=== PATIENT | male | born 1950 | race Caucasian/White ===

== ENCOUNTER 2023-06-17 10:00 | Outpatient (OUT) | payer MEDICARE, SELFPAY ==
[2023-06-17 11:23] LABS: Prostate Specific Antigen Dx 3.79 ng/mL (<=4.00)
== END 2023-06-17 10:01 | disposition home or self-care (01) ==
LOC: LAB 10:03
PROVIDERS: PCP Family Medicine; Visit Provider Urology
DX: R97.20 Elevated prostate specific antigen [PSA] (principal)
CPT/HCPCS: 36415; 84153

== ENCOUNTER 2024-06-26 15:16 | Outpatient (OUT) | payer MEDICARE, SELFPAY ==
[2024-06-26 17:36] LABS: Prostate Specific Antigen Dx 4.32 ng/mL (<=4.00)
== END 2024-06-26 15:17 | disposition home or self-care (01) ==
LOC: LAB 15:16
PROVIDERS: PCP Family Medicine; Visit Provider Urology
DX: R97.20 Elevated prostate specific antigen [PSA] (principal)
CPT/HCPCS: 36415; 84153

== ENCOUNTER 2025-06-27 13:35 | Outpatient (OUT) | payer MEDICARE, SELFPAY ==
--- OUTSIDE RECORDS SUMMARY | 2025-06-27 13:53 | XMS_ITS | CCD ---
Author Organization [facility] Care Team Providers Care Production Tester Name Role Phone SERAFINNILAM CONROY Ashish Primary Care Physician TORY, DR OLIVERA Admitting Unavailable TORY, DR OLIVERA Attending Unavailable SERAFIN, DR DOYLE Primary Care Unavailable TORY, DR OLIVERA Consulting Unavailable EDMUNDO, DR KATIE Palafox Consulting Unavailable MD Serafin [facility] Primary Care Provider MD Pino Rust Attending Provider [phone] Pino Rust Attending Unavailable Pino Rust Ad[facility] Un[facility] Alfa GUAJARDO Attending Unavailable Alfa GUAJARDO Attending Unavailable Serafin MOSHER, Nilam Ashish Unavailable Serafin MOSHER, Nilam Hinojosa Primary Care Provider Serafin MOSHER, Nilam Hinojosa Primary Care Provider [phone] Serafin MOSHER, Nilam Hinojosa Primary Care Provider [phone] Serafin MOSHER Nilam Hinojosa Primary Care Provider [phone] Damian Morrison LPN Unavailable SERAFINNILAM CONROY Primary Care Unavailable ANAYELI CONROY Attending Unavailable SALEEM LOPEZ Attending Unavailable SALEEM LOPEZ Referring Unavailable SERAFIN, NILAM Hinojosa Primary Care Unavailable ALDAIR NICOLE Attending Unavailable SERAFIN, NILAM F Referring Unavailable SERAFIN, NILAM F Primary Care Unavailable SERAFIN, NILAM F Referring Unavailable SERAFIN, NILAM F Primary Care Unavailable SERAFIN, NILAM F Referring Unavailable SERAFIN, NILAM F Primary Care Unavailable EVER WELCH Referring Unavailable SERAFIN, NILAM F Primary Care Unavailable PACO CAPUTO Attending Unavailable PACO CAPUTO Referring Unavailable SERAFIN, NILAM F Primary Care Unavailable EVER WELCH Admitting Unavailable EVER WELCH Attending Unavailable EVER WELCH Referring Unavailable NILAM BETANCOURT Primary Care Unavailable EVER WELCH Admitting Unavailable EVER WELCH Attending Unavailable EVER WELCH Referring Unavailable NILAM BETANCOURT Primary Care Unavailable NILAM BETANCOURT Attending Unavailable NILAM BETANCOURT Attending Unavailable NILAM BETANCOURT Attending Unavailable FABIAN QUINONEZ Attending Unavailable NILAM BETANCOURT Referring Unavailable FABIAN QUINONEZ Referring Unavailable SHANIQUA MARY Attending Unavailable SHANIQUA MARY Referring Unavailable SHANIQUA MARY Referring Unavailable NILAM BETANCOURT Referring Unavailable RAMILA BROWN Attending Unavailable RAMILA BROWN Attending Unavailable RAMILA BROWN Attending Unavailable Allergies Allergy Classification Reported Allergen(s) Allergy Type Date of Onset Reaction(s) Facility (20 sources) Sulfamethoxazole / Trimethoprim; Translations: [SULFAMETHOXAZOLE-TR IMETHOPRIM] Drug Allergy 3 [facility] Work Phone: Medications Current Medications Medication Drug Class(es) Dates Sig (Normalized) Sig (Original) acetaminophen 325 mg oral tablet (20 sources) take 1 tablet by mouth every eight hours as needed acetaminophen (Tylenol) 325 MG tablet Take 325 mg by mouth every 8 (eight) hours if needed. Active acetaminophen 325 mg / HYDROcodone bitartrate 5 mg oral tablet (2 sources) Opioid Agonist Start: 07-27-2024 End: 08-06-2024 take 1 tablet by mouth every six hours for pain HYDROcodone-acetami nophen ([place]) 5-325 MG tablet Indications: Flank pain Take 1 tablet by mouth every 6 (six) hours if needed for severe pain for up to 5 days 20 tablet 07/27/2024 08/06/2024 Active [id number] 200 actuat albuterol 0.09 mg/actuat metered dose inhaler (5 sources) beta2-Adrenergic Agonist Start: 06-12-2024 Albuterol Sulfate Active INHALATION June 12, 2024 12:00am Start: 03-22-2024 End: 03-22-2025 take 2 puff(s) by inhalation every four hours for wheezing albuterol HFA 90 mcg/act inhaler Indications: Wheezing Inhale 2 puffs every 4 (four) hours if needed for wheezing 18 g 03/22/2024 07/26/2024 Discontinued (Therapy completed) ascorbic acid 1000 mg oral t ablet (20 sources) Vitamin C Ascorbic Acid (v itamin C) 1000 MG tablet Orally Active End: 05-07-2025 ascorbic acid, vitamin C, 50 0 mg tablet,chewable in the morning. 05/07/2025 Discontinued atorvastatin 20 mg oral tablet (12 sources) HMG-CoA Reductase Inhibitor Start: 03-12-2025 End: 03-12-2026 take 1 tablet by mouth once daily atorvastatin (Lipitor) 20 MG tablet Indications: Mixed hyperlipidemia Take 1 tablet (20 mg) by mouth Daily 100 tablet 3 03/12/2025 03/12/2026 Active B Complex Vitamins (VITAMIN B COMPLEX 100 IJ) (20 sources) B Complex Vitami ns (VITAMIN B COMPLEX 100 IJ) Orally Active carvedilol 12.5 mg oral tablet (20 sources) alpha-Adrenergic Claudette, beta-Adrenergic Claudette Start: 12-03-2022 End: 12-25-2024 take 1 tablet by mouth once carvedilol (Coreg) 12.5 MG tablet Indications: Benign essential hypertension , Atrial fibrillation, persistent (HCC) Take 1 tablet (12.5 mg) by mouth every 12 (twelve) hours. 90 tablet 1 08/17/2023 Active Start: 06-01-2019 take 1 mg by mouth twice daily carvedilol 3.125 mg Tab mg tab(s), Oral, BID, Refills(s) 0 Start Date: 06/01/19 Status: Ordered Start: 06-01-2019 take 1 mg by mouth twice daily carvedilol 3.125 mg Tab mg tab(s), Oral, BID, Refills(s) 0 Start Date: 06/01/19 Status: Ordered cetirizine hydrochloride 10 mg oral tablet (20 sources) Histamine-1 Receptor Antagonist Start: 06-12-2024 Cetirizine Active MG PO June 12, 2024 12:00am Start: 03-22-2024 End: 09-18-2024 take 1 tablet by mouth once daily cetirizine (ZyrTEC) 10 MG tablet Indications: Wheezing Take 1 tablet (10 mg) by mouth Daily 30 tablet 5 03/22/2024 Active cholecalciferol 0.05 mg oral capsule (7 sources) Vitamin D take 1 capsule by mouth in the morning cholecalciferol, vitamin D3, 2,000 units capsule Take 1 capsule (2,000 Units total) by mouth in the morning. Active 24 hr dilTIAZem hydrochloride 180 mg extended release oral capsule (20 sources) Calcium Channel Claudette Start: 06-12-20 Diltiazem Hcl Active MG PO June 12, 2024 12:00am Start: 05-10-2023 End: 12-25-2024 take 1 capsule by mouth every twenty-four hours in the morning dilTIAZem CD (CARDIZEM CD) 180 mg 24 hr capsule Indications: Permanent atrial fibrillation (CMS-HCC) , Benign essential hypertension Take 1 capsule (180 mg total) by mouth in the morning. 90 capsule 3 12/25/2024 Active Start: 06-01-2019 Cartia XT Oral , Daily, Refills(s) 0 Start Date: 06/01/19 Status: Ordered Cartia XT 180 MG 24 hr capsule 1 capsule 1 (one) time each day at the same time. Active hydroCHLOROthiazide 25 mg oral tablet (20 sources) Thiazide Diuretic Start: 06-12-2024 Hydrochlorothiazide Active MG PO June 12, 2024 12:00am Start: 03-28-2024 End: 10-18-2024 take 1 tablet by mouth once daily hydroCHLOROthiazide (HYDRODiuril) 25 MG tablet Indications: Benign essential hypertension Take 1 tablet (25 mg) by mouth Daily 90 tablet 11 10/18/2024 Active Start: 08-06-2019 take 1 mg by mouth o nce daily hydrochlorothiazide 12.5 mg Cap mg cap(s), Oral, Daily, Refills(s) 0 Start Date: 08/06/19 Status: Ordered Start: 07-11-2019 End: 05-07-2025 take 1 tablet by mouth once daily hydroCHLOROthiazide (HYDRODIURIL) 12.5 mg tablet Take 1 tablet (12.5 mg total) by mouth daily. 45 tablet 3 11/24/2023 05/07/2025 Discontinued magnesium oxide 400 mg oral capsule (20 sources) magnesium oxide 400 MG capsule 1 (one) time each day at the same time. Active End: 05-07-2025 take 1 tablet by mouth in the morning magnesium oxide (MAG-OX) 400 mg tablet Take 1 tablet (400 mg total) by mouth in the morning. 05/07/2025 Discontinued take 250 mg by mouth in the morning MAGNESIUM OXIDE ORAL Take 250 mg by mouth in the morning. Active Multiple Vitamins-Minerals (PRESERVISION AREDS PO) (11 sources) take 1 tablet by mouth once daily Multiple Vitamins-Minerals (PRESERVISION AREDS PO) Take 1 tablet by mouth Daily Active polyethylene glycol 3350 35206 mg powder for oral solution (11 sources) Osmotic Laxative Start: 024 End: polyethylene glycol, PEG, 3350 (MiraLax) 17 GM/SCOOP powder Indications: Slow transit constipation Take 17 g by mouth Daily 527 g 07/27/2024 08/27/2024 Active rivaroxaban 20 mg oral tablet (20 sources) Factor Xa Inhibitor Start: End: rivaroxaban (Xarelto) 20 MG tablet Indications: Atrial fibrillation, persistent (HCC) TAKE 1 TABLET DAILY WITH EVENING MEAL 90 tablet 3 12/10/2024 Active Start: 06-01-2019 Xarelto Oral, Refills(s) 0 Start Date: 06/01/19 Status: Ordered semaglutide, weight loss, (WEGOVY) 1.7 mg/0.75 mL pen injector (1 source) Start: 03-20-2025 End: 07-18-2025 semaglutide, weight loss, (WEGOVY) 1.7 mg/0.75 mL pen injector Inject under the skin once a week. 03/20/2025 07/18/2025 Active Semaglutide-Weight Management (Wegovy) 2.4 MG/0.75ML solution auto-injector (7 sources) Start: 06-11-2025 End: 06-11-2025 inject 2.4 mg by subcutaneous injection every week Semaglutide-Weight Management (Wegovy) 2.4 MG/0.75ML solution auto-injector Indications: Obesity (BMI 30-39.9) INJECT 2.4 MG UNDER THE SKIN ONE TIME PER WEEK 3 mL 11 06/11/2025 06/11/2025 Discontinued Start: 06-11-2025 inject 2.4 mg by sub cutaneous injection every week Semaglutide-Weight Management (Wegovy) 2.4 MG/0.75ML solution auto-injector Indications: Obesity (BMI 30-39.9) INJECT 2.4 MG UNDER THE SKIN ONE TIME PER WEEK 3 mL 11 06/11/2025 Active vit C/E/zinc ox/rose/lut/zeax (ICAPS AREDS2 ORAL) (1 source) take 2 capsules by mouth in the morning vit C/E/zinc ox/rose/lut/zeax (ICAPS AREDS2 ORAL) Take 2 capsules by mouth in the morning. Active vitamin b12 1 mg oral tablet (8 sources) Vitamin B12 End: 05-07-20 take 1 tablet by mouth in the morning cyanocobalamin 1000 MCG tablet Take 1 tablet (1,000 mcg total) by mouth in the morning. Active Completed/Discontinued Medications Medication Drug Class(es) Dates Sig (Normalized) Sig (Original) baclofen 20 mg oral tablet (10 sources) gamma-Aminobutyri c Acid-ergic Agonist Start: 08-06-2024 End: 09-05-2024 take 1 tablet by mouth in the morning, then take 1 tablet by mouth in the evening, then take 1 tablet by mouth at bedtime baclofen (Lioresal) 20 MG tablet Indications: Muscle spasm Take 1 tablet (20 mg) by mouth in the morning and 1 tablet (20 mg) in the evening and 1 tablet (20 mg) before bedtime. 90 tablet 08/06/2024 08/20/2024 Discontinued 5 ml bupivacaine hydrochloride 5 mg/ml injection (4 sources) Amide Local Anesthetic Start: 06-24-2025 End: 06-24-2025 bupivacaine PF (Marcaine) 0.5 % injection 1 mL Start: 06-24-2025 End: 06-24-2025 1 mL, Injection, Once PRN Pr ocedure, Starting on Tue06/24/25 at 1327, For 1 dose cephalexin 500 mg oral capsule (7 sources) Cephalosporin Antibacterial Start: 07-21-2024 End: 08-06-2024 take 1 capsule by mouth in the morning cephalexin (Keflex) 500 MG capsule Take 500 mg by mouth in the morning and 500 mg in the evening. 07/21/2024 08/06/2024 Discontinued gabapentin 100 mg oral capsule (20 sources) Anti-epileptic Agent Start: 06-20-2024 End: 06-20-2025 gabapentin (Neurontin) 100 MG capsule Indications: Neuropathy Take 1 capsule (100 mg) by mouth as needed at bedtime (pain) 30 capsule 3 06/20/2024 08/20/2024 Discontinued (Side effects) 1 ml methylPREDNISolone acetate 40 mg/ml injection (4 sources) Corticosteroid Start: 06-24-2025 End: 06-24-2025 methylPREDNISolone acetate (DEPO-Medrol) injection 40 mg Start: 06-24-2025 End: 06-24-2025 40 mg, Intra-articular, Once PRN Procedure, Starting on Tue06/24/25 at 1327, For 1 dose semaglutide 0.25 mg or 0.5 m g (2 mg/3 mL) pen injector (3 sources) End: 05-07-2025 semaglutide 0.25 mg or 0.5 m g (2 mg/3 mL) pen injector Inject under the skin every 7 days. 05/07/2025 Discontinued semaglutide 0.25 mg or 0.5 mg (2 mg/3 mL) pen injector Inject under the skin every 7 days. Active SEMAGLUTIDE, 1 MG/DOSE, SC (9 sources) End: 03-12-2025 SEMAGLUTIDE, 1 MG/DOSE, SC I nject under the skin 0.6mg 03/12/2025 Discontinued (Therapy completed) SEMAGLUTIDE, 1 M G/DOSE, SC Inject under the skin 0.6mg Active Semaglutide-Weight Managemen t (Wegovy) 1.7 MG/0.75ML solution auto-injector (5 sources) Start: 03-20-2025 End: 06-11-2025 Semaglutide-Weight Managemen t (Wegovy) 1.7 MG/0.75ML solution auto-injector Indications: Obesity (BMI 30-39.9) Inject 1.7 mg under the skin every 7 (seven) days for 30 days, THEN 2.4 mg every 7 (seven) days. 6 mL 2 03/20/2025 06/11/2025 Discontinued (Therapy completed) Start: 03-20-2025 End: 07-18-2025 Semaglutide-Weight Managemen t (Wegovy) 1.7 MG/0.75ML solution auto-injector Indications: Obesity (BMI 30-39.9) Inject 1.7 mg under the skin every 7 (seven) days for 30 days, THEN 2.4 mg every 7 (seven) days. 6 mL 2 03/20/2025 07/18/2025 Active Start: 03-12-2025 End: 07-10-2025 Semaglutide-Weight Managemen t (Wegovy) 1.7 MG/0.75ML solution auto-injector Indications: Obesity (BMI 30-39.9) Inject 1.7 mg under the skin every 7 (seven) days for 30 days, THEN 2.4 mg every 7 (seven) days. 6 mL 2 03/12/2025 07/10/2025 Active Semaglutide-Weight Management 2.4 MG/0.75ML solution auto-injector (3 sources) Start: 06-11-2025 End: 06-11-2025 Semaglutide-Weight Management 2.4 MG/0.75ML solution auto-injector Indications: Obesity (BMI 30-39.9) Inject 2.4 mg under the skin every 7 (seven) days 3 mL 11 06/11/2025 06/11/2025 Discontinued tiZANidine 4 mg oral tablet (4 sources) Central alpha-2 Adrenergic Agonist Start: 08-10-2024 End: 08-20-2024 take 1 tablet by mouth twice daily as needed for muscle spasms tiZANidine (Zanaflex) 4 MG tablet Indications: Muscle spasm Take 1 tablet (4 mg) by mouth 2 (two) times a day as needed for muscle spasms for up to 10 days 30 tablet 08/10/2024 08/20/2024 Discontinued Vitamin B Complex (7 sources) End: 05-07-2025 take 1 tablet by mouth in the morning b complex vitamins tablet Take 1 tablet by mouth in the morning. 05/07/2025 Discontinued take 1 tablet by mouth in the mo rning b complex vitamins tablet Take 1 tablet by mouth in the morning. Active take 1 tablet by mouth in the mo rning b complex vitamins tablet Take 1 tablet by mouth in the morning. 0 Active Vitamin D-Vitamin K (Vitamin K2-Vitamin D3) 45-2000 MCG-UNIT capsule (4 sources) End: 07-26-2024 Vitamin D-Vitamin K (Vitamin K2-Vitamin D3) 45-2000 MCG-UNIT capsule 1 capsule 1 (one) time each day at the same time. 07/26/2024 Discontinued (Therapy completed) Vitamin D-Vitami n K (Vitamin K2-Vitamin D3) 45-2000 MCG-UNIT capsule 1 capsule 1 (one) time each day at the same time. Active Problems Active Problems Problem Classification Problem Date Documented Da te Episodic/Chronic Calculus of urinary tract (5 sources) Kidney stone; Translations: [Calculus of kidney] 12-17-2019 Episodic Cardiac dysrhythmias (20 sources) Atrial fibrillation; Translations: [Persistent atrial fibrillation] Onset: 07-11-2017 Resolved: 12-20-2024 06-01-2019 Chronic Disorders of lipid metabolism (20 sources) Hyperlipidemia; Translations: [Hyperlipidemia, unspecified] Onset: 11-12-2015 Resolved: 11-24-2023 04-08-2023 Chronic Essential hypertension (20 sources) Benign essential hypertension; Translations: [Essential (primary) hypertension] Onset: 07-29-2010 Resolved: 11-24-2023 04-08-2023 Chronic Genitourinary congenital anomalies (6 sources) Congenital lobulation of kidney; 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, fused and horseshoe kidney] Onset: 07-05-2022 Chronic Genitourinary symptoms and ill-defined conditions (3 sources) Urge incontinence of urine 12-17-2019 Chronic Genitourinary symptoms and ill-defined conditions (3 sources) Blood in urine 12-17-2019 Episodic Hyperplasia of prostate (20 sources) Benign prostatic hypertrophy with outflow obstruction; Translations: [Benign prostatic hyperplasia with lower urinary tract symptoms] Onset: 06-28-2019 Chronic Osteoarthritis (20 sources) Osteoarthritis; Translations: [Unspecified osteoarthritis, unspecified site] Onset: 03-08-2016 04-08-2023 Chronic Other and ill-defined heart disease (20 sources) Cardiomegaly; Translations: [Cardiomegaly] Onset: 12-10-2020 04-08-2023 Chronic Other and ill-defined heart disease (20 sources) Disorder of right cardiac ventricle ; Translations: [Cardiomegaly] Onset: 04-08-2023 04-08-2023 Chronic Other connective tissue disease (5 sources) Spasm; Translations: [Other muscle spasm] 08-20-2024 Episodic Other connective tissue disease (4 sources) Pain in left lower limb; Translations: [Pain in left leg] 03-12-2025 Episodic Other connective tissue disease (4 sources) Muscle weakness of upper limb; Translations: [Other symptoms and signs involving the musculoskeletal system] 06-11-2025 Episodic Other connective tissue disease (4 sources) Pain in right arm; Translations: [Pain in right arm] 06-11-2025 Episodic Other connective tissue disease (4 sources) Pain in left arm; Translations: [Pain in left arm] 06-11-2025 Episodic Other diseases of kidney and ureters (1 source) Urinary tract obstruction; Translations: [Other obstructive and reflux uropathy] Onset: 07-05-2022 Episodic Other ear and sense organ disorders (4 sources) Sensorineural hearing loss, bilateral; Translations: [SENSORINEURAL HEAR LOSS BILATERAL] Onset: 10-18-2022 Chronic Other ear and sense organ disorders (1 source) Unspecified hearing loss, right ear; Translations: [UNSPECIFIED HEARING LOSS RIGHT EAR] Onset: 10-23-2022 Chronic Other ear and sense organ disorders (20 sources) Mixed conductive and sensorineural hearing loss of left ear; Translations: [Mixed conductive and sensorineural hearing loss, unilateral, left ear, with unrestricted hearing on the contralateral side] Onset: 04-11-2019 04-08-2023 Chronic Other ear and sense organ disorders (20 sources) Hearing loss of right ear; Translations: [Unspecified hearing loss, right ear] Onset: 04-08-2023 04-08-2023 Chronic Other ear and sense organ disorders (20 sources) Sensorineural hearing loss, bilateral; Translations: [Sensorineural hearing loss, bilateral] Onset: 08-09-2019 04-08-2023 Chronic Other gastrointestinal disorders (2 sources) Slow transit constipation; Translations: [Slow transit constipation] 08-20-2024 Episodic Other lower respiratory disease (2 sources) Fibrosis of lung; Translations: [Pulmonary fibrosis, unspecified] 12-10-2024 Chronic Other male genital disorders (3 sources) Impotence 06-16-2020 Chronic Other nervous system disorders (20 sources) Carpal tunnel syndrome of left wrist; Translations: [Carpal tunnel syndrome, left upper limb] Onset: 12-09-2021 04-08-2023 Chronic Other nervous system disorders (2 sources) Neuropathy; Translations: [Polyneuropathy, unspecified] 12-10-2024 Chronic Other nervous system disorders (2 sources) Involuntary movement; Translations: [Unspecified abnormal involuntary movements] 12-10-2024 Episodic Other nervous system disorders (4 sources) Abnormal gait; Translations: [Unspecified abnormalities of gait and mobility] 03-12-2025 Episodic Other nervous system disorders (4 sources) Numbness of hand; Translations: [Anesthesia of skin] 06-11-2025 Episodic Other nervous system disorders (4 sources) Numbness; Translations: [Anesthesia of skin] 06-11-2025 Episodic Other non-traumatic joint disorders (4 sources) Rotator cuff arthropathy of left shoulder; Translations: [Other specific arthropathies, not elsewhere classified, left shoulder] 06-11-2025 Chronic Other non-traumatic joint disorders (4 sources) Rotator cuff arthropathy of left shoulder 06-11-2025 Episodic Other non-traumatic joint disorders (2 sources) Pain in left shoulder; Translations: [Pain in joint, shoulder region] 06-23-2025 Episodic Other nutritional; endocrine; and metabolic disorders (1 source) Obese class I; Translations: [Body mass index (BMI) 32.0-32.9, adult] Onset: 07-05-2022 Chronic Other nutritional; endocrine; and metabolic disorders (11 sources) Body mass index 30+ - obesity; Translations: [Obesity, unspecified] 07-05-2022 Chronic Other nutritional; endocrine; and metabolic disorders (20 sources) Obesity caused by energy imbalance; Translations: [Class 1 obesity due to excess calories in adult] Onset: 04-02-2019 04-08-2023 Chronic Other screening for suspected conditions (not mental disorders or infectious disease) (13 sources) Abnormal findings on diagnostic imaging of urinary organs; Translations: [Culture positive for methicillin resistant Staphylococcus aureus] Onset: 11-17-2018 06-01-2019 Episodic Comment on above: MRSA buttock wound Other upper respiratory infections (1 source) Chronic maxillary sinusitis; Translations: [CHRONIC MAXILLARY SINUSITIS] Onset: 10-23-2022 Chronic Residual codes; unclassified (20 sources) Daytime hypersomnia; Translations: [Hypersomnia, unspecified] Onset: 12-10-2020 04-08-2023 Chronic Residual codes; unclassified (20 sources) Obstructive sleep apnea syndrome; Translations: [Obstructive sleep apnea (adult) (pediatric)] Onset: 09-16-2010 Resolved: 11-24-2023 04-08-2023 Chronic Residual codes; unclassified (7 sources) FH: Cardiovascular disease; Translations: [Family history of ischemic heart disease and other diseases of the circulatory system] 07-07-2017 Episodic Spondylosis; intervertebral disc disorders; other back problems (20 sources) Cervical spondylosis without myelopathy; Translations: [Spondylosis without myelopathy or radiculopathy, cervical region] Onset: 08-08-2019 Resolved: 10-21-2021 04-08-2023 Chronic Unclassified (1 source) Drug therapy finding 06-29-2024 Unclassified (2 sources) Autogenerated Problem Onset: 04-15-2025 04-15-2025 Unclassified (1 source) Permanent atrial fibrillation; Translations: [Permanent atrial fibrillation] Onset: 10-14-2020 Unclassified (2 sources) unknown 06-24-2025 Past or Other Problems Problem Classification Problem Date Documented Da te Episodic/Chronic Abdominal pain (5 sources) Flank pain; Translations: [Unspecified abdominal pain] Onset: 07-21-2024 07-26-2024 Episodic Cardiac dysrhythmias (20 sources) Bradycardia; Translations: [Bradycardia, unspecified] Onset: 07-11-2017 04-08-2023 Episodic Fracture of lower limb (20 sources) Closed fracture patella, vertical ; Translations: [Displaced longitudinal fracture of right patella, subsequent encounter for closed fracture with delayed healing] Onset: 08-24-2021 04-08-2023 Episodic Mood disorders (20 sources) Mood disorders Onset: 09-29-2020 Resolved: 03-28-2024 03-28-2024 Open wounds of extremities (7 sources) Open wound of left lower leg; Translations: [Unspecified open wound, left lower leg, initial encounter] Onset: 05-11-2023 05-11-2023 Episodic Other aftercare (20 sources) Long-term current use of anticoagulant; 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] Onset: 04-11-2019 Episodic Other connective tissue disease (20 sources) Full thickness rotator cuff tear; Translations: [Complete rotator cuff tear or rupture of unspecified shoulder, not specified as traumatic] Onset: 09-16-2020 04-08-2023 Episodic Other connective tissue disease (20 sources) Rotator cuff arthropathy of right shoulder; Translations: [Unspecified rotator cuff tear or rupture of right shoulder, not specified as traumatic] Onset: 04-23-2019 04-08-2023 Episodic Other connective tissue disease (1 source) Pain in left leg; Translations: [Pain in left leg] Onset: 03-19-2025 Episodic Other lower respiratory disease (8 sources) Dyspnea on exertion; Translations: [Other forms of dyspnea] Onset: 03-14-2018 03-14-2018 Episodic Other lower respiratory disease (1 source) Other forms of dyspnea; Translations: [Other forms of dyspnea] Onset: 03-14-2018 Episodic Other nervous system disorders (1 source) Unspecified abnormalities of gait and mobility; Translations: [Unspecified abnormalities of gait and mobility] Onset: 03-19-2025 Episodic Other nutritional; endocrine; and metabolic disorders (7 sources) Overweight; Translations: [Overweight] Resolved: 11-24-2023 11-24-2023 Episodic Phlebitis; thrombophlebitis and thromboembolism (20 sources) Deep venous thrombosis; Translations: [Acute embolism and thrombosis of unspecified deep veins of unspecified lower extremity] Onset: 06-14-2011 Resolved: 11-24-2023 08-02-2019 Episodic Pulmonary heart disease (20 sources) H/O: pulmonary embolus; Translations: [Personal history of pulmonary embolism] Onset: 03-25-2018 04-08-2023 Episodic Residual codes; unclassified (20 sources) Family history of ischemic heart disease; Translations: [Family history of ischemic heart disease and other diseases of the circulatory system] Onset: 07-29-2010 Resolved: 11-24-2023 04-08-2023 Episodic Residual codes; unclassified (20 sources) History of operative procedure on lumbosacral spinal structure; Translations: [Other specified postprocedural states] Onset: 08-08-2019 Resolved: 11-24-2023 04-08-2023 Episodic Skin and subcutaneous tissue infections (7 sources) Cellulitis; Translations: [Cellulitis, unspecified] Onset: 05-25-2023 05-25-2023 Episodic Spondylosis; intervertebral disc disorders; other back problems (20 sources) Cervicalgia; Translations: [Cervical radiculopathy] Onset: 08-08-2019 04-08-2023 Episodic Unclassified (1 source) Preprocedural examination done 05-08-2025 Results Test Name Value Interpretation Reference Range Facility No Panel Informationon 06-24 LINDA Stauffer 06/24/2025 1:51 PM L Inj/Asp: L subacromial bursa on 06/24/2025 1:27 PM Indications: pain Details: 21 G needle, posterior approach Medications: 40 mg methylPREDNISolone acetate 40 MG/ML; 1 mL bupivacaine PF 0.5 % Outcome: tolerated well, no immediate complications Utilizing aseptic technique with universal precautions . Pt given injection Left Shoulder SA space ( code [id number] LT) Procedure, treatment alternatives, risks and benefits explained, specific risks discussed. Consent was given by the patient. Patient was prepped and draped in the usual sterile fashion. [facility] Edvert e XR Shoulder - left 2 Viewson 06-24-2025 Imaging Result: Left Shoulder AP and Scap Y No acute fracture or dislocation Bone Structures clavicle and scapula and humeral head appear normal alignment, likely post surgical changes with heterotrophic ossification on distal clavicle. Glenohumeral joint space narrowed with subchondral sclerosis and minimal spurring. Soft tissues and limited visualized lung ashby 0- unchanged granuloma left lung from prior CXR Impression: Post surgical changes with mild glenohumeral arthritis. [facility] Edvert e Radiology Study observation (narrative) [facility] Enject ECG 12 leadon 05-08-2025 [facility] CBC panel Auto (Bld)on 07-26 Erythrocyte distribution width (RBC) [Ratio] 12.6 % 11.0 - 15.0 % [facility] Hematocrit (Bld) [Volume fraction] 39.2 % 38.5 - 50.0 % [facility] Hemoglobin (Bld) [Mass/Vol] 13.2 g/dL 13.2 - 17.1 g/dL [facility] MCH (RBC) [Entitic mass] 30.7 pg 27.0 - 33.0 pg [facility] MCHC (RBC) [Mass/Vol] 33.7 g/dL 32.0 - 36.0 g/dL [facility] MCV (RBC) [Entitic vol] 91.2 fL 80.0 - 100.0 fL [facility] Platelet mean volume (Bld) [Entitic vol] 10.1 fL 7.5 - 12.5 fL [facility] Platelets (Bld) [#/Vol] 202 10*3[facility]L [facility] RBC (Bld) [#/Vol] 4.30 10*6/uL [facility] WBC (Bld) [#/Vol] 4.2 10*3/uL [facility] ABDOMEN PELVIS WO IV CONT Raquel 07-26-2024 CT ABDOMEN PELVIS WO IV CONTRAST EXAM: CT - CT ABD PEL WO CONTRAST Clinical History: Right side abdominal pain, getting worse Reference Exam: No comparison Imaging technique: Helically acquired axial source imaging of the abdomen, then the pelvis provided from above the hemidiaphragms, through the symphysis pubis. No IV contrast material. Findings: Lung bases: The lung bases are clear. No pleural effusion. No basilar pneumothorax. What is seen of the heart and pericardium remarkable for generous heart size. Genitourinary system: Horseshoe kidney. Small calcification in the left renal moiety 0.3 cm, apparently nonobstructing. Negative for ureterectasis. The urinary bladder contains no stones. Visceral analysis: Subtle calcification is present in the cephalad dome of the right lobe of the liver. Hepatic parenchymal attenuation is normal, without evidence of space-occupying mass or intrahepatic biliary ductal dilatation by this noncontrasted test. The gallbladder is present. It contains no abnormal density. Negative for extrahepatic biliary ductal dilatation. The adrenal glands, and the pancreas are unremarkable. Partially calcified low-density mass inferior medial spleen 4 cm in size, probably a partially calcified splenic cyst. Retroperitoneum: The abdominal aorta is nonaneurysmal. Minor aortoiliac atherosclerosis. The IVC is unremarkable. No para-aortic or retrocrural lymphadenopathy. The central mesentery is unremarkable. Bowel: Gastric morphology is normal. The caliber of loops of small bowel and colon unremarkable. Fecal loading of the colon, mild severity particularly involving the transverse colon. No pericecal inflammatory phlegmon. The appendix is visualized and is unremarkable. Abdominal and pelvic wall: No regional hernia of the anterior abdominal wall identified. Noncontrast CT pelvis: Prostate glandular calcifications. The prostate gland measures 5.6 cm in width The urinary bladder is unremarkable. Pelvic sidewalls are symmetrical. No pelvic or inguinal lymphadenopathy, mass, or ascites. Bilateral fat-containing inguinal hernias more prominent on the left. Osseous analysis: Gentle levorotoscoliosis of the lower lumbar spine. Multilevel spondylosis and degenerative disc space height loss. Facet hypertrophic arthropathic changes at the lumbosacral junction. Irregular spinous process/posterior elemental interface at L2 suggests a remote fracture of the spinous process base. Background osteopenia. Impression: 1. Negative for urolithiasis. 2. Partially calcified splenic cyst inferior spleen 4 cm in size. 3. Horseshoe kidney. Small calcification in the left renal moiety 0.3 cm. No hydronephrosis. 4. Negative for intestinal stasis. Fecal loading of the colon. 5. No inflammatory phlegmon identified in the abdomen or pelvis. 6. Subacute fracture of the base of the spinous process of L2. Electronically Signed Mateo Segura M.D. 2024-07-26 10:47:32 Normal Not Available Comment on above: Order Comment: RT SI DE PAIN OFF AND ON GETTING WORSE Laboratory - Chemistry and C hemistry - challengeon 07-26-2024 Albumin [Mass/Vol] 4.0 g/dL 3.6 - 5.1 g/dL [facility] Albumin/Globulin [Mass ratio] 1.6 {ratio} [facility] ALP [Catalytic activity/Vol] 102 U/L 35 - 144 U/L [facility] ALT [Catalytic activity/Vol] 38 U/L 9 - 46 U/L [facility] Amylase [Catalytic activity/Vol] 45 U/L 21 - 101 U/L [facility] AST [Catalytic activity/Vol] 27 U/L 10 - 35 U/L [facility] Bilirubin [Mass/Vol] 0.5 mg/dL 0.2 - 1.2 mg/dL [facility] Calcium [Mass/Vol] 8.9 mg/dL 8.6 - 10. 3 mg/dL [facility] Chloride [Moles/Vol] 101 mmol/L 98 - 110 mmol/L [facility] CO2 [Moles/Vol] 29 mmol/L 20 - 32 mmol/L [facility] Creatinine [Mass/Vol] 0.79 mg/dL 0.70 - 1.28 mg/dL [facility] GFR/1.73 sq M.predicted among non-blacks MDRD (S/P/Bld) [Vol rate/Area] 94 mL/min/{1.73_m2} > OR = 60 mL/min/1.73m 2 [facility] Globulin (S) [Mass/Vol] 2.5 g/dL [facility] Glucose [Mass/Vol] 103 mg/dL High 65 - 99 mg/dL [facility] Comment on above: Fasting reference interval For someone without known diabetes, a glucose value between 100 and 125 mg/dL is consistent with prediabetes and should be confirmed with a follow-up test. Lipase [Catalytic activity/Vol] 21 U/L 7 - 60 U/L [facility] Potassium [Moles/Vol] 4.2 mmol/L 3.5 - 5.3 mmol/L [facility] Protein [Mass/Vol] 6.5 g/dL 6.1 - 8.1 g/dL [facility] Sodium [Moles/Vol] 137 mmol/L 135 - 146 mmol/L [facility] Urea nitrogen [Mass/Vol] 18 mg/dL 7 - 25 mg/dL [facility] Urea nitrogen/Creatinin e [Mass ratio] SEE NOTE: [facility] Comment on above: Not Reported: BUN an d Creatinine are within reference range. No Panel Informationon 07-26 Interpretation and review of laboratory results Abnormal [facility] Performing Organizat ion Information Site ID: [id number] Name: [facility] Address: [address] [place] [phone] Director: Albertina Stevenson [facility] Urinalysis macro (dipstick) panel (U)on 07-26-2024 Bilirubin, UA Negative Negative - 4(70) +++ mg/dL [facility] Blood, UA Negative Negative - 50 Jerson/mcL [facility] Clarity, UA Clear [facility] Color, UA Yellow [facility] Glucose, UA Negative Negative - 1999(110) ++++ mg/dL [facility] Interpretation and review of laboratory results Normal [facility] Ketones, UA Negative Negative - 160(16) ++++ mg/dL [facility] Leukocytes, UA Negative Negative - 500+++ Tammy/mcL [facility] Nitrite, UA Negative Negative - Positive [facility] pH, UA 5.0 5 - 9 [facility] e Protein, UA Negative Negative - 1999(20) ++++ mg/dL [facility] Spec Grav, UA 1.025 1 - 1.03 [facility] Urobilinogen, UA 1.0 0.2 - 12 mg/dL [facility] XR CHEST 2 VIEWSon XR CHEST 2 VIEWS EXAM: XR - CHEST 2 VIEWS Clinical History: Acute right flank pain, shorness of breath Reference Exam: 06/12/2024 Findings: The cardiopericardial silhouette is normal in appearance. The pulmonary vessels are not cephalized. Calcified granulomatous residua in the left lung. Minor atherosclerosis of the aortic arch. There is no alveolar edema, pneumonia, or pneumothorax. Negative for pleural effusion. The skeleton is remarkable for fragmentation of the distal left clavicle with ossifications relative to the left coracoclavicular ligament region. Glenohumeral arthropathy on the right. Multilevel thoracic spinal spondylosis and degenerative disc space height loss. Impression: Negative for overt heart failure or pneumonia. Dictated on: 07/26/2024 11:04 AM This report has been electronically signed and approved by the interpreting Radiologist. Electronically Signed Mateo Segura M.D. 2024-07-26 11:05:21 Normal Not Available CBC AND AUTO DIFFon 07-21-20 24 ABSOLUTE BASOPHIL 0.0 X10E9/L Normal 0.0-0.2 [facility] Comment on above: Performed By: #### Nyasia COX CMP, 3040-3 #### [facility] ([id number]) [address] [place] [address]855 ABSOLUTE NEUTROPHIL 3.8 X10E9/L Normal 1.5-6.6 [facility] Comment on above: Performed By: #### Nyasia COX CMP, 3040-3 #### [facility] ([id number]) [address] [place] [address] 24318 Basophils/100 WBC (Bld) 0.8 % Normal [facility] Comment on above: Performed By: #### Nyasia COX CMP, 3040-3 #### [facility] ([id number]) [address] [place] [address] 75131 Eosinophils (Bld) [#/Vol] 0.2 10*3/uL Normal 0.0-0.4 [facility] Comment on above: Performed By: #### Nyasia COX CMP, 3040-01 #### [facility] ([id number]) [address] [place] [address] 51253 Eosinophils/100 WBC (Bld) 3.3 % Normal [facility] Comment on above: Performed By: #### Nyasia COX CMP, 3040-01 #### [facility] ([id number]) [address] [place] [address] 49399 Erythrocyte distribution width (RBC) [Ratio] 13.2 % Normal 11.5-15.0 [facility] Comment on above: Performed By: #### Nyasia COX CMP, 3040-01 #### [facility] ([id number]) [address] [place] [address] 79613 Hematocrit (Bld) [Volume fraction] 36.4 % Low 39-49 [facility] Comment on above: Performed By: #### Nyasia COX CMP, 3040-01 #### [facility] ([id number]) [address] [place] [address] 24329 Hemoglobin (Bld) [Mass/Vol] 12.5 g/dL Low 13.0-17.0 [facility] Comment on above: Performed By: #### Nyasia COX CMP, 3040-01 #### [facility] ([id number]) [address] [place] [address] 18734 Lymphocytes (Bld) [#/Vol] 1.2 10*3/uL Normal 1.0-3.5 [facility] Comment on above: Performed By: #### Nyasia COX CMP, 3040-01 #### [facility] ([id number]) [address] [place] [address] 33658 Lymphocytes/100 WBC (Bld) 21.4 % Normal [facility] Comment on above: Performed By: #### Nyasia COX CMP, 3040-01 #### [facility] ([id number]) [address] [place] [address] 20315 MCH (RBC) [Entitic mass] 31.5 pg Normal 27-34 [facility] Comment on above: Performed By: #### Nyasia COX CMP, 3040-01 #### [facility] ([id number]) [address] [place] [address] 80285 MCHC (RBC) [Mass/Vol] 34.4 g/dL Normal 32-36 [facility] Comment on above: Performed By: #### Nyasia COX CMP, 3040-01 #### [facility] ([id number]) [address] [place] [address] 55430 MCV (RBC) [Entitic vol] 92 fL Normal 80-100 [facility] Comment on above: Performed By: #### Nyasia COX CMP, 3040-01 #### [facility] ([id number]) [address] [place] [address] 56099 Monocytes (Bld) [#/Vol] 0.4 10*3/uL Normal 0-0.9 [facility] Comment on above: Performed By: #### Nyasia COX CMP, 3040-01 #### [facility] ([id number]) [address] [place] [address] 72746 Monocytes/100 WBC (Bld) 6.4 % Normal [facility] Comment on above: Performed By: #### Nyasia COX CMP, 3040-01 #### [facility] ([id number]) [address] [place] [address] 62516 Neutrophils/100 WBC (Bld) 68.1 % Normal [facility] Comment on above: Performed By: #### Nyasia COX CMP, 3040-01 #### [facility] ([id number]) [address] [place] [address] 59246 Platelet mean volume (Bld) [Entitic vol] 7.6 fL Normal 7-12 [facility] Comment on above: Performed By: #### C KENNY, CMP, 3040-3 #### [facility] ([id number]) [address] [place] [address] 30429 Platelets (Bld) [#/Vol] 183 10*3/uL Normal 150-450 [facility] Comment on above: Performed By: #### Nyasia COX CMP, 3039-3 #### [facility] ([id number]) [address] [place] [address] 30326 RBC COUNT 3.98 X10E12/L Low 4.10-5.70 [facility] Comment on above: Performed By: #### Nyasia COX CMP, 3039-3 #### [facility] ([id number]) [address] [place] [address] 98212 WBC (Bld) [#/Vol] 5.6 10*3/uL Normal 4.0-11.0 [facility] Comment on above: Performed By: #### Nyasia COX, CMP, 0-3 #### [facility] ([id number]) [address] [place] [address] 04964 COMPREHENSIVE METABOLIC PANE Antony 07-21-2024 Albumin [Mass/Vol] 3.7 g/dL Normal 3.2-5.3 [facility] Comment on above: Performed By: #### Nyasia COX, CMP, 3039-3 #### [facility] ([id number]) [address] [place] [address] 33001 ALP [Catalytic activity/Vol] 90 U/L Normal 39-130 [facility] Comment on above: Performed By: #### Nyasia BCA, CMP, 3039-3 #### [facility] ([id number]) [address] [place] [address] 61844 ALT [Catalytic activity/Vol] 45 U/L High 0-40 [facility] Comment on above: Performed By: #### C BCA, CMP, 3039-3 #### [facility] ([id number]) [address] [place] [address] 70015 Anion gap [Moles/Vol] 8 mmol/L Normal 5-15 [facility] Comment on above: Performed By: #### C BCA, CMP, 3039-3 #### [facility] ([id number]) [address] [place] [address] 91797 AST [Catalytic activity/Vol] 30 U/L Normal 0-41 [facility] Comment on above: Performed By: #### Nyasia BCA, CMP, 3039-3 #### [facility] ([id number]) [address] [place] [address] 43261 Bilirubin [Mass/Vol] 0.6 mg/dL Normal 0.3-1.2 [facility] Comment on above: Performed By: #### Nyasia BCA, CMP, 3 #### [facility] ([id number]) [address] [place] [address] 01190 Calcium [Mass/Vol] 8.5 mg/dL Normal 8.5-10.5 [facility] Comment on above: Performed By: #### Nyasia BCA, CMP, 3039-3 #### [facility] ([id number]) [address] [place] [address] 95945 Chloride [Moles/Vol] 101 mmol/L Normal 98-109 [facility] Comment on above: Performed By: #### C BCA, CMP, 3039-3 #### [facility] ([id number]) [address] [place] [address] 92716 CO2 [Moles/Vol] 26 mmol/L Normal 22-32 [facility] Comment on above: Performed By: #### Nyasia BCA, CMP, 3039-3 #### [facility] ([id number]) [address] [place] [address] Creatinine [Mass/Vol] 1.16 mg/dL Normal 0.70-1.20 [facility] Comment on above: Result Comment: METH OD TRACEABLE TO IDMS STANDARD Performed By: #### C RAHAT COX, 3 #### [facility] ([id number]) [address] [place] [address] 53785 GFR/1.73 sq M.predicted among non-blacks MDRD (S/P/Bld) [Vol rate/Area] 67 mL/min/{1.73_m2} Normal >59 [facility] Comment on above: Result Comment: Reported eGFR is based on the CKD-EPI 2020 equation that does not use a race coefficient. Performed By: #### C RAHAT COX, 3040-01 #### [facility] ([id number]) [address] [place] [address] 33983 Glucose [Mass/Vol] 121 mg/dL High 65-99 [facility] Comment on above: Performed By: #### C RAHAT COX, 3040-01 #### [facility] ([id number]) [address] [place] [address] 86317 Potassium [Moles/Vol] 3.7 mmol/L Normal 3.5-5.0 [facility] Comment on above: Performed By: #### Nyasia COX CMP, 3040-01 #### [facility] ([id number]) [address] [place] [address] 46858 Protein [Mass/Vol] 6.2 g/dL Normal 6.0-8.0 [facility] Comment on above: Performed By: #### Nyasia COX CMP, 3040-01 #### [facility] ([id number]) [address] [place] [address] 66163 Sodium [Moles/Vol] 135 mmol/L Normal 134-146 [facility] Comment on above: Performed By: #### C RAHAT COX, 3040-01 #### [facility] ([id number]) [address] [facility] [place] [address] Urea nitrogen [Mass/Vol] 21 mg/dL Normal 5-27 [facility] Comment on above: Performed By: #### C KENNY, RAHAT, 3040-3 #### [facility] ([id number]) [address] [facility], [place] [address] CT ABDOMEN AND PELVIS WO CON Ton 07-21-2024 CT ABDOMEN AND PELVIS WO CONT CT ABDOMEN AND PELVIS WO CONT CT ABDOMEN AND PELVIS WO CONT CLINICAL INDICATION: Abdominal/flank pain, stone suspected; right flank pain . COMPARISON STUDY: CT abdomen and pelvis 08/17/2017. CTA chest 11/24/2020. TECHNIQUE: CT scan of the abdomen and pelvis performed without IV or PO contrast. Coronal and sagittal reformats generated and reviewed. All CT scans at this facility use dose modulation, iterative reconstruction, and/or weight based dosing when appropriate to reduce radiation dose to as low as reasonably achievable. FINDINGS: Abdominal viscera and vasculature limited in evaluation secondary to lack of IV contrast. LOWER THORAX: Similar-appearing calcified granuloma in the superior lingula likely sequelae of remote granulomatous infection. Trace subsegmental atelectasis. Biatrial dilatation. Coronary artery calcifications including heavy calcifications in the LAD. 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 No other focal hepatic lesions within limitations for technique. No biliary ductal dilitation. Gallbladder is unremarkable. SPLEEN: No splenomegaly. Unchanged hypodensity with peripheral calcification in the posterior spleen, likely representing a cyst or pseudocyst. PANCREAS: No focal masses or ductal dilatation within limitations for technique. ADRENALS: No adrenal nodules. KIDNEYS/URETERS: Horseshoe kidney. There is mild perinephric fat stranding as well as fat stranding extending in the retroperitoneum on the right, at most slightly increased along the retroperitoneum of uncertain acuity/significance. 3 mm nonobstructing left renal calculus. No ureteral calculus or collecting system dilatation. No bladder calculi. Multiple bilateral fluid attenuating likely simple renal cysts requiring no additional follow-up. GI TRACT: No dilatation or wall thickening. Unchanged duodenal diverticulum. Sigmoid diverticulosis without CT evidence of diverticulitis. The appendix is normal. PELVIC ORGANS/BLADDER: Dystrophic calcifications of the prostate, which is mildly enlarged. PERITONEUM/RETROPERITON EUM: No free air or significant free fluid. LYMPH NODES: No enlarged lymph nodes. Scattered mesenteric lymph nodes are not enlarged by size criteria. Prominent inguinal lymph nodes are not enlarged by size criteria.. VESSELS: No abdominal aortic aneurysm. BONES AND SOFT TISSUES: No suspicious osseous lesion. Significant multilevel degenerative changes of the spine. ABDOMINAL WALL: Periumbilical hernia with a small portion of protruding small bowel. Bilateral inguinal fat-containing hernias, left greater than right. IMPRESSION: * There is a 3 mm nonobstructing left renal calculus. No ureteral stone or collecting system dilatation. * Horseshoe kidney. Mild perinephric fat stranding and mild right retroperitoneal fat stranding as detailed above, slightly increased in the right retroperitoneum. This is of uncertain acuity/significance. Correlate for pyelonephritis. * Sigmoid diverticulosis without CT evidence of diverticulitis. Approved by Resident Paco Tubbs MD on 07/21/2024 1:57 PM I, Conrad Arnold MD have personally reviewed the image(s) and agree with and/or edited the report Finalized by Conrad Arnold MD on 07/21/2024 3:05 PM Normal [facility] LIPASEon 07-21-2024 Lipase [Catalytic activity/Vol] 40 U/L Normal 17-40 [facility] Comment on above: Performed By: #### C BCA, CMP, 3040-3 #### [facility] ([id number]) [address] [facility], [place] [address] URINE CULTUREon 07-21-2024 Bacteria identified Cx Nom (U) CULTURE RESULTS <10,000 ORGANISMS/ML NORMAL URO GENITAL JUAN ALBERTO Normal [facility] Comment on above: Performed By: #### 6 30-4 #### [facility] ([id number]) [address] [place] [address], [address] [place] [address] URN MACROSCOPIC NURon 2023 BILIRUBIN GILBERT Negative Normal NEG [facility] Comment on above: Performed By: #### N UM #### [facility] ([id number]) [address] [place] [address] 77130 BLOOD/HGB GILBERT Negative Normal NEG [facility] Comment on above: Performed By: #### N UM #### [facility] ([id number]) [address] [place] [address] [place] [address] GLUCOSE GILBERT Negative Normal NEG [facility] Comment on above: Performed By: #### N UM #### [facility] ([id number]) [address] [place] [address] [place] [address] KETONES GILBERT Negative Normal NEG [facility] Comment on above: Performed By: #### N UM #### [facility] ([id number]) [address] [place] [address] 61394 LEUKOCYTE ESTERASE GILBERT Negative Normal [facility] Comment on above: Performed By: #### N UM #### [facility] ([id number]) [address] [place] [address] 08500 NITRITE GILBERT Negative Normal [facility] Comment on above: Performed By: #### N UM #### [facility] ([id number]) [address] [place] [address] 51715 PH GILBERT 5.0 Normal 5.0-8.5 [facility] Comment on above: Performed By: #### N UM #### [facility] ([id number]) [address] [place] [address] 27289 PROTEIN GILBERT 30 mg/dL Abnormal NEG [facility] Comment on above: Performed By: #### N UM #### [facility] ([id number]) [address] [place] [address] [place] [address] SPECIFIC GRAVITY GILBERT >=1.030 Normal 1.003-1.035 [facility] Comment on above: Performed By: #### N UM #### [facility] ([id number]) [address] [place] [id number] UROBILINOGEN GILBERT 0.2 eu/dL Normal <1.1 [facility] Comment on above: Performed By: #### N UM #### [facility] ([id number]) [address] [place] [id number] Urology Office/Clinic Noteon 06-29-2024 Urology Office/Clinic Note Urology Office/Clinic Note Chief Complaint BPH with urinary obstruction HPI Staff 1 yr w/ PSA. Dx: BPH with urinary obstruction, elevated PSA, horseshoe kidney. S/p TURP 07/19/19, TRUS/bx 11/30/18 and 11/02/18. Previous PSA 06/17/23 - 3.79 Current PSA 06/26/24 - 4.32 Dysuria: no Incomplete bladder emptying: no Hematuria: no Frequency: no Urgency: no Nocturia: 0-1x Stream: no straining or intermittency Leaking: occasionally Post void dripping: occasionally Wearing pads/ Depends: no Urge incontinence: no Stress incontinence: no Incontinence without Sensory Awareness: no Abdominal pain: no Flank pain: no Sexual complaints: no History of Present Illness Tests reviewed: reviewed UA and PSA. I have reviewed the previous health record information and history for this patient from Dr. Guajardo. I have reviewed and verified the staff HPI to be accurate for this encounter. There have been no associated fever, chills, flank pain, or blood in the urine. Denies any urinary infections since last encounter. Review of Systems PHQ Score Initial Depression Screen Score: 0 SCORE ROS - Provider Constitutional: denies weight loss, denies hot flashes. Eyes: denies eye problems. Gastrointestinal: denies nausea, denies vomiting. Cardiovascular: denies chest pain or angina. Integumentary: no dryness Musculoskeletal: denies musculoskeletal symptoms. ENMT: denies otolaryngeal symptoms. Respiratory: no shortness of breath. Heme/Lymph: denies easy bleeding tendency, denies easy bruising tendency. Psychiatric: no confusion, no anxiety. Genitourinary: See HPI. Physical Exam Vitals & Measurements T: 37 ?C(Temporal Artery) HR: 68(Peripheral) RR: 16 BP: 111/64 HT: 70 in HT: 178 cm WT: 100 kg WT: 220 lb BMI: 31.56 General Appearance: alert, no distress, well nourished, well developed male. Assessment/Plan 73 yo male here for annual follow up with PSA. 1. Elevated PSA (R97.20: Elevated prostate specific antigen [PSA]) PSA: 06/11/20 - 3.32 06/19/21 - 4.75 06/30/22 - 2.73 06/17/23 - 3.79 06/26/24 - 4.32 Neg TRUS/bx 11/30/18. PSA continues to fluctuate. Will cont to monitor. Likely will stop PSA checks at 75 yo unless next PSA would continue to rise. -PSA in 12 mos 2. BPH with urinary obstruction (N40.1: Benign prostatic hyperplasia with lower urinary tract symptoms) S/p TURP 07/19/19. UA today neg for infection or blood. Not taking any BPH meds. No urinary concerns. -Cont symptomatic monitoring 3. 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 No issues at this time. 4. 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 Hx of DVT. Denies CVA. Elevated risk for periop complications. Follow-up With When Contact Information CASANDRA MOSHER, Alfa Palafox, URL [address] [place], [place] [id number]- Additional Instructions: 1 year w/ PSA Patient Education Prostate Cancer Screening Mer Botello, personally scribed for Dr. Guajardo on 06/29/2024 09:17:43. . Documentation recorded by the scribeMer, accurately reflects the services(s) I performed and decisions made by me. Authenticated by Dr. Guajardo on 06/29/2024 09:23:04. Problem List/Past Medical History Ongoing Abnormal radiologic findings on diagnostic imaging of renal pelvis, ureter, or bladder Anticoagulated Atrial fibrillation BMI 32.0-32.9,adult BPH with urinary obstruction Deep vein thrombosis Elevated PSA Erectile dysfunction Hematuria Horseshoe kidney Kidney stone MRSA (methicillin resistant staph aureus) culture positive Urge incontinence Historical No qualifying data Procedure/Surgical History Bladder stone analysis (07/19/2019), TURP - Transurethral resection of prostate (07/19/2019), Transrectal biopsy of prostate using ultrasound (US) guidance (11/30/2018), Transrectal biopsy of prostate using ultrasound (US) guidance (11/02/2018), Cardiac ablation using fluoroscopy guidance, Colonoscopy, Repair of rotator cuff of shoulder, Vasectomy. Medications Cartia XT, Oral, Daily carvedilol 3.125 mg Tab, Oral, BID hydrochlorothiazide 12.5 mg Cap, Oral, Daily Xarelto, Oral Allergies No Known Allergies Social History Alcohol Current, 1-2 times per year, 06/01/2019 Tobacco Never (less than 100 in lifetime) Tobacco Use:. Never Smokeless Tobacco Use:. Household tobacco concerns: No., 06/29/2024 Family History Hypertension: Father. Prostate cancer: Father. Immunizations Vaccine Date Status Comments SARS-CoV-2 (COVID-19) [id number] 10/14/2022 Recorded influenza virus vaccine, inactivated 08/10/2022 Recorded SARS-CoV-2 (COVID-19) mRNA-1273 vaccine 10/27/2021 Recorded 2023-06-27: TPV70 influenza virus vaccine, inactivated 08/04/2021 Recorded diphtheria/pertussis, acel/tetanus adult 06/03/2021 Recorded SARS-CoV-2 (more content not included)... Normal [facility] Comment on above: Result Comment: Elec tronically Signed By: Alfa GUAJARDO MD\.br\Date and Time Signed: 06/29/24 09:23 EDT\.br\Electronically Co-Signed By: Mer Clark\.br\Date and Time Co-Signed: 06/29/24 09:17 EDT XR cervical spine w flex/ext on 06-11-2024 XR cervical spine w flex/ext [facility] [place] [address] XRay Report Signed Patient: Sheri Loyola MR#: [id number] 8 : 1950 Acct:[id number] Age/Sex: 73 / M ADM Date: 06/11/24 Loc: XD Room: Type: [facility] Attending Dr: Pino Rust MD Copies to: Pino Rust MD Ordering Provider: Pino Rust MD Date of Service: 06/11/24 XR/XR cervical spine w flex/ext: M54.2 - Cervicalgia 7 views ofcervical spinewith flexion and extension HISTORY: Bilateral arm and leg numbness. Neck pain COMPARISON: None POSTOPERATIVE CHANGES: None BONY ALIGNMENT: Straightening HYPERMOBILITY::No hypermobility LISTHESIS:3 mm C4-5 anterolisthesis FRACTURE: None DISC DEGENERATION: C5-6 and C6-7 extensive spondylosis with joint space narrowing and marginal spurring. Moderate C3-4 C4-5 spondylosis. Sensitive multilevel facet degeneration. FACETS: Multilevel degeneration FORAMEN: C3-C7 bilateral bony neural foraminal narrowing DENS: Intact CRANIOCERVICAL JUNCTION: Unremarkable SOFT TISSUES: Unremarkable XR/XR cervical spine w flex/ext IMPRESSION: No hypermobility. 3 mm C4-5 anterolisthesis. Extensive degeneration. Impression dictated by: Chuck Rios M.D.06/11/2024 3:28 PM Dictation Location: [place] [address] Transcribed By: [facility] 06/11/24 1528 Dictated By: Chuck Rios DO 06/11/24 1525 Signed By: 06/11/24 1528 Normal [facility] POCT EKGOrdered By: Mercedes Mena on 11-24-2023 [facility] CREATININEon 10-18-2022 Creatinine [Mass/Vol] 1.03 mg/dL Normal 0.70-1.30 [facility] Comment on above: Performed By: #### C ATTILA #### [facility] [address] [address] [address] Karen Spencer EGFR-AF IRAQI >60 Normal >=60 [facility] Comment on above: Performed By: #### C ATTILA #### [facility] [address] [address] [address] Karen Spencer EGFR-NON AF IRAQI >60 Normal >=60 [facility] Comment on above: Performed By: #### C ATTILA #### [facility] [address] [address] [address] Karen Lovelace 06-23-2020 CNPN Telephone (CARDMN) SHERI LOYOLA ([id number]) 1950 M Date Time Provider Department 06/23/20 JESUS HERNANDEZ During your visit today, we recorded the following information about you: Cady Salas Adm 06/23/2020 4:11 PM Signed Records scanned in [facility] drive, below, and my nurse doc folder on my desk. Allergies As of Date: 06/23/2020 (No Known Allergies) Date Reviewed: 01/01/2020 Reviewed by: Jerod West - Fully Assessed Reason for Visit: Patient Update [1234] Prescriptions as of 06/19/2021 - CARTIA XT 180 mg 24 hr capsule TAKE ONE CAPSULE BY MOUTH DAILY - hydroCHLOROthiazide (HYDRODIURIL, ESIDRIX) 12.5 mg tablet - MYRBETRIQ 50 mg Tb24 - oxybutynin ER (DITROPAN XL) 10 mg 24 hr tablet - iv contrast (will be provided with radiology test) MRI Brain Inject, intravenously, once for 1 dose.No IV access, insert saline lock prior to beginning of sedation, infusion, injection of imaging exam.Discontinue saline lock post exam. If Pt. has a central line or IVAD, may access for administration according to line specific nursing protocol.Once exam is complete flush line and de-access according to line specific nursing protocol in the MR contrast administration guidelines link - ascorbic acid, vitamin C, (VITAMIN C) 500 mg tablet Take 500 mg by mouth once daily. - magnesium oxide (MAG-OX) 400 mg (241.3 mg magnesium) tablet Take 400 mg by mouth once daily. - cholecalciferol (VITAMIN D-3) 2,000 unit tablet Take 2,000 Units by mouth once daily. - cyanocobalamin (VITAMIN B-12) 100 mcg tab Take 1,000 mcg by mouth once daily. - carvedilol (COREG) 12.5 mg tablet Take 12.5 mg by mouth twice daily with meals. - rivaroxaban (XARELTO) 20 mg tablet Take 20 mg by mouth daily with dinner. - tamsulosin ER (FLOMAX) 0.4 mg cap Take 0.4 mg by mouth once daily. Problem List As Of Date 06/23/2020 Noted Resolved Atrial fibrillation, persistent (HCC) [I48.19] Essential hypertension [I10] Obstructive sleep apnea syndrome [G47.33] 04/02/2019 Class 1 obesity due to excess calories in adult*04/02/2019 SOB (shortness of breath) [R06.02] 04/02/2019 Right rotator cuff tear arthropathy [M75.101, M*04/23/2019 Sensorineural hearing loss, bilateral [H90.3] 08/09/2019 Encounter Status:Closed by CADY SHERMAN on 06/19/21 Normal [facility] Vital Signs Date Time Vital Sign Value Performing Clinician Faci lity 06-11-2025 11:19-0400 Body height 177.8 cm Nilam Betancourt MD Work Phone: [facility] 06-11-2025 11:19-0400 Body mass index (BMI) [Ratio] 30.19 kg/m2 Nilam Betancourt MD Work Phone: [facility] 06-11-2025 11:19-040 Body weight 95.44 kg Nilam Betancourt MD Work Phone: [facility] 06-11-2025 11:19-0400 Diastolic blood pressure 82 mm[Hg] Nilam Betancourt MD Work Phone: [facility] 06-11-2025 11:19-0400 Heart rate 104 /min Nilam Betancourt MD Work Phone: [facility] 06-11-2025 11:19-0400 Respiratory rate 18 /min Nilam Betancourt MD Work Phone: [facility] 06-11-2025 11:19-0400 SaO2% (BldA) [Mass fraction] 97 % Nilam Betancourt MD Work Phone: [facility] 06-11-2025 11:19-0400 Systolic blood pressure 136 mm[Hg] Nilam Betancourt MD Work Phone: [facility] 05-07-2025 09:11-0400 Body height 177.8 cm Pm 1 [facility] 05-07-2025 09:11-0400 Body mass index (BMI) [Ratio] 29.13 kg/m2 [facility] 1 [facility] 05-07-2025 09:11-0400 Body weight 92.08 kg Pmh 1 [facility] 03-12-2025 09:56-0400 Body height 177.8 cm Nilam Betancourt MD Work Phone: [facility] 03-12-2025 09:56-0400 Body mass index (BMI) [Ratio] 30.62 kg/m2 Nilam Betancourt MD Work Phone: [facility] 03-12-2025 09:56-0400 Body weight 96.8 kg Nilam Betancourt MD Work Phone: [facility] 03-12-2025 09:56-0400 Diastolic blood pressure 70 mm[Hg] Nilam Betancourt MD Work Phone: [facility] 03-12-2025 09:56-0400 Heart rate 80 /min Nilam Betancourt MD Work Phone: [facility] 03-12-2025 09:56-0400 Respiratory rate 18 /min Nilam eBtancourt MD Work Phone: [facility] 03-12-2025 09:56-0400 SaO2% (BldA) [Mass fraction] 97 % Nilam Betancourt MD Work Phone: [facility] 03-12-2025 09:56-0400 Systolic blood pressure 116 mm[Hg] Nilam Betancourt MD Work Phone: [facility] 12-20-2024 14:19-0500 Body height 177.8 cm Aldair Nicole MD Work Phone: [facility] 12-20-2024 14:19-0500 Body mass index (BMI) [Ratio] 31.14 kg/m2 Aldair Nicole MD Work Phone: [facility] 12-20-2024 14:19-0500 Body weight 98.43 kg Aldair Nicole MD Work Phone: [facility] 12-20-2024 14:19-0500 Diastolic blood pressure 90 mm[Hg] Aldair Nicole MD Work Phone: [facility] 12-20-2024 14:19-0500 Heart rate 54 /min Aldair Nicole MD Work Phone: [facility] 12-20-2024 14:19-0500 SaO2% (BldA) [Mass fraction] 97 % Aldair Nicole MD Work Phone: [facility] 12-20-2024 14:19-0500 Systolic blood pressure 136 mm[Hg] Aldair Nicole MD Work Phone: [facility] 12-10-2024 10:08-0500 Body height 177.8 cm Nilam Betancourt MD Work Phone: [facility] 12-10-2024 10:08-0500 Body mass index (BMI) [Ratio] 31.57 kg/m2 Nilam Betancourt MD Work Phone: [facility] 12-10-2024 10:08-0500 Body weight 99.79 kg Nilam Betancourt MD Work Phone: [facility] 12-10-2024 10:08-0500 Diastolic blood pressure 74 mm[Hg] Nilam Betancourt MD Work Phone: [facility] 12-10-2024 10:08-0500 Heart rate 76 /min Nilam Betancourt MD Work Phone: [facility] 12-10-2024 10:08-0500 Respiratory rate 18 /min Nilam Betancourt MD Work Phone: [facility] 12-10-2024 10:08-0500 SaO2% (BldA) [Mass fraction] 95 % Nilam Betancourt MD Work Phone: [facility] 12-10-2024 10:08-0500 Systolic blood pressure 136 mm[Hg] Nilam Betancourt MD Work Phone: [facility] 10-01-2024 17:27-0500 Body height 177.8 cm Ramila Brown OPERATIONS SYSTEMS SPECIALIST Work Phone: [facility] 10-01-2024 17:27-0500 Body mass index (BMI) [Ratio] 31.85 kg/m2 Ramila Brown OPERATIONS SYSTEMS SPECIALIST Work Phone: [facility] 10-01-2024 17:27-0500 Body weight 100.7 kg Ramila Brown OPERATIONS SYSTEMS SPECIALIST Work Phone: [facility] 10-01-2024 17:27-0500 Diastolic blood pressure 76 mm[Hg] Ramila Brown OPERATIONS SYSTEMS SPECIALIST Work Phone: [facility] 10-01-2024 17:27-0500 Heart rate 88 /min Ramila Brown OPERATIONS SYSTEMS SPECIALIST Work Phone: [facility] 10-01-2024 17:27-0500 Respiratory rate 18 /min Ramila Brown OPERATIONS SYSTEMS SPECIALIST Work Phone: [facility] 10-01-2024 17:27-0500 SaO2% (BldA) [Mass fraction] 94 % Ramila Brown OPERATIONS SYSTEMS SPECIALIST Work Phone: [facility] 10-01-2024 17:27-0500 Systolic blood pressure 128 mm[Hg] Ramila Brown OPERATIONS SYSTEMS SPECIALIST Work Phone: [facility] 08-20-2024 14:29-0400 Body height 177.8 cm Ramila Brown OPERATIONS SYSTEMS SPECIALIST Work Phone: [facility] 08-20-2024 14:29-0400 Body mass index (BMI) [Ratio] 32.86 kg/m2 Ramila Brown OPERATIONS SYSTEMS SPECIALIST Work Phone: [facility] 08-20-2024 14:29-0400 Body weight 103.87 kg Ramila Brown OPERATIONS SYSTEMS SPECIALIST Work Phone: [facility] 08-20-2024 14:29-0400 Diastolic blood pressure 76 mm[Hg] Ramila Brown OPERATIONS SYSTEMS SPECIALIST Work Phone: [facility] 08-20-2024 14:29-0400 Heart rate 72 /min Ramila Brown OPERATIONS SYSTEMS SPECIALIST Work Phone: [facility] 08-20-2024 14:29-0400 Respiratory rate 18 /min Ramila Brown OPERATIONS SYSTEMS SPECIALIST Work Phone: [facility] 08-20-2024 14:29-0400 SaO2% (BldA) [Mass fraction] 99 % Ramila Brown OPERATIONS SYSTEMS SPECIALIST Work Phone: [facility] 08-20-2024 14:29-0400 Systolic blood pressure 128 mm[Hg] Ramila Brown OPERATIONS SYSTEMS SPECIALIST Work Phone: [facility] 08-06-2024 18:50-0400 Body height 177.8 cm Ramila Brown OPERATIONS SYSTEMS SPECIALIST Work Phone: [facility] 08-06-2024 18:50-0400 Body mass index (BMI) [Ratio] 32.71 kg/m2 Ramila Brown OPERATIONS SYSTEMS SPECIALIST Work Phone: [facility] 08-06-2024 18:50-0400 Body weight 103.42 kg Ramila Brown OPERATIONS SYSTEMS SPECIALIST Work Phone: [facility] 08-06-2024 18:50-0400 Diastolic blood pressure 76 mm[Hg] Ramila Brown OPERATIONS SYSTEMS SPECIALIST Work Phone: [facility] 08-06-2024 18:50-0400 Heart rate 76 /min Ramila Brown OPERATIONS SYSTEMS SPECIALIST Work Phone: [facility] 08-06-2024 18:50-0400 Respiratory rate 18 /min Ramila Brown OPERATIONS SYSTEMS SPECIALIST Work Phone: [facility] 08-06-2024 18:50-0400 SaO2% (BldA) [Mass fraction] 99 % Ramila Brown OPERATIONS SYSTEMS SPECIALIST Work Phone: [facility] 08-06-2024 18:50-0400 Systolic blood pressure 130 mm[Hg] Ramila Brown OPERATIONS SYSTEMS SPECIALIST Work Phone: [facility] 07-26-2024 09:19-0400 Body height 177.8 cm Shaniqua Mary MD Work Phone: [facility] 07-26-2024 09:19-0400 Body mass index (BMI) [Ratio] 32.86 kg/m2 Shaniqua Mary MD Work Phone: [facility] 07-26-2024 09:19-0400 Body weight 103.87 kg hSaniqua Mary MD Work Phone: [facility] 07-26-2024 09:19-0400 Diastolic blood pressure 66 mm[Hg] Shaniqua Mary MD Work Phone: [facility] 07-26-2024 09:19-0400 Heart rate 72 /min Shaniqua Mary MD Work Phone: [facility] 07-26-2024 09:19-0400 SaO2% (BldA) [Mass fraction] 97 % Shaniqua Mary MD Work Phone: [facility] 07-26-2024 09:19-0400 Systolic blood pressure 106 mm[Hg] Shaniqua Mary MD Work Phone: [facility] 06-29-2024 08:46-0400 Blood Pressure Location Alfa GUAJARDO [facility] 06-29-2024 08:46-0400 Body temperature 98.6 [degF] Alfa GUAJARDO [facility] 06-29-2024 08:46-0400 Diastolic blood pressure 64 mm[Hg] Alfa GUAJARDO [facility] 06-29-2024 08:46-0400 Heart rate 68 /min Alfa GUAJARDO [facility] 06-29-2024 08:46-0400 Respiratory rate 16 /min Alfa GUAJARDO [facility] 06-29-2024 08:46-0400 Systolic blood pressure 111 mm[Hg] Alfa GUAJARDO [facility] 11-24-2023 14:31-0500 Body height 177.8 cm Aldair Nicole MD Work Phone: [facility] 11-24-2023 14:31-0500 Body mass index (BMI) [Ratio] 32.86 kg/m2 Aldair Nicole MD Work Phone: [facility] 11-24-2023 14:31-0500 Body weight 103.87 kg Aldair Nicole MD Work Phone: [facility] 11-24-2023 14:31-0500 Diastolic blood pressure 80 mm[Hg] Aldair Nicole MD Work Phone: [facility] 11-24-2023 14:31-0500 Heart rate 87 /min Aldair Nicole MD Work Phone: [facility] 11-24-2023 14:31-0500 SaO2% (BldA) [Mass fraction] 95 % Aldair Nicole MD Work Phone: [facility] 11-24-2023 14:31-0500 Systolic blood pressure 142 mm[Hg] Aldair Nicole MD Work Phone: [facility] 06-27-2023 08:48-0400 Blood Pressure Location Alfa GUAJARDO [facility] 06-27-2023 08:48-0400 Diastolic blood pressure 74 mm[Hg] Alfa GUAJARDO [facility] 06-27-2023 08:48-0400 Heart rate 68 /min Alfa GUAJARDO [facility] 06-27-2023 08:48-0400 Respiratory rate 16 /min Alfa GUAJARDO [facility] 06-27-2023 08:48-0400 Systolic blood pressure 132 mm[Hg] Alfa GUAJARDO [facility] 07-05-2022 10:10-0400 Blood Pressure Location Alfa GUAJARDO [facility] 07-05-2022 10:10-0400 Diastolic blood pressure 87 mm[Hg] Alfa GUAJARDO [facility] 07-05-2022 10:10-0400 Heart rate 67 /min Alfa GUAJARDO [facility] 07-05-2022 10:10-0400 Respiratory rate 16 /min Alfa GUAJARDO [facility] 07-05-2022 10:10-0400 Systolic blood pressure 121 mm[Hg] Alfa GUAJARDO [facility] Encounters Encounter Date Encounter Type Care Provider Facility Start: 06-28-2025 ambulatory Alfa GUAJARDO Facili ty:[facility] Start: 06-24-2025 End: 06-24-2025 Bamboo flowsheet Fabian MCKEON Work Phone: [facility] Start: 06-24-2025 End: 06-24-2025 Bamboo flowsheet Fabian MCKEON Work Phone: [facility] Start: 06-24-2025 End: 06-24-2025 Office outpatient new 30 minutes Fabian MCKEON Work Phone: [facility] Comment on above: Acute pain of left s houlder; Rotator cuff arthropathy, left Start: 06-24-2025 End: 06-24-2025 ambulatory FABIAN QUINONEZ Not Available Start: 06-18-2025 End: 06-18-2025 Evaluation and management of inpatient EVER WELCH [facility] Start: 06-14-2025 End: 06-14-2025 Telephone encounter Mateo Salazar MD Work Phone: [facility] Start: 06-11-2025 End: 06-11-2025 Bamboo flowsheet Nilam Betancourt MD Work Phone: [facility] Start: 06-11-2025 End: 06-11-2025 Bamboo flowsheet Nilam Betancourt MD Work Phone: [facility] Start: 06-11-2025 End: 06-11-2025 Office outpatient visit 25 minutes Nilam Betancourt MD Work Phone: [facility] Comment on above: Rotator cuff arthrop athy, left (Primary Dx); Obesity (BMI 30-39.9); Bilateral hand numbness; Arm weakness; Numbness; Arm pain, right; Arm pain, left Start: 06-11-2025 End: 06-11-2025 Refill Nilam Betancourt MD Work Phone: [facility] Comment on above: Obesity (BMI 30-39.9 ) Start: 05-28-2025 End: 05-28-2025 Evaluation and management of inpatient EVER WELCH [facility] Start: 05-07-2025 End: 05-07-2025 Patient encounter procedure [facility] Pre-Admission Testing 1 [facility] - Pre Admit Comment on above: Preop examination (P rimary Dx); Hypertension, unspecified type; Permanent atrial fibrillation ([facility]-HCC) Start: 05-07-2025 End: 05-07-2025 Preprocedural examination done Pm 1 [facility] Start: 05-07-2025 End: 05-07-2025 ambulatory PACO CAPUTO [facility] Start: 05-07-2025 Encounter for other preprocedural examination NILAM JONESER [facility] Start: 04-15-2025 ambulatory NILAM BETANCOURT [facility] Start: 03-19-2025 ambulatory NILAM BETANCOURT [facility] Start: 03-12-2025 End: 03-12-2025 Bamboo flowsheet Nilam Betancourt MD Work Phone: [facility] Start: 03-12-2025 End: 03-12-2025 Bamboo flowsheet Nilam Betancourt MD Work Phone: [facility] Start: 03-12-2025 End: 03-12-2025 Patient encounter procedure Nilam Betancourt MD Work Phone: [facility] Comment on above: Routine general medi salvatore examination at a health care facility (Primary Dx); Benign essential hypertension (CMS/HCC); Atrial fibrillation, persistent (HCC) (CMS/HCC); Mixed hyperlipidemia (CMS/HCC); Obstructive sleep apnea syndrome; Obesity (BMI 30-39.9); Encounter for screening for malignant neoplasm of colon; Left leg pain; Gait disturbance Start: 03-12-2025 End: 03-12-2025 Patient encounter status Nilam Betancourt MD Work Phone: [facility] Start: 03-12-2025 End: 03-12-2025 ambulatory NILAM Hinojosa SERAFIN Not Available Start: 12-25-2024 End: 12-25-2024 Refill Rachel Graham LPN [facility] Comment on above: Med Refill Start: 12-20-2024 End: 12-20-2024 Office outpatient visit 15 minutes Aldair Nicole MD Work Phone: [facility] Comment on above: Permanent atrial fib rillation (CMS-HCC) (Primary Dx); Benign essential hypertension; Dyspnea on exertion; Mixed hyperlipidemia; Paroxysmal atrial fibrillation (CMS-HCC) Start: 12-20-2024 End: 12-20-2024 ambulatory ALDAIR NICOLE [facility] Start: 12-19-2024 End: 12-19-2024 Telephone encounter [facility] Start: 12-10-2024 End: 12-10-2024 Bamboo flowsheet Nilam Betancourt MD Work Phone: [facility] Start: 12-10-2024 End: 12-10-2024 Bamboo flowsheet Nilam Betancourt MD Work Phone: [facility] Start: 12-10-2024 End: 12-10-2024 Office outpatient visit 25 minutes Nilam Betancourt MD Work Phone: [facility] Comment on above: Benign essential hyp ertension (CMS/HCC) (Primary Dx); Atrial fibrillation, persistent (HCC) (CMS/HCC); Mixed hyperlipidemia (CMS/HCC); Mixed conductive and sensorineural hearing loss of left ear, unspecified hearing status on contralateral side; Involuntary movements; Neuropathy; Pulmonary fibrosis, unspecified (CMS/HCC) Start: 12-10-2024 End: 12-10-2024 ambulatory NILAM BETANCOURT Not Available Start: 11-25-2024 End: 11-26-2024 Refill Aldair Nicole MD Work Phone: [facility] Comment on above: Med Refill Start: 10-18-2024 End: 10-18-2024 Refill Nilam Betancourt MD Work Phone: [facility] Comment on above: Benign essential hyp ertension (CMS/HCC) Start: 10-01-2024 End: 10-01-2024 Office outpatient visit 15 minutes Ramila Brown OPERATIONS SYSTEMS SPECIALIST Work Phone: [facility] Comment on above: Class 1 obesity due to excess calories without serious comorbidity with body mass index (BMI) of 32.0 to 32.9 in adult (Primary Dx) Start: 10-01-2024 End: 10-01-2024 ambulatory RAMILA BROWN Not Available Start: 10-01-2024 End: 10-01-2024 Bamboo flowsheet Ramila Brown OPERATIONS SYSTEMS SPECIALIST Work Phone: [facility] Start: 10-01-2024 End: 10-01-2024 Bamboo flowsheet Ramila Brown OPERATIONS SYSTEMS SPECIALIST Work Phone: [facility] Start: 08-20-2024 End: 08-20-2024 Office outpatient visit 25 minutes Ramila Brown OPERATIONS SYSTEMS SPECIALIST Work Phone: [facility] Comment on above: Muscle spasm (Primar y Dx); Obstructive sleep apnea syndrome; Constipation by delayed colonic transit; Obesity (BMI 30-39.9) Start: 08-20-2024 End: 08-20-2024 ambulatory RAMILA BROWN Not Available Start: 08-20-2024 End: 08-20-2024 Bamboo flowsheet Ramila Brown OPERATIONS SYSTEMS SPECIALIST Work Phone: [facility] Start: 08-20-2024 End: 08-20-2024 Bamboo flowsheet Ramila Brown OPERATIONS SYSTEMS SPECIALIST Work Phone: [facility] Start: 08-10-2024 End: 08-10-2024 Orders Only Ramila Brown OPERATIONS SYSTEMS SPECIALIST Work Phone: [facility] Comment on above: Muscle spasm (Primar y Dx) Start: 08-09-2024 End: 08-09-2024 Telephone encounter Nilam Betancourt MD Work Phone: [facility] Start: 08-06-2024 End: 08-06-2024 Office outpatient visit 15 minutes Ramila Brown OPERATIONS SYSTEMS SPECIALIST Work Phone: [facility] Comment on above: Muscle spasm (Primar y Dx) Start: 08-06-2024 End: 08-06-2024 ambulatory RAMILA BROWN Not Available Start: 08-06-2024 End: 08-06-2024 Telephone encounter Nilam Betancourt MD Work Phone: [facility] Start: 08-01-2024 End: 08-01-2024 ambulatory NILAM BETANCOURT Not Available Start: 08-01-2024 End: 08-01-2024 Patient encounter procedure [facility] Comment on above: Sensorineural hearin g loss (SNHL) of both ears (Primary Dx) Start: 07-27-2024 End: 07-27-2024 Telephone encounter Sonali Odell MA [facility] Start: 07-26-2024 End: 07-26-2024 Isi Mary MD Work Phone: [facility] Start: 07-26-2024 End: 07-26-2024 Isi Mary MD Work Phone: [facility] Start: 07-26-2024 End: 07-26-2024 ambulatory SHANIQUA MARY Not Available Start: 07-26-2024 End: 07-26-2024 Office outpatient visit 25 minutes Shaniqua aMry MD Work Phone: [facility] Comment on above: Nephrolithiasis (Gabriella nilam Dx); Flank pain Start: 07-26-2024 End: 07-26-2024 ambulatory SHANIQUA MARY Not Available Start: 07-25-2024 End: 07-25-2024 Telephone encounter Nilam Betancourt MD Work Phone: [facility] Comment on above: Sleep Study Start: 07-21-2024 End: 07-22-2024 Emergency department patient visit [facility] Start: 06-29-2024 End: 06-29-2024 ambulatory Alfa GUAJARDO Facility:[facility] Start: 06-29-2024 End: 06-29-2024 Patient encounter procedure Alfa GUAJARDO [facility] Start: 06-12-2024 End: 06-12-2024 ambulatory MD Nilam Betancourt Work Phone: [facility] Work Phone: Start: 06-12-2024 End: 06-12-2024 Patient encounter procedure MD Nilam Betancourt Work Phone: [facility] Work Phone: Start: 06-11-2024 End: 06-11-2024 Patient encounter procedure MD Nilam Betancourt Work Phone: [facility] [place] Work Phone: Start: 06-11-2024 End: 06-11-2024 ambulatory MD Nilam Betancourt Work Phone: [facility] Work Phone: Start: 11-24-2023 End: 11-24-2023 Office outpatient visit 15 minutes Aldair Nicole MD Work Phone: [facility] Comment on above: Paroxysmal atrial fi brillation (CMS-HCC) (Primary Dx); Chronic atrial fibrillation (CMS-HCC); Benign essential hypertension; Mixed hyperlipidemia; Permanent atrial fibrillation (CMS-HCC) Start: 11-23-2023 Telephone encounter Shaniqua Galicia [facility] Start: 06-27-2023 End: 06-27-2023 Patient encounter procedure Alfa GUAJARDO [facility] Start: 10-18-2022 End: 10-19-[address] JOSELIN SPEARS Facility: Start: 07-05-2022 End: 07-05-2022 Patient encounter procedure Alfa GUAJARDO [facility] Procedures Date Procedure Procedure Detail Performing Clinician Start: 06-24-2025 Arthrocentesis aspir &/inj major jt/bursa w/o us Fabian MCKEON Work Phone: Start: 06-24-2025 Radex shoulder compl ete minimum 2 views Fabian MCKEON Work Phone: Start: 12-20-2024 Follow-up visit Follow-up ALDAIR NICOLE Start: 08-27-2024 Colonoscopy Nilam Betancourt MD Work Phone: Start: 07-26-2024 Urnls dip stick/tabl et rgnt non-auto w/o micrscp Shaniqua Mary MD Work Phone: Start: 07-26-2024 Comprehensive metabo lic panel Shaniqua Mary MD Work Phone: Start: 06-11-2024 X-ray of cervical spine MD Nilam Betancourt Work Phone: Start: 11-24-2023 Ecg routine ecg w/le ast 12 lds w/i&r Aldair Nicole MD Work Phone: Start: 07-19-2019 Bladder stone analysis Alfa GUAJARDO Start: 07-19-2019 Transurethral prostatectomy Alfa GUAJARDO Start: 11-30-2018 Transrectal biopsy o f prostate using ultrasound guidance Alfa GUAJARDO Start: 11-02-2018 Transrectal biopsy o f prostate using ultrasound guidance Alfa GUAJARDO Cardiac ablation usi ng fluoroscopy guidance Alfa GUAJARDO Colonoscopy Alfa GUAJARDO Repair of musculoten dinous cuff of shoulder Alfa GUAJARDO Vasectomy Alfa GUAJARDO Plan of Treatment Date Care Activity Detail Author Start: 08-27-2034 Screening for malign ant neoplasm of colon [facility] Start: 06-03-2031 DTaP,Tdap and Td Vaccines (3 - Td or Tdap) DTaP,Tdap and Td Vaccines (3 - Td or Tdap) [facility] Start: 05-07-2026 Adult BMI Screening Adult BMI Screen ing [facility] Start: 05-07-2026 Tobacco Screening Tobacco Screening [facility] Start: 12-20-2025 Adult BMI Screening Adult BMI Screen ing [facility] Start: 12-20-2025 Tobacco Screening Tobacco Screening [facility] Start: 10-22-2025 End: 10-22-2025 Patient encounter procedure 10/22/2025 9:00 AM EST Office Visit [facility] [address] [place] [address] Fabian Quinonez, LINDA [address] [place] [address] [facility] Start: 09-11-2025 End: 09-11-2025 Patient encounter procedure 09/11/2025 9:40 AM EDT Office Visit [facility] [address] [place] [address] Nilam Betancourt MD [address] [place], [place] [id number] [facility] Start: 08-14-2025 Screening for malign ant neoplasm of colon [facility] Start: 07-21-2025 Adult BMI Screening Adult BMI Screen ing [facility] Start: 07-15-2025 Influenza vaccination [facility] Start: 06-29-2025 End: 06-29-2025 Patient encounter procedure 06/29/2025 12:00 PM EDT Procedure Visit [facility] [address] [place] [address] Mateo Salazar MD [address] [facility] [address] [address] [facility] Start: 06-24-2025 End: 06-24-2025 Patient encounter procedure 06/24/2025 1:00 PM EDT Office Visit [facility] [address] [place] [address] Fabian Quinonez, PA [address] [place] [address] Acute pain of left shoulder; Rotator cuff arthropathy, left [facility] Comment on above: Acute pain of left s houlder; Rotator cuff arthropathy, left Start: 06-18-2025 End: 06-18-2025 Admission to same day surgery center 06/18/2025 12:45 PM EDT - 06/18/2025 1:30 PM EDT Surgery [facility] Surgery [address] [place] [address] Ever Welch MD [address] [place] [address] EXTRACTION CATARACT INTRAOCULAR LENS [facility] Surgery Comment on above: EXTRACTION CATARACT INTRAOCULAR LENS Start: 06-18-2025 End: 06-18-2025 EXTRACTION CATARACT INTRAOCULAR LENS EXTRACTION CATARACT INTRAOCULAR LENS Cataract left eye 06/18/2025 12:45 PM EDT [facility] Start: 06-18-2025 Subsequent hospital visit by physician 06/18/2025 12:45 PM EDT Hospital Encounter [facility] Surgery [address] [place] [address] Ever Welch MD [address] [place] [address] [facility] Start: 06-17-2025 End: 06-17-2025 ambulatory 06/17/2025 4:20 PM EDT Support Visit [facility] Admit [address] [place] [address] [facility] - Pre Admit Start: 06-11-2025 End: 06-11-2026 EMG AND NERVE CONDUCTION STUDY EMG AND NERVE CONDUCTION STUDY Neurology Routine Bilateral hand numbness Arm weakness Numbness Arm pain, right Arm pain, left Expected: 06/11/2025 (Approximate), Expires: 06/11/2026 [facility] Work Phone: Comment on above: Expected: 06/11/2025 (Approximate), Expires: 06/11/2026 Start: 06-11-2025 End: 06-11-2025 Patient encounter procedure [facility] Comment on above: Arrived Start: 05-28-2025 End: 05-28-2025 Admission to same day surgery center 05/28/2025 9:00 AM EDT - 05/28/2025 9:45 AM EDT Surgery [facility] Surgery [address] [place] [address] Ever Welch MD [address] [place] [address] EXTRACTION CATARACT INTRAOCULAR LENS [facility] Comment on above: EXTRACTION CATARACT INTRAOCULAR LENS Start: 05-28-2025 End: 05-28-2025 Anesthesia consultation 05/28/2025 9:00 AM EDT Anesthesia Event [facility] [address] [place] [phone] Liborio Sampson, DO [address] [facility], [place] [id number] [facility] Start: 05-28-2025 End: 05-28-2025 EXTRACTION CATARACT INTRAOCULAR LENS EXTRACTION CATARACT INTRAOCULAR LENS Cataract right eye 05/28/2025 9:00 AM EDT [facility] Start: 05-28-2025 Subsequent hospital visit by physician 05/28/2025 9:00 AM EDT Hospital Encounter [facility] [address] [place] [phone] Ever Welch MD [address] [place] [address] [facility] Start: 03-28-2025 Medicare Annual Well ness (AWV) Medicare Annual Wellness (AWV) [facility] Start: 03-12-2025 End: 03-12-2025 Patient encounter procedure [facility] Comment on above: Arrived Start: 12-20-2024 End: 12-20-2024 Patient encounter procedure 12/20/2024 2:45 PM EST Office Visit [facility] [address] [phone] Aldair Nicole MD [address] [place] [address] [facility] Start: 12-10-2024 End: 12-10-2025 Cobalamin (Vitamin B12) [Mass/volume] in Serum or Plasma Vitamin B12 Lab Routine Neuropathy Expected: 12/10/2024 (Approximate), Expires: 12/10/2025 [facility] Work Phone: Comment on above: Expected: 12/10/2024 (Approximate), Expires: 12/10/2025 Start: 12-10-2024 End: 12-10-2024 Patient encounter procedure [facility] Comment on above: Arrived Start: 11-24-2024 Adult BMI Screening Adult BMI Screen ing [facility] Start: 11-24-2024 Tobacco Screening Tobacco Screening [facility] Start: 11-21-2024 End: 11-21-2024 Patient encounter procedure 11/21/2024 8:30 AM EST Office Visit [facility] [address] [place] [phone] Ramila Brown NP [address] [place] [address] [facility] Start: 10-01-2024 End: 10-01-2024 Patient encounter procedure 10/01/2024 5:30 PM EST Office Visit [facility] [address] [place] [phone] Ramila Brown NP [address] [place] [address] Arrived [facility] Comment on above: Arrived Start: 08-20-2024 End: 08-20-2024 Patient encounter procedure [facility] Comment on above: Arrived Start: 08-12-2024 Screening for malign ant neoplasm of colon [facility] Start: 08-01-2024 End: 08-01-2024 Patient encounter procedure 08/01/2024 1:00 PM EDT Office Visit [facility] [address] [place] [phone] [facility] Start: 07-26-2024 End: 07-26-2024 Patient encounter procedure 07/26/2024 9:30 AM EDT Office Visit [facility] [address] [place] [phone] Shaniqua Mary MD [address] [place] [address] Arrived [facility] Comment on above: Arrived Start: 07-15-2024 COVID-19 Vaccine ( season) COVID-19 Vaccine () [facility] Start: 07-15-2024 Influenza vaccination [facility] Start: 07-01-2024 Tobacco Screening Tobacco Screening [facility] Start: 05-26-2024 Adult BMI Screening Adult BMI Screen ing [facility] Start: 11-24-2023 End: 11-24-2023 Patient encounter procedure 11/24/2023 2:30 PM EST Office Visit [facility] [address] [place] [address] Aldair Nicole MD [address] [place] [address] [facility] Start: 07-15-2023 COVID-19 Vaccine ( season) COVID-19 Vaccine ( season) [facility] Start: 2015 Fall Risk Screening Fall Risk Screen ing [facility] Start: 2000 Administration of varicella zoster vaccine Zoster (Shingles) Vaccine (1 of 2) [facility] Start: 1968 Adult BMI Follow Up Plan Adult BMI Follow Up Plan [facility] Start: 1962 Depression Screening Depression Scre ening [facility] Start: 1950 Medicare Annual Well ness Visit Medicare Annual Wellness Visit [facility] Start: 1950 Screening for malign ant neoplasm of colon [facility] Immunizations Immunization Date Immunization Notes Care Provider Fa cility 08-20-2024 influenza, high dose seasonal, preservative-free Ramila Brown NP Work Phone: [facility] 08-20-2024 influenza virus vacc ine, unspecified formulation Pmh 1 [facility] 08-17-2023 influenza, high dose seasonal, preservative-free Nilam Betancourt MD Work Phone: [facility] 08-17-2023 influenza virus vacc ine, unspecified formulation Nilam Betancourt MD Work Phone: [facility] 10-14-2022 SARS-CoV-2 (COVID-19 ) [id number] Alfa GUAJARDO [facility] 08-10-2022 influenza virus vacc ine, unspecified formulation Alfa GUAJARDO [facility] 08-10-2022 Influenza, High-dose Seasonal, Quadrivalent, Preservative Free Nilam Betancourt MD Work Phone: [facility] 10-27-2021 SARS-CoV-2 (COVID-19 ) mRNA-1273 vaccine Alfa GUAJARDO [facility] Comment on above: Result Comment: 2022: [id number] 08-04-2021 influenza virus vacc ine, unspecified formulation Alfa GUAJARDO [facility] 08-04-2021 Influenza, High-dose Seasonal, Quadrivalent, Preservative Free Nilam Betancourt MD Work Phone: [facility] 06-03-2021 tetanus toxoid, redu eliazar diphtheria toxoid, and acellular pertussis vaccine, adsorbed Alfa GUAJARDO [facility] 02-12-2021 SARS-CoV-2 (COVID-19 ) mRNA-1273 vaccine Alfa GUAJARDO [facility] Comment on above: Result Comment: 2022: [id number] 01-15-2021 SARS-CoV-2 (COVID-19 ) mRNA-1273 vaccine Alfa GUAJARDO [facility] Comment on above: Result Comment: 2022: [id number] 01-12-2021 SARS-CoV-2 (COVID-19 ) mRNA-1273 vaccine Alfa GUAJARDO [facility] 07-22-2020 influenza virus vacc ine, unspecified formulation Alfagianfranco GUAJARDO [facility] 07-22-2020 influenza, high dose seasonal, preservative-free Nilam Betancourt MD Work Phone: [facility] 07-25-2019 influenza virus vacc ine, unspecified formulation Alfa GUAJARDO [facility] 07-25-2019 influenza, high dose seasonal, preservative-free Nilam Betancourt MD Work Phone: [facility] 04-11-2019 pneumococcal polysaccharide vaccine, 23 valent Alfa GUAJARDO [facility] 08-16-2018 influenza virus vacc ine, unspecified formulation Alfa GUAJARDO [facility] 08-16-2018 influenza, high dose seasonal, preservative-free Nilam Betancourt MD Work Phone: [facility] 08-18-2017 influenza virus vacc ine, unspecified formulation Alfa GUAJARDO [facility] 08-18-2017 influenza, injectabl e, quadrivalent, contains preservative Nilam Betancourt MD Work Phone: [facility] 12-10-2015 influenza virus vacc ine, unspecified formulation Alfa GUAJARDO [facility] 12-10-2015 influenza, high dose seasonal, preservative-free Nilam Betancourt MD Work Phone: [facility] 12-10-2015 pneumococcal conjuga te vaccine, 13 valent Alfa GUAJARDO [facility] 08-02-2014 influenza virus vacc ine, unspecified formulation Alfa CASANDRA [facility] 08-02-2014 influenza, seasonal, injectable, preservative free Nilam Betancourt MD Work Phone: [facility] 05-28-2014 tetanus toxoid, redu eliazar diphtheria toxoid, and acellular pertussis vaccine, adsorbed Alfa GUAJARDO [facility] 10-04-2013 influenza virus vacc ine, unspecified formulation Alfa CASANDRA [facility] 10-04-2013 influenza, seasonal, injectable Nilam Betancourt MD Work Phone: [facility] 09-02-2010 influenza, whole Alfa OSPINA [facility] Payers Date Payer Category Payer Self-pay 2022 Medicare [id number] 2022 Medicare (Managed Care) DOMINIK LEAHY Member Subscriber Plan / Payer (Effective 2022-Present) Name: Sheri Loyola Relation to Subscriber: Self Name: Sheri Loyola Payer ID: Not on file Group ID: [id number] Type: Not on file Address: [address] [place] [id number] 2022 Medicare HMO [employer] MED[employer] Member Subscriber Plan / Payer (Effective 2022-Present) Name: Sheri Loyola Relation to Subscriber: Self Name: Melvi Sheri Palafox Payer ID: [id number] (NAIC) Group ID: [id number] Type: Not on file Address: [address] [place] [id number] 2022 Medicare [id number] 1959 Medicare [id number] 1959 Unknown [id number] 1950 Unknown [id number] 2.16840.1.455262.3.579.2. 593 1950 Unknown [id number] 2.16840.1.165318.3.579.2. 727 1950 Unknown [id number] 2.16840.1.695912.3.579.2. 727 1950 Unknown [id number] 2.16840.1.979067.3.579.2. 1286 1950 Unknown [id number] 2.16.840.1.550342.3.579.2. 1286 1950 Unknown [id number] 2.16.840.1.738176.3.579.2. 1286 1950 Unknown [id number] 2.16840.1.713707.3.579.2. 1286 1950 Unknown [id number] 2.16.840.1.541335.3.579.2. 1286 1950 Unknown [id number] 2.16.840.1.049434.3.579.2. 1286 1950 Unknown [id number] 2.16.840.1.346935.3.579.2. 1286 1950 Unknown [id number] 2.16.840.1.391082.3.579.2. 1286 1950 Unknown [id number] 2.16.840.1.460971.3.579.2. 1286 1950 Unknown [id number] 2.16.840.1.094004.3.579.2. 1259 1950 Unknown [id number] 2.16.840.1.520667.3.579.2. 1259 1950 Unknown [id number] 2.16.840.1.352765.3.579.2. 1259 1950 Unknown [id number] 2.16.840.1.788676.3.579.2. 1259 1950 Unknown [id number] 2.16.840.1.396271.3.579.2. 1259 1950 Unknown [id number] 2.16.840.1.378160.3.579.2. 1259 1950 Unknown [id number] 2.16.840.1.653155.3.579.2. 1259 1950 Unknown [id number] 2.16.840.1.709761.3.579.2. 1259 1950 Unknown [id number] 2.16.840.1.125550.3.579.2. 1259 1950 Unknown [id number] 2.16.840.1.133884.3.579.2. 1259 1950 Unknown [id number] 2.16.840.1.381106.3.579.2. 1259 1950 Unknown [id number] 2.16.840.1.463430.3.579.2. 1259 Unknown [id number] 2.16.840.1.655741.3.579.2. 531 Social History Date Type Detail Facility Start: 06-22-2021 End: 04-08-2023 Tobacco smoking status Never smoked tobacco (finding) [facility] Tobacco smoking status Never [facility] Start: 04-19-2023 End: 03-12-2025 Sex Assigned At Male [facility] Start: 1950 Sex Assigned At Male F [facility] Start: 09-02-2022 End: 04-08-2023 Tobacco use and exposure Smokeless tobacco non-user [facility] Start: 08-06-2024 End: 06-24-2025 Alcoholic beverage intake Current drinker of alcohol (finding) [facility] Start: 08-06-2024 End: 03-12-2025 Alcoholic beverage intake [facility] How often to you hav e a drink containing alcohol? 2-3 time sa week [facility] How many standard drinks containing alcohol do you have on a typical day? 3 or 4 [facility] How often do you hav e 6 or more drinks on 1 occasion? Less than monthly [facility] Start: 05-12-2023 Alcohol Comment caffeine: 1-2 cups per day [facility] Start: 1950 Sex assigned at Not on file [facility] Start: 01-26-2023 Gender identity Identifies as male gender (finding) [facility] Start: 08-08-2019 Alcohol Comment [facility] Start: 06-19-2015 Sex Male (finding) [facility] Medical Equipment Procedure Code Equipment Code Equipment Origin al Text Equipment Identifier Dates Incv/Brandon 4 .75 Use [id number] - [id number] - [id number] Start: 10-20-2020 Goals Date Patient Goal Desired Activity /State Personal health goal Comment on above: Formatting of this n ote might be different from the original. Evaluation of progress towards goal: Safe dc transition from hospital to home with family support. Personal health goal Personal health goal Functional Status Date Assessment Result Facility 03-12-2025 Patient Health Quest ionnaire 2 item (PHQ-2) [Reported] [facility] 06-29-2024 Functional Status N/A [facility] 06-27-2023 Functional Status N/A [facility] 07-05-2022 Functional Status N/A [facility] Clinical Notes 07-05-2022 to 06-24-2025 LINDA Stauffer - 06/24/2025 1:00 PM EDTTelephone Encounter - Eusebio Denis - 06/14/2025 3:20 PM EDTTelephone Encounter - Eusebio Denis - 06/14/2025 3:20 PM EDTPatient Instructions Note Date & Type Note Facility 06-24-2025 History of Present illness Narrative Associated Order(s): L Inj/Asp: L subacromial bursa Post-Procedure Diagnose(s): Rotator cuff arthropathy, left Images from the original note were not included. Orthopedic Office note: NAME: Sheri Loyola : 1950 (NEW PT) (DR. BETANCOURT REFERRAL) - WORSENING B/L SHOULDER DISCOMFORT (L>R) / LIMITED ROM ~1 MONTH (~05/2025) ; NKI XRAY TODAY, 06/24/25 IN EPIC XRAY 07/27/2020 @[facility] 09/16/2020 IN [facility] EMG B/L UE EMG (DR. BETANCOURT) ORDERED B/L DISCOMFORT - L>R. DIFFUSE DISCOMFORT - CAN RADIATE TO ELBOW - WORSE WITH USE. ADMITS HAND NUMBNESS. DENIES SWELLING. LIMITED ROM WITH ELEVATION. DENIES STIFFNESS. DIFFICULTY WITH BELT. DENIES WAKING HS. ADMITS WEAKNESS. CANNOT SLEEP ON (L) SIDE. NO PAIN MEDS. DENIES ICING / HEATING. NO TOPICALS. HX (L) ROTATOR CUFF REPAIR 2013 HX (R) ROTATOR CUFF REPAIR 2019 ON XARELTO Shoulder Musculoskeletal Exam Inspection Left Left shoulder inspection is normal. Ecchymosis: none Peripheral edema: none Atrophy: none Masses: none Prior incision: anterolateral Prior incision comment: AC joint and anterior shoulder Incision: well-healed Palpation Left Crepitus: no crepitus Increased warmth: none Tenderness: present Anterior shoulder: mild AC joint: mild Rotator cuff: mild Proximal biceps: none Distal biceps: none Lateral arm: mild Elbow: none Range of Motion Right Right shoulder active abduction: + pain passing 90 degrees. Left Left shoulder range of motion is normal. Active ROM: pain. Passive ROM: pain. Active forward elevation: 160. Passive forward elevation: 170. Shoulder active abduction: 160. Passive abduction: 160. Active external rotation at side: 80. Passive external rotation at side: 80. Internal rotation: L5. Strength Left External rotation: 4/5. External rotation is affected by pain. Internal rotation: 5/5. Abduction: 4-/5. Abduction is affected by pain. Biceps: 5/5. Triceps: 5/5. Neurovascular Left Radial pulse: normal and 2+ Capillary refill: <3 sec Axillary nerve sensory distribution: normal Scapula Left Left shoulder scapula is normal. Position: normal Winging: none Special Tests Left Rotator Cuff Signs Neer's test: positive Montgomery test: positive Painful arc test: positive Biceps/melinda Signs Speed's test: negative General Constitutional: appears stated age Neurological: alert and oriented x3 Orders Placed This Encounter Procedures L Inj/Asp This order was created via procedure documentation XR shoulder 2+ views left Reason for exam:: Pain L Inj/Asp: L subacromial bursa on 06/24/2025 1:27 PM Indications: pain Details: 21 G needle, posterior approach Medications: 40 mg methylPREDNISolone acetate 40 MG/ML; 1 mL bupivacaine PF 0.5 % Outcome: tolerated well, no immediate complications Utilizing aseptic technique with universal precautions . Pt given injection Left Shoulder SA space ( code [id number] LT) Procedure, treatment alternatives, risks and benefits explained, specific risks discussed. Consent was given by the patient. Patient was prepped and draped in the usual sterile fashion. 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 Acute pain of left shoulder M25.512 XR shoulder 2+ views left 2. Rotator cuff arthropathy, left M12.812 Ambulatory referral to Orthopaedic Surgery Assessment & Plan Left shoulder pain Symptoms are exacerbated with certain activities. A subacromial injection has been recommended for pain management. Home exercises have been discussed to maintain shoulder mobility. Both surgical and nonsurgical treatment options were reviewed. If symptoms persist or worsen, an intra-articular injection may be considered. The patient is agreeable and had no further concerns or questions. Treatment plan: A subacromial injection has been recommended for pain management. Home exercises have been discussed to maintain shoulder mobility. Clinical decision making: Both surgical and nonsurgical treatment options were reviewed. If symptoms persist or worsen, an intra-articular injection may be considered. Left rotator cuff arthropathy A previous MRI from 4 years ago shows a large rotator cuff tear. He has had two surgeries on the shoulder. X-rays were reviewed, and a stabilized granuloma in the left midlung area was noted on today's shoulder x-ray. Follow-up: The patient will follow up in 4 months. Questions answered in laymen terms at the bedside. The diagnosis, home exercise plan and any ongoing restrictions/ recommendations reviewed. If unable to be reached in office, I recommend evaluation at nearest Emergency Room if any symptoms worsened or new symptoms develop for requiring urgent evaluation. Visit was preformed using [facility] speech recognition. documented in this encounter [facility] 06-14-2025 Telephone encounter Note Patient scheduled BUE on 06/29/25--No annual deductible--35.00 co-pay due at visit--patient is aware to bring 35.00 to visit [facility] 06-14-2025 Miscellaneous Notes Patient scheduled BUE on 06/29/25--No annual deductible--35.00 co-pay due at visit--patient is aware to bring 35.00 to visit documented in this encounter [facility] 06-11-2025 Telephone encounter Note Approvals with refills [facility] 06-11-2025 Miscellaneous Notes Approvals with refills documented in this encounter [facility] 06-11-2025 Telephone encounter Note Approvals with refills [facility] 06-11-2025 Miscellaneous Notes Approvals with refills documented in this encounter [facility] 06-11-2025 History of Present illness Narrative Images from the original note were not included. Subjective Patient ID: Sheri Loyola is a 74 y.o. male who presents for Follow-up. HPI History of Present Illness The patient presents for weight loss, sleep apnea, shoulder pain, neck stiffness, and hand numbness. He has been experiencing weight loss, which he attributes to his medication regimen. He is currently on Wegovy 1.7 mg but does not find it as effective as previous medications. His goal was to reach 200 pounds by 05/17/2025, and a week later, he weighed 199 pounds. Overall, he has lost approximately 20 pounds. He had to temporarily discontinue his medication due to cataract surgery and plans to resume it after his upcoming surgery next week. He has been using a CPAP machine intermittently for the past 6 months. He typically goes to bed around 10:30 or 11:00 PM and his wakes him up around 2:00 AM when she hears him snoring. He was informed that the mask needs to be replaced monthly, but he has not yet done so. He received a message about shipping the new mask but is waiting to discuss it with his doctor. He recalls that the machine did not function well during a trip to [place] in their camper in 08/2024. He has undergone surgery on both shoulders but is now experiencing difficulty lifting his left arm. He has noticed that the pain extends down his arm and is unable to lift anything above chest level. He has previously consulted with Dr. Joaquin, who has since retired. He also reports a stiff neck, which occasionally limits his ability to turn his head, particularly to the right side. He has been trying to alleviate the stiffness through exercises. He was scheduled for surgery with Dr. Pete but missed the appointment and had to reschedule. He subsequently saw Dr. 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 He experiences occasional leg cramps, which he believes originate from his back. He has had an MRI of his neck and an EMG test in the past. He also reports intermittent numbness in his hands, which he suspects is related to his spinal cord issue. Sleep: He typically goes to bed around 10:30 or 11:00 PM. PAST SURGICAL HISTORY: - Cataract surgery - Shoulder surgeries on both shoulders Objective BP 136/82 (BP Location: Right arm, Patient Position: Sitting, BP Cuff Size: Large adult) Pulse 104 Resp 18 Ht 5' 10 Wt 210 lb 6.4 oz SpO2 97% BMI 30.19 kg/m Physical Exam Physical Exam Respiratory: Clear to auscultation, no wheezing, rales or rhonchi Cardiovascular: Regular rate and rhythm, no murmurs, rubs, or gallops Musculoskeletal: Left shoulder exhibits pain upon elevation, fair rom . Tenderness of rotator cuff Assessment & Plan Obesity (BMI 30-39.9) Orders: Semaglutide-Weight Management 2.4 MG/0.75ML solution auto-injector; Inject 2.4 mg under the skin every 7 (seven) days Rotator cuff arthropathy, left Orders: Ambulatory referral to Orthopaedic Surgery; Future Bilateral hand numbness Orders: EMG AND NERVE CONDUCTION STUDY; Future Arm weakness Orders: EMG AND NERVE CONDUCTION STUDY; Future Numbness Orders: EMG AND NERVE CONDUCTION STUDY; Future Arm pain, right Orders: EMG AND NERVE CONDUCTION STUDY; Future Arm pain, left Orders: EMG AND NERVE CONDUCTION STUDY; Future Assessment & Plan 1. Weight management. - Weight loss has been steady, with a total loss of 20 pounds and 3 pounds since the last visit. - Physical exam findings indicate a healthier weight, with a current weight of 199 pounds. - Discussion included the effectiveness of Wegovy and the decision to increase the dosage. - Wegovy dosage increased from 1.7 mg to 2.4 mg; prescription sent to pharmacy. 2. Sleep apnea. - Patient has been inconsistent with CPAP machine usage. - Importance of regular replacement of CPAP components emphasized. - Review of records indicated last replacement was in 08/2024. - Advised to replace CPAP components regularly to prevent atrial fibrillation and ensure optimal function. 3. Shoulder pain. - Difficulty lifting left arm, possibly rotator cuff tendinitis - Physical exam findings show some improvement in arm mobility. - Referral to Dr. Velasco's office for further evaluation and potential physical therapy. 4. Neck stiffness. - Stiffness in the neck, particularly on the right side, with occasional leg cramps. - Review of records indicated previous MRI and need for EMG test. - Referral to neurologist for EMG test to evaluate cervical spine issues. - EMG test to determine if surgical intervention would be beneficial. Follow-up: Next scheduled visit in 3 months. documented in this encounter [facility] 05-07-2025 Instructions Renetta Griffni RN - 05/07/2025 9:00 AM EDT Preoperative Education Checklist- General Surgery date: 05/28/25 Surgery time: 9a Arrival time: 7a 1. Bring a photo ID and your insurance card with you the day of surgery. You will check in at the main lobby of the [facility]- registration desk is straight ahead as soon as you walk in. Tell them you are here for surgery. 2. If you have a Living Will/Durable Power of Glued Wood Tester for Health Care that is not on file here, please bring a copy the day of surgery. 3. Please shower/bathe the night before surgery with the provided soap or wipes. Do not shower the morning of surgery- you will do use wipes when you arrive here at the hospital before getting into your surgical gown. Do not shave the area of your procedure for 2 days prior to your surgery. 4. NO powder, lotion, perfume/cologne, aftershave, make-up, deodorant, or hair products after you have bathed. 5. NO nail mosotho/acrylic on at least one finger. If you are having a hand, wrist or foot surgery then all nail mosotho and artificial/acrylic nails must be removed from that hand or foot. 6. Avoid ALL Aspirin and non-steroidal anti-inflammatory drugs and certain vitamins (Ibuprofen, Advil, Aleve, Excedrin, Meloxicam, Celebrex, fish/krill oil, etc.) for 7 days prior to surgery as instructed by your surgeon and/or your prescribing doctor. Tylenol IS ALLOWED. If you are on Ticlid, Xarelto, Eliquis, Pradaxa, Plavix or Coumadin, please check with your prescribing doctor for instructions for when to stop them. 7. If you use an inhaler, continue to use it routinely. 8. Nothing to eat or drink (not even water, gum, mints, or hard candy!) AFTER midnight prior to your surgery. 9. Take only medications that you are instructed to on the morning of surgery with a TINY SIP OF WATER. 10. Choose a responsible adult that will be able to drive you home when you are discharged from your hospital stay for your surgery and can stay with you in your home for 24 hours after your procedure. You must NOT drive any vehicle or operate any machinery for 24 hours after surgery. 11. When you dress for your appointment, please wear loose fitting clothing that is appropriate to accommodate your surgical area procedure. BRING WITH YOU ANY DEVICES YOU MAY NEED: MARY hose, ice machine, sling/swath, brace or special shoe, oversized zip-up or button up shirt, CPAP machine if staying overnight. 12. Do NOT wear jewelry, watches, or any piercings or metal for surgery- leave these valuables and money at home. 13. Do NOT wear contact lenses for surgery- glasses are okay if needed. 14. The anesthesiologist will talk with you the day of surgery and will ask you to sign a Consent Form. 15. Refrain from smoking or any type of tobacco use for at least 8 hours and marijuana for 24 hours prior to arrival for your surgery. 16. Notify your surgeon if you develop any illness before your surgery. 17. If you are staying overnight, please DO NOT BRING your home medications with you. 18. If you have any questions prior to surgery, please call the Pread[facility] Testing office at [phone], Mon.-Fri. 7 a.m.-3 p.m. Leave a voicemail if needed. Pre-Surgery Instructions: Medication Instructions ascorbic acid, vitamin C, (VITAMIN C) 1000 mg tablet Continue as prescribed, DO NOT take morning of procedure atorvastatin (LIPITOR) 20 mg tablet Continue as prescribed, DO NOT take morning of procedure carvediloL (COREG) 12.5 mg tablet Continue as prescribed, take morning of procedure cholecalciferol, vitamin D3, 2,000 units capsule Continue as prescribed, DO NOT take morning of procedure cyanocobalamin 1000 MCG tablet Continue as prescribed, DO NOT take morning of procedure dilTIAZem CD (CARDIZEM CD) 180 mg 24 hr capsule Continue as prescribed, take morning of procedure hydroCHLOROthiazide (HYDRODIURIL) 25 mg tablet Continue as prescribed, DO NOT take morning of procedure MAGNESIUM OXIDE ORAL Continue as prescribed, DO NOT take morning of procedure rivaroxaban (XARELTO) 20 mg tablet tablet Continue as prescribed, DO NOT take morning of procedure semaglutide, weight loss, (WEGOVY) 1.7 mg/0.75 mL pen injector Stop taking 1 week prior to procedure vit C/E/zinc ox/rose/lut/zeax (ICAPS AREDS2 ORAL) Continue as prescribed, DO NOT take morning of procedure documented in this encounter [facility] 03-12-2025 History of Present illness Narrative Images from the original note were not included. Sheri Loyola is a 74 y.o. male presents with chief complaint of Medicare Annual Wellness Visit Subsequent HPI: HPI Over the past 2 weeks, how often have you been bothered by any of the following problems? Little interest or pleasure in doing things: Not at all Feeling down, depressed, or hopeless: Not at all Patient Health Questionnaire-2 Score: 0 Donaldson Fall Risk History of Falling, Immediate or Within 3 Months: No Secondary Diagnosis: No Ambulatory Aid: Walks without aid/bedrest/nurse assist Intravenous Therapy/Heparin Lock: No Gait/Transferring: Normal/bedrest/immobile Mental Status: Oriented to own ability Anika Fall Risk Score: 0 Health Risk Assessment Form Do you need help eating, bathing, using the toilet, dressing, or getting around your home?: No Can you prepare your own meals?: Yes Can you do your own housework without help?: Yes Can you shop for groceries or clothes without help?: Yes Do you exercise for about 20 minutes 3 or more days a week?: Yes How confident are you that you can control and manage most of your health problems?: Very confident Can you mange your money, credit cards and accounts, pay bills and taxes?: Yes Vision Screening: Yes, no gross abnormalities Hearing Screening: Yes, no gross abnormalities Cognitive Screening Self Assessment: No overt cognitive deficiency is apparent by direct observation Three Word Registration: Village, Kitchen, Baby Clock Drawing: Partial Clock - 1 Three Word Recall: All 3 words correct - 3 Total Score (0-5 Points): 5 Pain Assessment Pain Score: 0 - No pain History of Present Illness The patient presents for evaluation of sleep apnea, weight management, elevated cardiovascular risk, and balance issues. Respiratory function is reported as satisfactory with no complaints of chest pain. He is currently utilizing a sleep machine, which he initially used consistently for the first month. However, usage has decreased to approximately 3 hours per night, and he is uncertain about the required duration of use. No significant changes have been observed since starting the machine. His chief operations officer, whom he last consulted in 12/2024, recommended the use of the sleep machine due to a noted decrease in oxygen levels. The CPAP pressure is not perceived as excessive following his weight loss. Semaglutide is currently being taken, but minimal effect is reported. Initially, weight loss of a few pounds per week was experienced, but this has plateaued despite improved dietary habits. The last semaglutide injection was administered a week ago, resulting in temporary indigestion but no other noticeable effects. A similar experience occurred when starting on a low dose of semaglutide, which was subsequently increased without achieving the initial effect. Approximately 20 pounds have been lost, but he still considers himself overweight. Difficulty walking has been experienced, initially attempted to alleviate by increasing physical activity, but this exacerbated the issue. Discomfort is primarily localized to the left hip and leg, with intermittent episodes of nerve-like pain over the weekend, attributed to a possible pinched nerve. This pain was severe enough to prevent sleeping in bed, necessitating the use of a recliner. Concerns about potential neuropathy or Parkinson's disease have been expressed. Occasional numbness in the hands is reported, which is less severe than previously noted. No weakness in the left leg is experienced, but a lack of control over both legs is reported. A long-standing history of drop foot in the right leg is noted. Difficulty navigating stairs and requiring support when dressing due to balance issues are reported. Leg presses and ankle exercises have been performed to maintain strength, but their effectiveness is uncertain. A nerve study was conducted 2 to 3 years ago, but the results are not recalled. Previously scheduled back surgery was postponed due to spontaneous resolution of pain. Injections for pain management have been received in the past. No cholesterol medication has been prescribed, and no previous recommendations for such treatment are recalled. Cataracts are present, with one scheduled for removal in 05/2025 and the other in 06/2025. A urologist has been consulted, with an appointment scheduled for 06/2025. It was noted that once he reaches his mid-70s, treating cancer is not as easy as treating other conditions. PSA levels seem to be elevated but do not result in cancer. SUBJECTIVE: MEDICATIONS: Current Outpatient Medications Medication Instructions acetaminophen (TYLENOL) 325 mg, Every 8 hours PRN Ascorbic Acid (vitamin C) 1000 MG tablet Orally B Complex Vitamins (VITAMIN B COMPLEX 100 IJ) Orally Cartia XT 180 MG 24 hr capsule 1 capsule, Every 24 hours carvedilol (COREG) 12.5 mg, Oral, Every 12 hours cetirizine (ZYRTEC) 10 mg, Oral, Daily hydroCHLOROthiazide (HYDRODIURIL) 25 mg, Oral, Daily magnesium oxide 400 MG capsule Every 24 hours Multiple Vitamins-Minerals (PRESERVISION AREDS PO) 1 tablet, Daily rivaroxaban (Xarelto) 20 MG tablet TAKE 1 TABLET DAILY WITH EVENING MEAL SEMAGLUTIDE, 1 MG/DOSE, SC Inject under the skin 0.6mg ALLERGIES: Allergies Allergen Reactions Sulfamethoxazole-Trimethoprim Rash SURGICAL HISTORY: Past Surgical History: Procedure Laterality Date CARDIOLITE STRESS [address] ANGIOGRAM HEART CORONARY 11/24/2020 CT ANGIOGRAM TAVR 11/24/2020 LUMBAR SPINE SURGERY 2016 spur removal L2-4 LUMBAR SPINE SURGERY 07/2019 spur removal L2 - L4 OTHER SURGICAL HISTORY 2010 bypass tract ablation (afib) PROSTATE SURGERY 2019 ROTATOR CUFF REPAIR Right 2014 ROTATOR CUFF REPAIR Left 2020 ULNAR NERVE REPAIR Right 09/2014 FAMILY HISTORY: Family History Problem Relation Name Age of Onset Febrile seizures Mother Hypertension Father SOCIAL HISTORY: Social History Tobacco Use Smoking status: Never Smokeless tobacco: Never Substance Use Topics Alcohol use: Yes Alcohol/week: 5.0 standard drinks of alcohol Types: 5 Standard drinks or equivalent per week Comment: caffeine: 1-2 cups per day Drug use: Never Depression: Not at risk (03/12/2025) PHQ-2 PHQ-2 Score: 0 REVIEW OF SYMPTOMS: Review of Systems OBJECTIVE: Visit Vitals BP 116/70 (BP Location: Right arm, Patient Position: Sitting, BP Cuff Size: Large adult) Pulse 80 Resp 18 Ht 5' 10 Wt 213 lb 6.4 oz SpO2 97% BMI 30.62 kg/m Smoking Status Never BSA 2.19 m Physical Exam Constitutional: Appearance: He is normal weight. HENT: Head: Normocephalic and atraumatic. Nose: Nose normal. No congestion. Mouth/Throat: Mouth: Mucous membranes are moist. Eyes: Extraocular Movements: Extraocular movements intact. Pupils: Pupils are equal, round, and reactive to light. Cardiovascular: Rate and Rhythm: Normal rate. Rhythm irregular. Pulmonary: Effort: Pulmonary effort is normal. No respiratory distress. Breath sounds: Normal breath sounds. No wheezing. Musculoskeletal: General: No swelling or deformity. Cervical back: Normal range of motion and neck supple. Right lower leg: No edema. Left lower leg: No edema. Skin: General: Skin is warm and dry. Findings: No rash. Neurological: General: No focal deficit present. Mental Status: He is alert and oriented to person, place, and time. Cranial Nerves: No cranial nerve deficit. Gait: Gait normal. Comments: Involuntary movement of feet Psychiatric: Mood and Affect: Mood normal. Behavior: Behavior normal. ASSESSMENT AND PLAN: Assessment/Plan Problem List Items Addressed This Visit Benign essential hypertension (CMS/HCC) stable Atrial fibrillation, persistent (HCC) (CMS/HCC) Managed by caridology Hyperlipidemia (CMS/HCC) Relevant Medications atorvastatin (Lipitor) 20 MG tablet Obstructive sleep apnea syndrome Reviewed importance of treatment Other Visit Diagnoses Routine general medical examination at a health care facility - Primary Obesity (BMI 30-39.9) Relevant Medications Semaglutide-Weight Management (Wegovy) 1.7 MG/0.75ML solution auto-injector Encounter for screening for malignant neoplasm of colon Left leg pain Relevant Orders Ambulatory referral to Physical Therapy Gait disturbance Relevant Orders Ambulatory referral to Physical Therapy As of your medicare wellness visit , the medical team reviewed your chart and chronic problems and treatment. Your information regarding healthy diet, activity, immunizations, depression screening, advance directives , activities of daily living medications, cognitive screening and risk factors for disease were reviewed or addressed Assessment & Plan 1. Sleep Apnea. - Importance of using the sleep machine to prevent nocturnal oxygen desaturation, which could lead to cardiac stress and potentially dangerous arrhythmias, was emphasized. - Insurance coverage for the machine is contingent upon demonstrating compliance with its use. - No paperwork from the medical supply company was found; patient mentioned the company can monitor usage. - Documentation in the chart regarding usage and compliance will be made. 2. Weight Management. - Experienced a weight loss of 7 pounds since 11/2024. - Current policy permitting the prescription of compounded semaglutide expires this month. - Presented with two options: continue with semaglutide through a functional medicine provider or order it directly from the relief driller at a cost of $500 per month. - Dosage of Wegovy will be increased to 1.7 mg for a month, and if tolerated well, it will be further increased to 2 mg. 3. Elevated Cardiovascular Risk. - Cardiovascular risk score indicates a 23% probability of developing cardiovascular disease over the next decade, including myocardial infarction or stroke. - Typically, a risk score exceeding 8% warrants the initiation of cholesterol-lowering medication. - Recommended to go on a low dose of Lipitor. - Patient agreed to start the medication. 4. Balance Issues. - Exhibits good sensation in feet despite the presence of foot drop. - EMG revealed nerve compression in the lower back. - Symptoms attributed to spinal arthritis causing intermittent nerve compression. - Referral to physical therapy will be made to address balance issues and leg weakness. - X-ray of the spine will be ordered to assess the extent of arthritis. - Consideration of a nerve test on the legs for further evaluation. Follow-up The patient will follow up in 3 months. documented in this encounter [facility] 12-20-2024 History of Present illness Narrative Sheri Loyola Date of visit: 12/20/2024 Date of : 1950 Age: 74 y.o. Patient Active Problem List Diagnosis Obstructive sleep apnea Family history of ischemic heart disease and other diseases of the circulatory system Deep vein thrombosis (DVT) ([facility]) Benign essential hypertension Hyperlipidemia Permanent atrial fibrillation ([facility]) Bradycardia Dyspnea on exertion Chronic bilateral low back pain without sciatica Lumbar radiculopathy Cervical radiculopathy at C8 Carpal tunnel syndrome of left wrist Neural foraminal stenosis of cervical spine Benign prostatic hyperplasia with urinary obstruction Benign prostatic hyperplasia Cardiomegaly Cervical spondylosis without myelopathy Class 1 obesity due to excess calories in adult Closed vertical fracture of right patella with delayed healing Daytime hypersomnia Enlarged RV (right ventricle) Full thickness rotator cuff tear Mixed conductive and sensorineural hearing loss of left ear Osteoarthritis Traumatic open wound of left lower leg Cellulitis Allergies Allergen Reactions Bactrim Ds [Sulfamethoxazole-Trimethoprim] Rash Current Outpatient Medications Medication Sig Dispense Refill ascorbic acid, vitamin C, 500 mg tablet,chewable daily. b complex vitamins tablet Take 1 tablet by mouth in the morning. cholecalciferol, vitamin D3, 2,000 units capsule Take 1 capsule (2,000 Units total) by mouth in the morning. cyanocobalamin 1000 MCG tablet Take 1 tablet (1,000 mcg total) by mouth in the morning. hydroCHLOROthiazide (HYDRODIURIL) 12.5 mg tablet Take 1 tablet (12.5 mg total) by mouth daily. 45 tablet 3 magnesium oxide (MAG-OX) 400 mg tablet Take 1 tablet (400 mg total) by mouth in the morning. rivaroxaban (XARELTO) 20 mg tablet tablet Take 1 tablet (20 mg total) by mouth once daily. 90 tablet 3 semaglutide 0.25 mg or 0.5 mg (2 mg/3 mL) pen injector Inject under the skin every 7 days. carvediloL (COREG) 12.5 mg tablet Take 1 tablet (12.5 mg total) by mouth in the morning and 1 tablet (12.5 mg total) in the evening. Take with meals. TAKE ONE TABLET BY MOUTH EVERY MORNING AND TAKE ONE TABLET BY MOUTH BEFORE BEDTIME. 180 tablet 3 dilTIAZem CD (CARDIZEM CD) 180 mg 24 hr capsule Take 1 capsule (180 mg total) by mouth in the morning. 90 capsule 3 No current facility-administered medications for this visit. 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 He is unaccompanied today CV TESTING HISTORY: ECHO: No results found. STRESS: No results found. HOLTER: No results found. CARDIAC CATH: No results found. CAROTID: No results found. CXR: No results found. Lipid Profile: No data recorded No data recorded No data recorded EKG: Past Medical History: Diagnosis Date Abnormal ECG Acute embolism and thrombosis of unspecified deep veins of unspecified lower extremity ([facility]) Acute low back pain Arthritis DVT (deep venous thrombosis) ([facility]) Family history of ischemic heart disease and other diseases of the circulatory system HL (hearing loss) bilateral Hyperlipemia Hypertension Kidney stones Obstructive sleep apnea no cpap Overweight Palpitations Permanent atrial fibrillation ([facility]) Solitary kidney Visual impairment glasses Past Surgical History: Procedure Laterality Date CARDIAC ELECTROPHYSIOLOGY STUDY AND ABLATION PROSTATE BIOPSY x2 REPAIR ROTATOR CUFF SHOULDER Left 10/20/2020 Performed by Jack Lu DO at [facility] SHOULDER SURGERY DR Pete 2015 Spurs removed SPINE SURGERY ULNAR NERVE REPAIR VASECTOMY Family History Problem Relation Age of Onset Heart disease Mother Back Problems Mother Cancer Father Parkinsonism Father Diabetes Maternal Grandmother Memory loss Paternal Grandmother Social History Socioeconomic History Marital status: Spouse name: Not on file Number of children: Not on file Years of education: Not on file Highest education level: Not on file Occupational History Not on file Tobacco Use Smoking status: Never Smokeless tobacco: Never Vaping Use Vaping status: Never Used Substance and Sexual Activity Alcohol use: Yes Alcohol/week: 4.0 standard drinks of alcohol Types: 4 Shots of liquor per week Comment: bourbon Drug use: No Sexual activity: Defer Comment: not addressed Other Topics Concern Caffeine Use Yes Social History Narrative Not on file Social Drivers of Health Financial Resource Strain: Not on file Food Insecurity: No Food Insecurity (12/20/2024) Hunger Screening Food Insecurity - Worry: Never True Food Insecurity - Inability: Never True Transportation Needs: Not on file Physical Activity: Not on file Stress: Not on file Social Connections: Not on file Interpersonal Safety: Not on file Housing Instability: Not on file Review of Systems Review of Systems Constitutional: Negative. HENT: Positive for hearing loss. Eyes: Negative. Cardiovascular: Negative. Vascular: Negative. Respiratory: Negative. Endocrine: Negative. Hematologic/Lymphatic: Negative. Skin: Negative. Musculoskeletal: Positive for muscle weakness. Gastrointestinal: Positive for constipation. Genitourinary: Negative. Neurological: Positive for numbness. Psychiatric/Behavioral: Negative. Allergic/Immunologic: Negative. CARDIOVASCULAR: Please review HPI. Physical Examination General appearance: Alert, oriented and cooperative. In no acute distress. Pleasant Skin: Warm and dry to touch. Respiratory: Clear to auscultation bilaterally, no use of accessory muscles. Cardiovascular: Variable S1 Musculoskeletal: No peripheral edema. VITAL SIGNS: BP 136/90 Pulse 54 Ht 177.8 cm (5' 10 ) Wt 98.4 kg (217 lb) SpO2 97% BMI 31.14 kg/m Orders Placed or Reconciled This Encounter Medications semaglutide 0.25 mg or 0.5 mg (2 mg/3 mL) pen injector Sig: Inject under the skin every 7 days. carvediloL (COREG) 12.5 mg tablet Sig: Take 1 tablet (12.5 mg total) by mouth in the morning and 1 tablet (12.5 mg total) in the evening. Take with meals. TAKE ONE TABLET BY MOUTH EVERY MORNING AND TAKE ONE TABLET BY MOUTH BEFORE BEDTIME. Dispense: 180 tablet Refill: 3 dilTIAZem CD (CARDIZEM CD) 180 mg 24 hr capsule Sig: Take 1 capsule (180 mg total) by mouth in the morning. Dispense: 90 capsule Refill: 3 Medications Discontinued During This Encounter Medication Reason dilTIAZem CD (CARDIZEM CD) 180 mg 24 hr capsule Reorder carvediloL (COREG) 12.5 mg tablet Reorder IMPRESSIONS/PLAN 1. Permanent atrial fibrillation (CMS-HCC) - dilTIAZem CD (CARDIZEM CD) 180 mg 24 hr capsule; Take 1 capsule (180 mg total) by mouth in the morning. Dispense: 90 capsule; Refill: 3 2. Benign essential hypertension - dilTIAZem CD (CARDIZEM CD) 180 mg 24 hr capsule; Take 1 capsule (180 mg total) by mouth in the morning. Dispense: 90 capsule; Refill: 3 3. Dyspnea on exertion 4. Mixed hyperlipidemia 5. Paroxysmal atrial fibrillation (CMS-HCC) - carvediloL (COREG) 12.5 mg tablet; Take 1 tablet (12.5 mg total) by mouth in the morning and 1 tablet (12.5 mg total) in the evening. Take with meals. TAKE ONE TABLET BY MOUTH EVERY MORNING AND TAKE ONE TABLET BY MOUTH BEFORE BEDTIME. Dispense: 180 tablet; Refill: 3 1. Chronic atrial fibrillation --history of atrial flutter ablation in 2010 --rate controlled -on Xarelto 2. Primary hypertension 3. History of DVT -on Xarelto 4. Solitary kidney 5. Low normal left ventricular systolic function on echocardiogram 11/2020 6. Low risk stress test 2018 7. Obstructive sleep apnea --just re diagnosed. Patient saw sleep Medicine this morning and will be restarting on a device 8. BMI greater than 30 --on compounded semaglutide with increase in dose to start today Blood pressure is minimally elevated. As patient will be treating his sleep apnea and continues to work on weight loss no changes to medication today. He will continue to monitor blood pressure Record blood pressure and heart rate 3 times per week. Call if systolic (top) number is consistently greater than 140 or less than 100 or diastolic (bottom) number is consistently greater than 90. Call if heart rate is consistently greater than 110 or less than 50. TODAYS ORDERS No orders of the defined types were placed in this encounter. FOLLOW UP Return in about 1 year (around 12/20/2025). PCP: Nilam Betancourt MD Referring Physician: Nilam Betancourt MD [address] [place] [address] [facility] Instructions Aldair Nicole MD - 12/20/2024 2:45 PM EST Record blood pressure and heart rate 3 times per week. Call if systolic (top) number is consistently greater than 140 or less than 100 or diastolic (bottom) number is consistently greater than 90. Call if heart rate is consistently greater than 110 or less than 50. [facility]-19-2024 Miscellaneous Notes Left message for patient to remind them to bring their most current medication list with them to their appointment. documented [facility]24 Telephone encounter Note Left message for patient to remind them to bring their most current medication list with them to their appointment. [facility] [employer] 12-10-2024 History of Present illness Narrative Images from the original note were not included. Sheri Loyola is a 74 y.o. male presents with chief complaint of Hypertension HPI: HPI History of Present Illness The patient presents for weight management, neuropathy, and health maintenance. He has been responding well to the compounded semaglutide 0.6 mg, with a noted improvement in his condition. However, he observed a deceleration in progress a few weeks prior to [place], which has since regained momentum. He reports a weight loss of 9 pounds, although he believes he has previously lost more weight. He also notes a significant change in his overall well-being, including the resolution of foot swelling. His dietary habits are healthy, with minimal consumption of alcohol and soda, and a preference for Gatorade Zero. He is requesting refills for Xarelto. He has an upcoming appointment with Cardiology next week. He recently underwent a colon cancer screening test, the results of which were communicated via email. He does not have a copy of the report at home. He continues to be on the same Medicare Advantage plan as the previous year. He reports no respiratory issues or chest pain. He has been experiencing worsening earaches and has hearing aids, which he reports are ineffective. He plans to schedule an appointment for a new pair of hearing aids this year. He has an appointment with the CPAP clinic next week and is working on getting everything back on track. He reports no excessive movement in his legs or feet, a symptom that has not been previously reported by others. He experiences numbness in his hands and can feel his lower legs upon waking in the morning. He has reduced the weight on his legs and feet at night by decreasing the number of blankets due to discomfort. He has been diagnosed with neuropathy and is currently on a regimen of B12 supplements, which he takes orally. SOCIAL HISTORY He does not drink much alcohol and does not drink much pop. FAMILY HISTORY His father had Parkinson's disease. MEDICATIONS Current: compounded semaglutide, Xarelto, B12 SUBJECTIVE: MEDICATIONS: Current Outpatient Medications Medication Instructions acetaminophen (TYLENOL) 325 mg, Every 8 hours PRN Ascorbic Acid (vitamin C) 1000 MG tablet Orally B Complex Vitamins (VITAMIN B COMPLEX 100 IJ) Orally Cartia XT 180 MG 24 hr capsule 1 capsule, Every 24 hours carvedilol (COREG) 12.5 mg, Oral, Every 12 hours cetirizine (ZYRTEC) 10 mg, Oral, Daily hydroCHLOROthiazide (HYDRODIURIL) 25 mg, Oral, Daily magnesium oxide 400 MG capsule Every 24 hours rivaroxaban (Xarelto) 20 MG tablet TAKE 1 TABLET DAILY WITH EVENING MEAL SEMAGLUTIDE, 1 MG/DOSE, SC Inject under the skin 0.6mg ALLERGIES: Allergies Allergen Reactions Sulfamethoxazole-Trimethoprim Rash SURGICAL HISTORY: Past Surgical History: Procedure Laterality Date CARDIOLITE STRESS [address] ANGIOGRAM HEART CORONARY 11/24/2020 CT ANGIOGRAM TAVR 11/24/2020 LUMBAR SPINE SURGERY 2016 spur removal L2-4 LUMBAR SPINE SURGERY 07/2019 spur removal L2 - L4 OTHER SURGICAL HISTORY 2010 bypass tract ablation (afib) PROSTATE SURGERY 2019 ROTATOR CUFF REPAIR Right 2013 ROTATOR CUFF REPAIR Left 2020 ULNAR NERVE REPAIR Right 09/2014 FAMILY HISTORY: Family History Problem Relation Name Age of Onset Febrile seizures Mother Hypertension Father SOCIAL HISTORY: Social History Tobacco Use Smoking status: Never Smokeless tobacco: Never Substance Use Topics Alcohol use: Yes Alcohol/week: 5.0 standard drinks of alcohol Types: 5 Standard drinks or equivalent per week Comment: caffeine: 1-2 cups per day Drug use: Never Depression: Not at risk (07/26/2024) PHQ-2 PHQ-2 Score: 0 REVIEW OF SYMPTOMS: Review of Systems OBJECTIVE: Visit Vitals BP 136/74 (BP Location: Left arm, Patient Position: Sitting, BP Cuff Size: Large adult) Pulse 76 Resp 18 Ht 5' 10 Wt 220 lb SpO2 95% BMI 31.57 kg/m Smoking Status Never BSA 2.22 m Physical Exam Constitutional: Appearance: He is normal weight. HENT: Head: Normocephalic and atraumatic. Nose: Nose normal. No congestion. Mouth/Throat: Mouth: Mucous membranes are moist. Eyes: Extraocular Movements: Extraocular movements intact. Pupils: Pupils are equal, round, and reactive to light. Cardiovascular: Rate and Rhythm: Normal rate and regular rhythm. Pulmonary: Effort: Pulmonary effort is normal. No respiratory distress. Breath sounds: Normal breath sounds. No wheezing. Musculoskeletal: General: No swelling or deformity. Cervical back: Normal range of motion and neck supple. Right lower leg: No edema. Left lower leg: No edema. Comments: Involuntary leg movements Skin: General: Skin is warm and dry. Findings: No rash. Neurological: General: No focal deficit present. Mental Status: He is alert and oriented to person, place, and time. Cranial Nerves: No cranial nerve deficit. Gait: Gait normal. Psychiatric: Mood and Affect: Mood normal. Behavior: Behavior normal. ASSESSMENT AND PLAN: Assessment/Plan Problem List Items Addressed This Visit Benign essential hypertension (CMS/HCC) - Primary Good control Atrial fibrillation, persistent (HCC) (CMS/HCC) stable Relevant Medications rivaroxaban (Xarelto) 20 MG tablet Hyperlipidemia (CMS/HCC) Unable to tolerate statin Mixed conductive and sensorineural hearing loss of left ear Other Visit Diagnoses Involuntary movements Consider parkinsons. Pt denies any dfficulties Neuropathy Relevant Orders Vitamin B12 Pulmonary fibrosis, unspecified (CMS/HCC) INCREASE SEMAGLUTIDE TO 1.2 MG Q WEEK Assessment & Plan 1. Weight management. His blood pressure readings are within the normal range. He has experienced a weight loss of 2 pounds since his last visit, with a current weight of 222 pounds. Increase semaglutide to 1.2. A prescription for Xarelto refill will be provided. 2. Neuropathy. He has not had a B12 level check in the past 5 years. His thyroid function was assessed last spring and found to be within normal limits. A B12 level test will be conducted to ensure the current dosage is appropriate. If the B12 level is found to be low, a switch to a sublingual B12 supplement will be considered. 3. Health maintenance. He is due for a colon cancer screening. He recently completed a test for his insurance company, but a copy has not been received. Efforts will be made to obtain a copy of the recent test results from his insurance company. Follow-up The patient will follow up in 3 months. documented in this encounter [facility] 11-25-2024 Miscellaneous Notes Upcoming appt 12/20/24 documented in this encounter [facility] 11-25-2024 Telephone encounter Note Upcoming appt 12/20/24 [facility] 10-18-2024 Telephone encounter Note Approvals with refills [facility] 10-18-2024 Miscellaneous Notes Approvals with refills Semaglutide to tracy fraser documented in this encounter [facility] 10-18-2024 Telephone encounter Note Semaglutide to tracy fraser [facility] 10-01-2024 History of Present illness Narrative Images from the original note were not included. Sheri Loyola is a 73 y.o. male presents with chief complaint of Weight Check HPI: Patient here for weight loss follow up. Has been doing well with compounded semaglutide with minimal side effects. Keeps his appetite in check SUBJECTIVE: MEDICATIONS: ALLERGIES Current Outpatient Medications Medication Instructions acetaminophen (TYLENOL) 325 mg, Every 8 hours PRN Ascorbic Acid (vitamin C) 1000 MG tablet Orally B Complex Vitamins (VITAMIN B COMPLEX 100 IJ) Orally Cartia XT 180 MG 24 hr capsule 1 capsule, Every 24 hours carvedilol (COREG) 12.5 mg, Oral, Every 12 hours cetirizine (ZYRTEC) 10 mg, Oral, Daily hydroCHLOROthiazide (HYDRODIURIL) 25 mg, Oral, Daily magnesium oxide 400 MG capsule Every 24 hours rivaroxaban (Xarelto) 20 MG tablet TAKE 1 TABLET DAILY WITH EVENING MEAL SEMAGLUTIDE, 1 MG/DOSE, SC Inject under the skin 0.6mg Allergies Allergen Reactions Sulfamethoxazole-Trimethoprim Rash PAST MEDICAL HISTORY: SOCIAL HISTORY SURGICAL HISTORY: Past Medical History: Diagnosis Date Atrial fibrillation (CMS/HCC) DVT (deep vein thrombosis) in Elevated PSA HTN (hypertension) (CMS/HCC) Kidney stone 07/2024 right side , kidney is horse shoe shapped Kidney stones Left wrist fracture RADHA (obstructive sleep apnea) Presence of implantable pulmonary artery pressure and heart rate monitoring system Progressive hearing loss of right ear Rotator cuff tear Sensorineural hearing loss (SNHL) of both ears Social History Tobacco Use Smoking status: Never Smokeless tobacco: Never Substance Use Topics Alcohol use: Yes Alcohol/week: 5.0 standard drinks of alcohol Types: 5 Standard drinks or equivalent per week Comment: caffeine: 1-2 cups per day Drug use: Never Past Surgical History: Procedure Laterality Date CARDIOLITE STRESS [address] ANGIOGRAM HEART CORONARY 11/24/2020 CT ANGIOGRAM TAVR 11/24/2020 LUMBAR SPINE SURGERY 2016 spur removal L2-4 LUMBAR SPINE SURGERY 07/2019 spur removal L2 - L4 OTHER SURGICAL HISTORY 2010 bypass tract ablation (afib) PROSTATE SURGERY 2019 ROTATOR CUFF REPAIR Right 2013 ROTATOR CUFF REPAIR Left 2019 ULNAR NERVE REPAIR Right 09/2014 REVIEW OF SYMPTOMS: Review of Systems Constitutional: Negative. HENT: Negative. Eyes: Negative. Respiratory: Negative. Cardiovascular: Negative. Gastrointestinal: Negative. Genitourinary: Negative. Musculoskeletal: Negative. Skin: Negative. Neurological: Negative. Psychiatric/Behavioral: Negative. All other systems reviewed and are negative. Hematological: Negative. Endocrine: Negative. Allergic/Immunologic: Negative. OBJECTIVE: There were no vitals filed for this visit. Physical Exam Vitals and nursing note reviewed. Constitutional: Appearance: Normal appearance. HENT: Head: Normocephalic and atraumatic. Eyes: Conjunctiva/sclera: Conjunctivae normal. Cardiovascular: Rate and Rhythm: Normal rate. Rhythm irregular. Pulses: Normal pulses. Heart sounds: Normal heart sounds. Pulmonary: Effort: Pulmonary effort is normal. Breath sounds: Normal breath sounds. Abdominal: General: Abdomen is flat. Palpations: Abdomen is soft. Musculoskeletal: General: Normal range of motion. Skin: General: Skin is warm and dry. Neurological: General: No focal deficit present. Mental Status: He is alert and oriented to person, place, and time. Psychiatric: Mood and Affect: Mood normal. ASSESSMENT AND PLAN: Assessment/Plan Diagnoses and all orders for this visit: Class 1 obesity due to excess calories without serious comorbidity with body mass index (BMI) of 32.0 to 32.9 in adult Doing with with healthy almost 2 pounds of weight loss per week . Continue healthy eating habits and will keep at his current dose. FU in 2 months No follow-ups on file. documented in this encounter [facility] 08-20-2024 History of Present illness Narrative Images from the original note were not included. Sheri Loyola is a 73 y.o. male presents with chief complaint of Spasms HPI: Patient here for follow up for Muscle Spasms, states the are a lot better now. SUBJECTIVE: MEDICATIONS: ALLERGIES Current Outpatient Medications Medication Instructions acetaminophen (TYLENOL) 325 mg, Oral, Every 8 hours PRN Ascorbic Acid (vitamin C) 1000 MG tablet Orally B Complex Vitamins (VITAMIN B COMPLEX 100 IJ) Orally baclofen (LIORESAL) 20 mg, Oral, 3 times daily Cartia XT 180 MG 24 hr capsule 1 capsule, Every 24 hours carvedilol (COREG) 12.5 mg, Oral, Every 12 hours cetirizine (ZYRTEC) 10 mg, Oral, Daily gabapentin (NEURONTIN) 100 mg, Oral, Nightly PRN hydroCHLOROthiazide (HYDRODIURIL) 25 mg, Oral, Daily magnesium oxide 400 MG capsule Every 24 hours polyethylene glycol (PEG) 3350 (MIRALAX) 17 g, Oral, Daily rivaroxaban (Xarelto) 20 MG tablet TAKE 1 TABLET DAILY WITH EVENING MEAL tiZANidine (ZANAFLEX) 4 mg, Oral, 2 times daily PRN Allergies Allergen Reactions Sulfamethoxazole-Trimethoprim Rash PAST MEDICAL HISTORY: SOCIAL HISTORY SURGICAL HISTORY: Past Medical History: Diagnosis Date Atrial fibrillation (CMS/HCC) DVT (deep vein thrombosis) in Elevated PSA HTN (hypertension) (CMS/HCC) Kidney stone 07/2024 right side , kidney is horse shoe shapped Kidney stones Left wrist fracture RADHA (obstructive sleep apnea) Presence of implantable pulmonary artery pressure and heart rate monitoring system Progressive hearing loss of right ear Rotator cuff tear Sensorineural hearing loss (SNHL) of both ears Social History Tobacco Use Smoking status: Never Smokeless tobacco: Never Substance Use Topics Alcohol use: Yes Alcohol/week: 5.0 standard drinks of alcohol Types: 5 Standard drinks or equivalent per week Comment: caffeine: 1-2 cups per day Drug use: Never Past Surgical History: Procedure Laterality Date CARDIOLITE STRESS [address] ANGIOGRAM HEART CORONARY 11/24/2020 CT ANGIOGRAM TAVR 11/24/2020 LUMBAR SPINE SURGERY 2016 spur removal L2-4 LUMBAR SPINE SURGERY 07/2019 spur removal L2 - L4 OTHER SURGICAL HISTORY 2010 bypass tract ablation (afib) PROSTATE SURGERY 2019 ROTATOR CUFF REPAIR Right 2013 ROTATOR CUFF REPAIR Left 2019 ULNAR NERVE REPAIR Right 09/2014 REVIEW OF SYMPTOMS: Review of Systems Constitutional: Negative. HENT: Negative. Eyes: Negative. Respiratory: Negative. Cardiovascular: Negative. Gastrointestinal: Negative. Genitourinary: Negative. Musculoskeletal: Negative. Skin: Negative. Neurological: Negative. Psychiatric/Behavioral: Negative. All other systems reviewed and are negative. Hematological: Negative. Endocrine: Negative. Allergic/Immunologic: Negative. OBJECTIVE: Vitals: 08/20/24 1429 BP: 128/76 Pulse: 72 Resp: 18 SpO2: 99% Physical Exam Vitals and nursing note reviewed. Constitutional: Appearance: Normal appearance. HENT: Head: Normocephalic and atraumatic. Eyes: Conjunctiva/sclera: Conjunctivae normal. Cardiovascular: Rate and Rhythm: Normal rate and regular rhythm. Pulmonary: Effort: Pulmonary effort is normal. Breath sounds: Normal breath sounds. Musculoskeletal: General: Normal range of motion. Cervical back: Normal range of motion and neck supple. Skin: General: Skin is warm and dry. Neurological: General: No focal deficit present. Mental Status: He is alert and oriented to person, place, and time. Psychiatric: Mood and Affect: Mood normal. ASSESSMENT AND PLAN: Assessment/Plan Diagnoses and all orders for this visit: Muscle spasm Improved but is very sensative to muscle relaxers. Makes him very sleepy Obstructive sleep apnea syndrome Is being set up with a new machine. Paper work in th process Constipation by delayed colonic transit Improved with meds Obesity (BMI 30-39.9) Continue to eliminate late night snacking and will start compounded semaglutide. FU in 4-6 weeks No follow-ups on file. documented in this encounter [facility] 08-09-2024 Telephone encounter Note Patient was seen on Tuesday evening and is calling with an update: he thought he was having kidney stones and you told him it was muscle spasms and prescribed baclofen. It has helped tremendously but he is going to stop taking it- he is having side effects- very sleepy, dizzy and just not feeling normal. Did you want to send in something else to [facility] in [place]? Please advise pt. Thank you. He was very thankful for the correct diagnosis- he said you hit the nail on the head [facility] 08-09-2024 Miscellaneous Notes Patient was seen on Tuesday evening and is calling with an update: he thought he was having kidney stones and you told him it was muscle spasms and prescribed baclofen. It has helped tremendously but he is going to stop taking it- he is having side effects- very sleepy, dizzy and just not feeling normal. Did you want to send in something else to [facility] in [place]? Please advise pt. Thank you. He was very thankful for the correct diagnosis- he said you hit the nail on the head documented in this encounter [facility] 08-06-2024 History of Present illness Narrative Images from the original note were not included. Sheri Loyola is a 73 y.o. male presents with chief complaint of No chief complaint on file. HPI: Patient here for Pain for Kidney Stone, that has been ongoing for awhile, Patient states he has having a lot of pain while laying down. He would also like to discuss recent imaging that he has had done. SUBJECTIVE: MEDICATIONS: ALLERGIES Current Outpatient Medications Medication Instructions acetaminophen (TYLENOL) 325 mg, Oral, Every 8 hours PRN Ascorbic Acid (vitamin C) 1000 MG tablet Orally B Complex Vitamins (VITAMIN B COMPLEX 100 IJ) Orally Cartia XT 180 MG 24 hr capsule 1 capsule, Every 24 hours carvedilol (COREG) 12.5 mg, Oral, Every 12 hours cetirizine (ZYRTEC) 10 mg, Oral, Daily gabapentin (NEURONTIN) 100 mg, Oral, Nightly PRN hydroCHLOROthiazide (HYDRODIURIL) 25 mg, Oral, Daily HYDROcodone-acetaminophen ([place]) 5-325 MG tablet 1 tablet, Oral, Every 6 hours PRN magnesium oxide 400 MG capsule Every 24 hours polyethylene glycol (PEG) 3350 (MIRALAX) 17 g, Oral, Daily rivaroxaban (Xarelto) 20 MG tablet TAKE 1 TABLET DAILY WITH EVENING MEAL Allergies Allergen Reactions Sulfamethoxazole-Trimethoprim Rash PAST MEDICAL HISTORY: SOCIAL HISTORY SURGICAL HISTORY: Past Medical History: Diagnosis Date Atrial fibrillation (CMS/HCC) DVT (deep vein thrombosis) in Elevated PSA HTN (hypertension) (CMS/HCC) Kidney stone 07/2024 right side , kidney is horse shoe shapped Kidney stones Left wrist fracture RADHA (obstructive sleep apnea) Presence of implantable pulmonary artery pressure and heart rate monitoring system Progressive hearing loss of right ear Rotator cuff tear Sensorineural hearing loss (SNHL) of both ears Social History Tobacco Use Smoking status: Never Smokeless tobacco: Never Substance Use Topics Alcohol use: Yes Alcohol/week: 5.0 standard drinks of alcohol Types: 5 Standard drinks or equivalent per week Comment: caffeine: 1-2 cups per day Drug use: Never Past Surgical History: Procedure Laterality Date CARDIOLITE STRESS [address] ANGIOGRAM HEART CORONARY 11/24/2020 CT ANGIOGRAM TAVR 11/24/2020 LUMBAR SPINE SURGERY 2016 spur removal L2-4 LUMBAR SPINE SURGERY 07/2019 spur removal L2 - L4 OTHER SURGICAL HISTORY 2010 bypass tract ablation (afib) PROSTATE SURGERY 2019 ROTATOR CUFF REPAIR Right 2014 ROTATOR CUFF REPAIR Left 2020 ULNAR NERVE REPAIR Right 09/2014 REVIEW OF SYMPTOMS: Review of Systems Constitutional: Negative. HENT: Negative. Eyes: Negative. Respiratory: Negative. Cardiovascular: Negative. Gastrointestinal: Negative. Genitourinary: Negative. Musculoskeletal: Positive for back pain. Skin: Negative. Neurological: Negative. Psychiatric/Behavioral: Negative. All other systems reviewed and are negative. Hematological: Negative. Endocrine: Negative. Allergic/Immunologic: Negative. OBJECTIVE: Vitals: 08/06/24 1850 BP: 130/76 Pulse: 76 Resp: 18 SpO2: 99% Physical Exam Vitals and nursing note reviewed. Constitutional: Appearance: Normal appearance. HENT: Head: Normocephalic and atraumatic. Eyes: Conjunctiva/sclera: Conjunctivae normal. Cardiovascular: Rate and Rhythm: Normal rate and regular rhythm. Pulmonary: Effort: Pulmonary effort is normal. Breath sounds: Normal breath sounds. Abdominal: General: Bowel sounds are normal. Palpations: Abdomen is soft. Musculoskeletal: General: Normal range of motion. Cervical back: Normal range of motion and neck supple. Comments: Right posterior lateral muscle spasm Skin: General: Skin is warm and dry. Neurological: General: No focal deficit present. Mental Status: He is alert and oriented to person, place, and time. Psychiatric: Mood and Affect: Mood normal. ASSESSMENT AND PLAN: Assessment/Plan Diagnoses and all orders for this visit: Muscle spasm - baclofen (Lioresal) 20 MG tablet; Take 1 tablet (20 mg) by mouth in the morning and 1 tablet (20 mg) in the evening and 1 tablet (20 mg) before bedtime. Feel that his pain is muscle spasms. It comes and goes like spasms. Will give baclofen to use. Call with update on and FU in 2 weeks. Imaging is unremarkable No follow-ups on file. documented in this encounter [facility] 08-06-2024 Telephone encounter Note Pt called today and left a vm at 9:43 am He's looking to get in today because he's been dealing with kidney stone problems for 3 weeks. He said he usually sees Ramila but has talked to Dr Betancourt about this problem before. I called pt back but had to leave a vm. I let him know that Dr Betancourt has some afternoon appts but may go fast. Asked him to call back to schedule :) [facility] 08-06-2024 Miscellaneous Notes Pt called today and left a vm at 9:43 am He's looking to get in today because he's been dealing with kidney stone problems for 3 weeks. He said he usually sees Ramila but has talked to Dr Betancourt about this problem before. I called pt back but had to leave a vm. I let him know that Dr Betancourt has some afternoon appts but may go fast. Asked him to call back to schedule :) documented in this encounter [facility] 08-01-2024 History of Present illness Narrative Patient was in today for a follow up on his hearing aids. Patient states that he heard the best he has ever heard with hearing aids after the last appointment. However he states that it did not last. I cleaned and checked the hearing aids. Listening check was good on the aids. I changed patient to a small power dome. I increased aids for speech. I again adjusted MPO. Patient was pleased. He was encouraged to call for a follow up if he continues to experience trouble with the hearing aids. Patient discussed his [place] Medicare benefit. He may pursue an updated audiogram and new hearing aids after the first of the year. If patient calls back for a follow up it would be best scheduled with valve seater operator. documented in this encounter [facility] 07-27-2024 Telephone encounter Note In pain this morning- a lot of pain on Rt side. And please call Hai and his Anihta marie (again). *Also asking what they can do for the pain . Is he just to wait it out ? Anything he can take for pain ? Would like a call today please .. [phone] ty [facility] 07-27-2024 Miscellaneous Notes In pain this morning- a lot of pain on Rt side. And please call Hai and his Anitha marie (again). *Also asking what they can do for the pain . Is he just to wait it out ? Anything he can take for pain ? Would like a call today please .. [phone] ty ----- Message from Dr. Shaniqua Mary sent at 07/26/2024 10:31 PM EDT ----- Labs are all ok. How is he feeling? documented in this encounter [facility] 07-27-2024 Telephone encounter Note ----- Message from Dr. Shaniqua Mary sent at 07/26/2024 10:31 PM EDT ----- Labs are all ok. How is he feeling? [facility] 07-26-2024 History of Present illness Narrative Images from the original note were not included. Sheri Loyola is a 73 y.o. male presents with chief complaint of Flank Pain (Went to [facility] on Tuesday due to lower back pain) HPI: HPI History of Present Illness The patient presents for evaluation of right-sided flank pain. He began experiencing intermittent right-sided flank pain about a week ago, initially attributing it to an awkward sleeping position. The pain progressively worsened until it became severe on Tuesday, prompting him to seek emergency care. A scan revealed a kidney stone, despite his initial suspicion of gallbladder issues. 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 Despite being prescribed pain medication, he was hesitant to take it due to past ineffective experiences. However, he eventually took the medication, and the pain subsided by Tuesday. His condition remained stable until yesterday when the pain returned and persisted throughout the night. He took a pain pill at 5:00 AM today, which provided some relief, but the pain has been constant since then. He rates his current pain level as 5 out of 10, describing it as a persistent pressure. He experienced constipation, which he believes was a side effect of the pain medication, but this issue has since resolved. He is aware of a hernia but was advised not to worry unless it affected his bowel movements. He reports no pain around the belly button or groin area. He did not check for fever but does not feel hot or sweaty. He also reports no chills. He felt nauseous a couple of times but did not vomit. He has consulted a urologist in the past for kidney stones, which first occurred when he was 30 years old. He had a routine checkup with the urologist last month without any symptoms. He usually consults Dr. Guajardo but has never seen him for kidney stones. He has also consulted Dr. Clark in the past. He has not noticed any correlation between food intake and his pain levels. He did not feel like eating today but did have supper last night. He does not experience shortness of breath but finds it difficult to breathe. However, deep breathing seems to alleviate this difficulty. SUBJECTIVE: MEDICATIONS: Current Outpatient Medications Medication Instructions acetaminophen (TYLENOL) 325 mg, Oral, Every 8 hours PRN Ascorbic Acid (vitamin C) 1000 MG tablet Orally B Complex Vitamins (VITAMIN B COMPLEX 100 IJ) Orally Cartia XT 180 MG 24 hr capsule 1 capsule, Every 24 hours carvedilol (COREG) 12.5 mg, Oral, Every 12 hours cephalexin (KEFLEX) 500 mg, Oral, 2 times daily cetirizine (ZYRTEC) 10 mg, Oral, Daily gabapentin (NEURONTIN) 100 mg, Oral, Nightly PRN hydroCHLOROthiazide (HYDRODIURIL) 25 mg, Oral, Daily magnesium oxide 400 MG capsule Every 24 hours rivaroxaban (Xarelto) 20 MG tablet TAKE 1 TABLET DAILY WITH EVENING MEAL I have reviewed and reconciled the history and medication list with the patient today. REVIEW OF SYMPTOMS: Review of Systems OBJECTIVE: Visit Vitals BP 106/66 Pulse 72 Ht 5' 10 Wt 229 lb SpO2 97% BMI 32.86 kg/m Smoking Status Never BSA 2.27 m Physical Exam Vitals and nursing note reviewed. Constitutional: Comments: In obvious pain Cardiovascular: Rate and Rhythm: Normal rate and regular rhythm. Pulses: Normal pulses. Heart sounds: Normal heart sounds. Pulmonary: Effort: Pulmonary effort is normal. Breath sounds: Normal breath sounds. Abdominal: General: Bowel sounds are normal. Tenderness: There is right CVA tenderness and guarding. Comments: Pain with palpation in the RUQ. Pain over the lower ribs with palpation. Musculoskeletal: Cervical back: Normal range of motion and neck supple. Neurological: Mental Status: He is alert. ASSESSMENT AND PLAN: Assessment & Plan 1. Right-sided flank pain. The patient's discomfort is primarily localized over the ribs, which is not typically indicative of renal issues. *A repeat CT scan will be ordered to investigate any changes since the previous scan conducted on Tuesday. He reports the pain as a constant pushing sensation, rated at a five, and it does not radiate. The pain has been persistent despite taking pain medication. There is no associated fever, chills, nausea, vomiting, or changes in urination. He is advised to continue taking pain medication as needed and to monitor for any changes in symptoms. 2. Constipation. The patient experienced constipation, likely due to the pain medication. He reports that this issue has resolved on its own. He is advised to stay hydrated and consider dietary adjustments to prevent future occurrences. 3. Hernias. The patient is aware of having at least one hernia. He is advised to monitor for any changes, particularly if it starts affecting bowel movements. No immediate intervention is required unless symptoms worsen. 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 The prostate gland is a walnut-sized gland that is located below the bladder and in front of the rectum in males. The function of the prostate is to add fluid to semen during ejaculation. Prostate cancer is one of the most common types of cancer in men. Who should have prostate cancer screening? Screening recommendations vary based on age and other risk factors, as well as between the professional organizations who make the recommendations. In general, screening is recommended if: You are age 50 to 70 and have an average risk for prostate cancer. You should talk with your health care provider about your need for screening and how often screening should be done. Because most prostate cancers are slow growing and will not cause , screening in this age group is generally reserved for men who have a 10- to 15-year life expectancy. You are younger than age 50, and you have these risk factors: ?Having a father, brother, or uncle who has been diagnosed with prostate cancer. The risk is higher if your family member's cancer occurred at an early age or if you have multiple family members with prostate cancer at an early age. ?Being a male who is Black or is of [place] or sub-Saharan descent. In general, screening is not recommended if: You are younger than age 40. You are between the ages of 40 and 49 and you have no risk factors. You are 70 years of age or older. At this age, the risks that screening can cause are greater than the benefits that it may provide. If you are at high risk for prostate cancer, your health care provider may recommend that you have screenings more often or that you start screening at a younger age. How is screening for prostate cancer done? The recommended prostate cancer screening test is a blood test called the prostate-specific antigen (PSA) test. PSA is a protein that is made in the prostate. As you age, your prostate naturally produces more PSA. Abnormally high PSA levels may be caused by: Prostate cancer. An enlarged prostate that is not caused by cancer (benign prostatic hyperplasia, or BPH). This condition is very common in older men. A prostate gland infection (prostatitis) or urinary tract infection. Certain medicines such as male hormones (like testosterone) or other medicines that raise testosterone levels. A rectal exam may be done as part of prostate cancer screening to help provide information about the size of your prostate gland. When a rectal exam is performed, it should be done after the PSA level is drawn to avoid any effect on the results. Depending on the PSA results, you may need more tests, such as: A physical exam to check the size of your prostate gland, if not done as part of screening. Blood and imaging tests. A procedure to remove tissue samples from your prostate gland for testing (biopsy). This is the only way to know for certain if you have prostate cancer. What are the benefits of prostate cancer screening? Screening can help to identify cancer at an early stage, before symptoms start and when the cancer can be treated more easily. There is a small chance that screening may lower your risk of dying from prostate cancer. The chance is small because prostate cancer is a slow-growing cancer, and most men with prostate cancer from a different cause. What are the risks of prostate cancer screening? The main risk of prostate cancer screening is diagnosing and treating prostate cancer that would never have caused any symptoms or problems. This is called overdiagnosisand overtreatment. PSA screening cannot tell you if your PSA is high due to cancer or a different cause. A prostate biopsy is the only procedure to diagnose prostate cancer. Even the results of a biopsy may not tell you if your cancer needs to be treated. Slow-growing prostate cancer may not need any treatment other than monitoring, so diagnosing and treating it may cause unnecessary stress or other side effects. Questions to ask your health care provider When should I start prostate cancer screening? What is my risk for prostate cancer? How often do I need screening? What type of screening tests do I need? How do I get my test results? What do my results mean? Do I need treatment? Where to find more information The [employer]: www.cancer.org [employer]: www.auanet.org Contact a health care provider if: You have difficulty urinating. You have pain when you urinate or ejaculate. You have blood in your urine or semen. You have pain in your back or in the area of your prostate. Summary Prostate cancer is a common type of cancer in men. The prostate gland is located below the bladder and in front of the rectum. This gland adds fluid to semen during ejaculation. Prostate cancer screening may identify cancer at an early stage, when the cancer can be treated more easily and is less likely to have spread to other areas of the body. The prostate-specific antigen (PSA) test is the recommended screening test for prostate cancer, but it has associated risks. Discuss the risks and benefits of prostate cancer screening with your health care provider. If you are age 70 or older, the risks that screening can cause are greater than the benefits that it may provide. This information is not intended to replace advice given to you by your health care provider. Make sure you discuss any questions you have with your health care provider. Document Revised: 04/26/2022 Document Reviewed: 04/26/2022 Elsevier Patient Education 2022 [employer]eds. Follow Up Care 06/27/2023 09:37:32 With:CASANDRA MOSHER, Alfa [employer], URL Address: [address] [place] [address] [place] [address]- When: Unknown [facility] 06-29-2024 Note Patient Education Oncology Prostate Cancer Screening Prostate cancer screening is testing that is done to check for the presence of prostate cancer in men. The prostate gland is a walnut-sized gland that is located below the bladder and in front of the rectum in males. The function of the prostate is to add fluid to semen during ejaculation. Prostate cancer is one of the most common types of cancer in men. Who should have prostate cancer screening? Screening recommendations vary based on age and other risk factors, as well as between the professional organizations who make the recommendations. In general, screening is recommended if: ? You are age 50 to 70 and have an average risk for prostate cancer. You should talk with your health care provider about your need for screening and how often screening should be done. Because most prostate cancers are slow growing and will not cause , screening in this age group is generally reserved for men who have a 10- to 15-year life expectancy. ? You are younger than age 50, and you have these risk factors: ? Having a father, brother, or uncle who has been diagnosed with prostate cancer. The risk is higher if your family member's cancer occurred at an early age or if you have multiple family members with prostate cancer at an early age. ? Being a male who is Black or is of [place] or sub-Saharan descent. In general, screening is not recommended if: ? You are younger than age 40. ? You are between the ages of 40 and 49 and you have no risk factors. ? You are 70 years of age or older. At this age, the risks that screening can cause are greater than the benefits that it may provide. If you are at high risk for prostate cancer, your health care provider may recommend that you have screenings more often or that you start screening at a younger age. How is screening for prostate cancer done? The recommended prostate cancer screening test is a blood test called the prostate-specific antigen (PSA) test. PSA is a protein that is made in the prostate. As you age, your prostate naturally produces more PSA. Abnormally high PSA levels may be caused by: ? Prostate cancer. ? An enlarged prostate that is not caused by cancer (benign prostatic hyperplasia, or BPH). This condition is very common in older men. ? A prostate gland infection (prostatitis) or urinary tract infection. ? Certain medicines such as male hormones (like testosterone) or other medicines that raise testosterone levels. A rectal exam may be done as part of prostate cancer screening to help provide information about the size of your prostate gland. When a rectal exam is performed, it should be done after the PSA level is drawn to avoid any effect on the results. Depending on the PSA results, you may need more tests, such as: ? A physical exam to check the size of your prostate gland, if not done as part of screening. ? Blood and imaging tests. ? A procedure to remove tissue samples from your prostate gland for testing (biopsy). This is the only way to know for certain if you have prostate cancer. What are the benefits of prostate cancer screening? ? Screening can help to identify cancer at an early stage, before symptoms start and when the cancer can be treated more easily. ? There is a small chance that screening may lower your risk of dying from prostate cancer. The chance is small because prostate cancer is a slow-growing cancer, and most men with prostate cancer from a different cause. What are the risks of prostate cancer screening? The main risk of prostate cancer screening is diagnosing and treating prostate cancer that would never have caused any symptoms or problems. This is called overdiagnosisand overtreatment. PSA screening cannot tell you if your PSA is high due to cancer or a different cause. A prostate biopsy is the only procedure to diagnose prostate cancer. Even the results of a biopsy may not tell you if your cancer needs to be treated. Slow-growing prostate cancer may not need any treatment other than monitoring, so diagnosing and treating it may cause unnecessary stress or other side effects. Questions to ask your health care provider ? When should I start prostate cancer screening? ? What is my risk for prostate cancer? ? How often do I need screening? ? What type of screening tests do I need? ? How do I get my test results? ? What do my results mean? ? Do I need treatment? Where to find more information ? The [employer]: www.cancer.org ? [employer]: www.auanet.org Contact a health care provider if: ? You have difficulty urinating. ? You have pain when you urinate or ejaculate. ? You have blood in your urine or semen. ? You have pain in your back or in the area of your prostate. Summary ? Prostate cancer is a common type of cancer in men. The prostate gland is located below the bladder and in front of the rectum. (more content not included)... [facility] 11-24-2023 History of Present illness Narrative Sheri Loyola Date of visit: 11/24/2023 Date of : 1950 Age: 73 y.o. 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 b complex vitamins tablet Take 1 tablet by mouth in the morning. cholecalciferol, vitamin D3, 2,000 units capsule Take 1 capsule (2,000 Units total) by mouth in the morning. cyanocobalamin 1000 MCG tablet Take 1 tablet (1,000 mcg total) by mouth in the morning. magnesium oxide (MAG-OX) 400 mg tablet Take 1 tablet (400 mg total) by mouth in the morning. carvediloL (COREG) 12.5 mg tablet Take 1 tablet (12.5 mg total) by mouth in the morning and 1 tablet (12.5 mg total) before bedtime. 180 tablet 3 dilTIAZem CD (CARDIZEM CD) 180 mg 24 hr capsule Take 1 capsule (180 mg total) by mouth in the morning. 90 capsule 3 hydroCHLOROthiazide (HYDRODIURIL) 12.5 mg tablet Take 1 tablet (12.5 mg total) by mouth daily. 45 tablet 3 rivaroxaban (XARELTO) 20 mg tablet tablet Take 1 tablet (20 mg total) by mouth once daily. 90 tablet 3 No current facility-administered medications for this visit. Chief Complaint Patient presents with Follow-up EST PT F/U 1 YR L/S TMP SCHED W PT NO TESTS Med Refill All cardiac meds 90 days History of Present Illness I last saw this 73-year-old in 2009. 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 He is unaccompanied today CV TESTING HISTORY: ECHO: No results found. STRESS: No results found. HOLTER: No results found. CARDIAC CATH: No results found. CAROTID: No results found. CXR: X-ray chest 2 views Result Date: 09/02/2023 CLINICAL HISTORY: wheezing, cough COMPARISON: Prior studies are not currently available. FINDINGS: The cardiomediastinal silhouette is unremarkable. The lungs are free of infiltrates effusions or consolidations. There is a 12 mm partially calcified lesion in the left lung which may represent a granuloma. The bones and soft tissues are within normal limits. There are no acute cardiopulmonary changes. ELECTRONICALLY SIGNED BY: Gaurang King MD Lipid Profile: EK11/24/2023 Atrial fibrillation 84 beats minute with nonspecific diffuse ST T wave abnormality Past Medical History: Diagnosis Date Abnormal ECG Acute embolism and thrombosis of unspecified deep veins of unspecified lower extremity ([facility]) Acute low back pain Arthritis DVT (deep venous thrombosis) ([facility]) Family history of ischemic heart disease and other diseases of the circulatory system HL (hearing loss) bilateral Hyperlipemia Hypertension Kidney stones Obstructive sleep apnea no cpap Overweight Palpitations Permanent atrial fibrillation ([facility]) Solitary kidney Visual impairment glasses Past Surgical History: Procedure Laterality Date CARDIAC ELECTROPHYSIOLOGY STUDY AND ABLATION PROSTATE BIOPSY x2 REPAIR ROTATOR CUFF SHOULDER Left 10/20/2020 Performed by Jack Lu DO at [facility] Pete 2016 Spurs removed SPINE SURGERY ULNAR NERVE REPAIR VASECTOMY Family History Problem Relation Age of Onset Heart disease Mother Back Problems Mother Cancer Father Parkinsonism Father Diabetes Maternal Grandmother Memory loss Paternal Grandmother Social History Socioeconomic History Marital status: Spouse name: Not on file Number of children: Not on file Years of education: Not on file Highest education level: Not on file Occupational History Not on file Tobacco Use Smoking status: Never Smokeless tobacco: Never Vaping Use Vaping Use: Never used Substance and Sexual Activity Alcohol use: Yes Alcohol/week: 4.0 standard drinks of alcohol Types: 4 Shots of liquor per week Comment: bourbon Drug use: No Sexual activity: Defer Comment: not addressed Other Topics Concern Caffeine Use Yes Social History Narrative Not on file Social Determinants of Health Financial Resource Strain: Not on file Food Insecurity: No Food Insecurity (11/24/2023) Hunger Screening Food Insecurity - Worry: Never True Food Insecurity - Inability: Never True Transportation Needs: Not on file Physical Activity: Not on file Stress: Not on file Social Connections: Not on file Interpersonal Safety: Not on file Review of Systems Review of Systems Constitutional: Negative for chills, fever and malaise/fatigue. HENT: Positive for hearing loss. Negative for hoarse voice and nosebleeds. Eyes: Negative for blurred vision and double vision. Respiratory: Negative for cough, shortness of breath and wheezing. Hematologic/Lymphatic: Bruises/bleeds easily. Skin: Negative for color change and rash. Musculoskeletal: Positive for back pain, joint swelling and muscle weakness. Gastrointestinal: Negative for change in bowel habit, constipation and diarrhea. Neurological: Positive for loss of balance. Negative for dizziness, headaches, light-headedness and numbness. Psychiatric/Behavioral: Negative for depression. The patient is not nervous/anxious. Allergic/Immunologic: Negative for environmental allergies. CARDIOVASCULAR: Please review HPI. Physical Examination General appearance: Alert, oriented and cooperative. In no acute distress. Pleasant Skin: Warm and dry to touch. Respiratory: Clear to auscultation bilaterally, no use of accessory muscles. Cardiovascular: Variable S1 Musculoskeletal: No peripheral edema. VITAL SIGNS: BP 142/80 (BP Site: Left Arm, BP Postition: Sitting) Pulse 87 Ht 177.8 cm (5' 10 ) Wt 103.9 kg (229 lb) SpO2 95% BMI 32.86 kg/m Orders Placed or Reconciled This Encounter Medications carvediloL (COREG) 12.5 mg tablet Sig: Take 1 tablet (12.5 mg total) by mouth in the morning and 1 tablet (12.5 mg total) before bedtime. Dispense: 180 tablet Refill: 3 dilTIAZem CD (CARDIZEM CD) 180 mg 24 hr capsule Sig: Take 1 capsule (180 mg total) by mouth in the morning. Dispense: 90 capsule Refill: 3 hydroCHLOROthiazide (HYDRODIURIL) 12.5 mg tablet Sig: Take 1 tablet (12.5 mg total) by mouth daily. Dispense: 45 tablet Refill: 3 rivaroxaban (XARELTO) 20 mg tablet tablet Sig: Take 1 tablet (20 mg total) by mouth once daily. Dispense: 90 tablet Refill: 3 Medications Discontinued During This Encounter Medication Reason hydroCHLOROthiazide (HYDRODIURIL) 12.5 mg tablet Reorder rivaroxaban (XARELTO) 20 mg tablet tablet Reorder carvediloL (COREG) 12.5 mg tablet Reorder dilTIAZem CD (CARDIZEM CD) 180 mg 24 hr capsule Reorder IMPRESSIONS/PLAN 1. Chronic atrial fibrillation (CMS-HCC) - POCT EKG 2. Paroxysmal atrial fibrillation (CMS-HCC) - POCT EKG - carvediloL (COREG) 12.5 mg tablet; Take 1 tablet (12.5 mg total) by mouth in the morning and 1 tablet (12.5 mg total) before bedtime. Dispense: 180 tablet; Refill: 3 3. Benign essential hypertension - dilTIAZem CD (CARDIZEM CD) 180 mg 24 hr capsule; Take 1 capsule (180 mg total) by mouth in the morning. Dispense: 90 capsule; Refill: 3 4. Mixed hyperlipidemia 5. Permanent atrial fibrillation (CMS-HCC) - dilTIAZem CD (CARDIZEM CD) 180 mg 24 hr capsule; Take 1 capsule (180 mg total) by mouth in the morning. Dispense: 90 capsule; Refill: 3 1. Chronic atrial fibrillation --history of atrial flutter ablation in 2010 -on Xarelto 2. Primary hypertension 3. History of DVT -on Xarelto 4. Solitary kidney 5. Low normal left ventricular systolic function on echocardiogram 11/2020 6. Low risk stress test 2018 TODAYS ORDERS Orders Placed This Encounter Procedures POCT EKG FOLLOW UP Return in about 1 year (around 11/24/2024). PCP: Nilam Betancourt MD Referring Physician: Nilam Betancourt MD [address] [place] [address] documented in this encounter [employer] 11-23-2023 Miscellaneous Notes Called patient to remind them to bring their most current copy of their medication list with them to their appt. Patient verbalizes understanding. documented in this encounter [employer] 11-23-2023 Telephone encounter Note Called patient to remind them to bring their most current copy of their medication list with them to their appt. Patient verbalizes understanding. [employer] 06-27-2023 Hospital Discharge instructions Patient Education 06/27/2023 09:12:50 Benign Prostatic Hyperplasia Benign Prostatic Hyperplasia Benign prostatic hyperplasia (BPH) is an enlarged prostate gland that is caused by the normal aging process. The prostate may get bigger as a man gets older. The condition is not caused by cancer. The prostate is a walnut-sized gland that is involved in the production of semen. It is located in front of the rectum and below the bladder. The bladder stores urine. The urethra carries stored urine out of the body. An enlarged prostate can press on the urethra. This can make it harder to pass urine. The buildup of urine in the bladder can cause infection. Back pressure and infection may progress to bladder damage and kidney (renal) failure. What are the causes? This condition is part of the normal aging process. However, not all men develop problems from this condition. If the prostate enlarges away from the urethra, urine flow will not be blocked. If it enlarges toward the urethra and compresses it, there will be problems passing urine. What increases the risk? This condition is more likely to develop in men older than 50 years. What are the signs or symptoms? Symptoms of this condition include: Getting up often during the night to urinate. Needing to urinate frequently during the day. Difficulty starting urine flow. Decrease in size and strength of your urine stream. Leaking (dribbling) after urinating. Inability to pass urine. This needs immediate treatment. Inability to completely empty your bladder. Pain when you pass urine. This is more common if there is also an infection. Urinary tract infection (UTI). How is this diagnosed? This condition is diagnosed based on your medical history, a physical exam, and your symptoms. Tests will also be done, such as: A post-void bladder scan. This measures any amount of urine that may remain in your bladder after you finish urinating. A digital rectal exam. In a rectal exam, your health care provider checks your prostate by putting a lubricated, gloved finger into your rectum to feel the back of your prostate gland. This exam detects the size of your gland and any abnormal lumps or growths. An exam of your urine (urinalysis). A prostate specific antigen (PSA) screening. This is a blood test used to screen for prostate cancer. An ultrasound. This test uses sound waves to electronically produce a picture of your prostate gland. Your health care provider may refer you to a specialist in kidney and prostate diseases (urologist). How is this treated? Once symptoms begin, your health care provider will monitor your condition (active surveillance or watchful waiting). Treatment for this condition will depend on the severity of your condition. Treatment may include: Observation and yearly exams. This may be the only treatment needed if your condition and symptoms are mild. Medicines to relieve your symptoms, including: ?Medicines to shrink the prostate. ?Medicines to relax the muscle of the prostate. Surgery in severe cases. Surgery may include: ?Prostatectomy. In this procedure, the prostate tissue is removed completely through an open incision or with a laparoscope or robotics. ?Transurethral resection of the prostate (TURP). In this procedure, a tool is inserted through the opening at the tip of the penis (urethra). It is used to cut away tissue of the inner core of the prostate. The pieces are removed through the same opening of the penis. This removes the blockage. ?Transurethral incision (TUIP). In this procedure, small cuts are made in the prostate. This lessens the prostate's pressure on the urethra. ?Transurethral microwave thermotherapy (TUMT). This procedure uses microwaves to create heat. The heat destroys and removes a small amount of prostate tissue. ?Transurethral needle ablation (TUNA). This procedure uses radio frequencies to destroy and remove a small amount of prostate tissue. ?Interstitial laser coagulation (ILC). This procedure uses a laser to destroy and remove a small amount of prostate tissue. ?Transurethral electrovaporization (TUVP). This procedure uses electrodes to destroy and remove a small amount of prostate tissue. ?Prostatic urethral lift. This procedure inserts an implant to push the lobes of the prostate away from the urethra. Follow these instructions at home: Take [id number] and prescription medicines only as told by your health care provider. Monitor your symptoms for any changes. Contact your health care provider with any changes. Avoid drinking large amounts of liquid before going to bed or out in public. Avoid or reduce how much caffeine or alcohol you drink. Give yourself time when you urinate. Keep all follow-up visits. This is important. Contact a health care provider if: You have unexplained back pain. Your symptoms do not get better with treatment. You develop side effects from the medicine you are taking. Your urine becomes very dark or has a bad smell. Your lower abdomen becomes distended and you have trouble passing urine. Get help right away if: You have a fever or chills. You suddenly cannot urinate. You feel light-headed or very dizzy, or you faint. There are large amounts of blood or clots in your urine. Your urinary problems become hard to manage. You develop moderate to severe low back or flank pain. The flank is the side of your body between the ribs and the hip. These symptoms may be an emergency. Get help right away. Call 911. Do not wait to see if the symptoms will go away. Do not drive yourself to the hospital. Summary Benign prostatic hyperplasia (BPH) is an enlarged prostate that is caused by the normal aging process. It is not caused by cancer. An enlarged prostate can press on the urethra. This can make it hard to pass urine. This condition is more likely to develop in men older than 50 years. Get help right away if you suddenly cannot urinate. This information is not intended to replace advice given to you by your health care provider. Make sure you discuss any questions you have with your health care provider. Document Revised: 05/19/2022 Document Reviewed: 05/19/2022 [employer] Patient Education 2022 [employer]. Follow Up Care 07/05/2022 11:05:26 With:CASANDRA MOSHER, Alfa [employer], URL Address: [facility] [address] , [place] [address]- [phone] When:Within 1 Year(s) Comments:[facility] 10-18-2022 Note PROCEDURE: MRI BRAIN WO W CON COMPARISON: None. HISTORY: Sensorineural hearing loss, bilateral TECHNIQUE: A variety of imaging planes and parameters were utilized for visualization of suspected pathology. Images were performed without and with ml intravenous Dotarem contrast. FINDINGS: IACS: No evidence of acoustic schwannoma or other posterior fossa mass. INNER EARS: No abnormal signal intensity. MIDDLE EARS: No fluid or abnormal soft tissue. MASTOIDS: No fluid or abnormal soft tissue. SKULL BASE: Negative. Cavernous sinus and Meckel's caves are normal. CEREBRUM: A few T2 hyperintensities within the deep white matter favoring chronic small vessel ischemic changes. No hemorrhage or mass. CEREBELLUM: No edema, hemorrhage, mass, acute infarction, or inappropriate atrophy. BRAINSTEM: No edema, hemorrhage, mass, acute infarction, or inappropriate atrophy. CSF SPACES: Ventricles, cisterns, and sulci are appropriate for age. No hydrocephalus, subarachnoid hemorrhage, or mass. SINUSES: Small mucocele/retention cyst within left maxillary sinus. ORBITS: Limited views are unremarkable. OTHER: No abnormal meningeal or parenchymal enhancement. IMPRESSION: 1. No abnormal findings within the middle or inner ear to account for patient's symptoms. 2. Unremarkable MRI of the brain. 3. Left maxillary mild chronic sinusitis. Electronically authenticated by: KATIE WYATT Date: 2022-10-18 11:48 [facility] 07-05-2022 Hospital Discharge instructions Patient Education 07/05/2022 10:55:33 Prostate-Specific Antigen Test Prostate-Specific Antigen Test Why am I having this test? The prostate-specific antigen (PSA) test is a screening test for prostate cancer. It can identify early signs of prostate cancer, which may allow for more effective treatment. Your health care provider may recommend that you have a PSA test starting at age 40 or that you have one earlier or later, depending on your risk factors for prostate cancer. You may also have a PSA test: To monitor treatment of prostate cancer. To check whether prostate cancer has returned after treatment. If you have signs of other conditions that can affect PSA levels, such as: ?An enlarged prostate that is not caused by cancer (benign prostatic hyperplasia, BPH). This condition is very common in older men. ?A prostate infection. What is being tested? This test measures the amount of PSA in your blood. PSA is a protein that is made in the prostate. The prostate naturally produces more PSA as you age, but very high levels may be a sign of a medical condition. What kind of sample is taken? A blood sample is required for this test. It is usually collected by inserting a needle into a blood vessel or by sticking a finger with a small needle. Blood for this test should be drawn before having an exam of the prostate. How do I prepare for this test? Do not ejaculate starting 24 hours before your test, or as long as told by your health care provider. Tell a health care provider about: Any allergies you have. All medicines you are taking, including vitamins, herbs, eye drops, creams, and qetw-qoh-cnoatei medicines. This also includes: ?Medicines to assist with hair growth, such as finasteride. ?Any recent exposure to a medicine called diethylstilbestrol. Any blood disorders you have. Any recent procedures you have had, especially any procedures involving the prostate or rectum. Any medical conditions you have. Any recent urinary tract infections (UTIs) you have had. How are the results reported? Your test results will be reported as a value that indicates how much PSA is in your blood. This will be given as nanograms of PSA per milliliter of blood (ng/mL). Your health care provider will compare your results to normal ranges that were established after testing a large group of people (reference ranges). Reference ranges may vary among labs and hospitals. PSA levels vary from person to person and generally increase with age. Because of this variation, there is no single PSA value that is considered normal for everyone. Instead, PSA reference ranges are used to describe whether your PSA levels are considered low or high (elevated). Common reference ranges are: Low: 0 2.5 ng/mL. Slightly to moderately elevated: 2.6 10.0 ng/mL. Moderately elevated: 10.0 19.9 ng/mL. Significantly elevated: 20 ng/mL or greater. Sometimes, the test results may report that a condition is present when it is not present (false-positive result). What do the results mean? A test result that is higher than 4 ng/mL may mean that you are at an increased risk for prostate cancer. However, a PSA test by itself is not enough to diagnose prostate cancer. High PSA levels may also be caused by the natural aging process, prostate infection, or BPH. PSA screening cannot tell you if your PSA is high due to cancer or a different cause. A prostate biopsy is the only way to diagnose prostate cancer. A risk of having the PSA test is diagnosing and treating prostate cancer that would never have caused any symptoms or problems (overdiagnosis and overtreatment). Talk with your health care provider about what your results mean. Questions to ask your health care provider Ask your health care provider, or the department that is doing the test: When will my results be ready? How will I get my results? What are my treatment options? What other tests do I need? What are my next steps? Summary The prostate-specific antigen (PSA) test is a screening test for prostate cancer. Your health care provider may recommend that you have a PSA test starting at age 40 or that you have one earlier or later, depending on your risk factors for prostate cancer. A test result that is higher than 4 ng/mL may mean that you are at an increased risk for prostate cancer. However, elevated levels can be caused by a number of conditions other than prostate cancer. Talk with your health care provider about what your results mean. This information is not intended to replace advice given to you by your health care provider. Make sure you discuss any questions you have with your health care provider. Document Released: 12/03/2005 Document Revised: 10/13/2018 Document Reviewed: 08/07/2018 [employer] Patient Education 2020 [employer]. 07/05/2022 10:55:29 Calorie Counting for Weight Loss Calorie Counting for Weight Loss Calories are units of energy. Your body needs a certain amount of calories from food to keep you going throughout the day. When you eat more calories than your body needs, your body stores the extra calories as fat. When you eat fewer calories than your body needs, your body boo fat to get the energy it needs. Calorie counting means keeping track of how many calories you eat and drink each day. Calorie counting can be helpful if you need to lose weight. If you make sure to eat fewer calories than your body needs, you should lose weight. Ask your health care provider what a healthy weight is for you. For calorie counting to work, you will need to eat the right number of calories in a day in order to lose a healthy amount of weight per week. A dietitian can help you determine how many calories you need in a day and will give you suggestions on how to reach your calorie goal. A healthy amount of weight to lose per week is usually 1 2 lb (0.5 0.9 kg). This usually means that your daily calorie intake should be reduced by 500 750 calories. Eating 1,200 1,500 calories per day can help most women lose weight. Eating 1,500 1,800 calories per day can help most men lose weight. What is my plan? My goal is to have calories per day. If I have this many calories per day, I should lose around pounds per week. What do I need to know about calorie counting? In order to meet your daily calorie goal, you will need to: Find out how many calories are in each food you would like to eat. Try to do this before you eat. Decide how much of the food you plan to eat. Write down what you ate and how many calories it had. Doing this is called keeping a food log. To successfully lose weight, it is important to balance calorie counting with a healthy lifestyle that includes regular activity. Aim for 150 minutes of moderate exercise (such as walking) or 75 minutes of vigorous exercise (such as running) each week. Where do I find calorie information? The number of calories in a food can be found on a Nutrition Facts label. If a food does not have a Nutrition Facts label, try to look up the calories online or ask your dietitian for help. Remember that calories are listed per serving. If you choose to have more than one serving of a food, you will have to multiply the calories per serving by the amount of servings you plan to eat. For example, the label on a package of bread might say that a serving size is 1 slice and that there are 90 calories in a serving. If you eat 1 slice, you will have eaten 90 calories. If you eat 2 slices, you will have eaten 180 calories. How do I keep a food log? Immediately after each meal, record the following information in your food log: What you ate. Don't forget to include toppings, sauces, and other extras on the food. How much you ate. This can be measured in cups, ounces, or number of items. How many calories each food and drink had. The total number of calories in the meal. Keep your food log near you, such as in a small notebook in your pocket, or use a mobile lilia or website. Some programs will calculate calories for you and show you how many calories you have left for the day to meet your goal. What are some calorie counting tips? Use your calories on foods and drinks that will fill you up and not leave you hungry: ?Some examples of foods that fill you up are nuts and nut butters, vegetables, lean proteins, and high-fiber foods like whole grains. High-fiber foods are foods with more than 5 g fiber per serving. ?Drinks such as sodas, specialty coffee drinks, alcohol, and juices have a lot of calories, yet do not fill you up. Eat nutritious foods and avoid empty calories. Empty calories are calories you get from foods or beverages that do not have many vitamins or protein, such as candy, sweets, and soda. It is better to have a nutritious high-calorie food (such as an avocado) than a food with few nutrients (such as a bag of chips). Know how many calories are in the foods you eat most often. This will help you calculate calorie counts faster. Pay attention to calories in drinks. Low-calorie drinks include water and unsweetened drinks. Pay attention to nutrition labels for low fat or fat free foods. These foods sometimes have the same amount of calories or more calories than the full fat versions. They also often have added sugar, starch, or salt, to make up for flavor that was removed with the fat. Find a way of tracking calories that works for you. Get creative. Try different apps or programs if writing down calories does not work for you. What are some portion control tips? Know how many calories are in a serving. This will help you know how many servings of a certain food you can have. Use a measuring cup to measure serving sizes. You could also try weighing out portions on a kitchen scale. With time, you will be able to estimate serving sizes for some foods. Take some time to put servings of different foods on your favorite plates, bowls, and cups so you know what a serving looks like. Try not to eat straight from a bag or box. Doing this can lead to overeating. Put the amount you would like to eat in a cup or on a plate to make sure you are eating the right portion. Use smaller plates, glasses, and bowls to prevent overeating. Try not to multitask (for example, watch TV or use your computer) while eating. If it is time to eat, sit down at a table and enjoy your food. This will help you to know when you are full. It will also help you to be aware of what you are eating and how much you are eating. What are tips for following this plan? Reading food labels Check the calorie count compared to the serving size. The serving size may be smaller than what you are used to eating. Check the source of the calories. Make sure the food you are eating is high in vitamins and protein and low in saturated and trans fats. Shopping Read nutrition labels while you shop. This will help you make healthy decisions before you decide to purchase your food. Make a grocery list and stick to it. Cooking Try to cook your favorite foods in a healthier way. For example, try baking instead of frying. Use low-fat dairy products. Meal planning Use more fruits and vegetables. Half of your plate should be fruits and vegetables. Include lean proteins like poultry and fish. How do I count calories when eating out? Ask for smaller portion sizes. Consider sharing an entree and sides instead of getting your own entree. If you get your own entree, eat only half. Ask for a box at the beginning of your meal and put the rest of your entree in it so you are not tempted to eat it. If calories are listed on the menu, choose the lower calorie options. Choose dishes that include vegetables, fruits, whole grains, low-fat dairy products, and lean protein. Choose items that are boiled, broiled, grilled, or steamed. Stay away from items that are buttered, battered, fried, or served with cream sauce. Items labeled crispy are usually fried, unless stated otherwise. Choose water, low-fat milk, unsweetened iced tea, or other drinks without added sugar. If you want an alcoholic beverage, choose a lower calorie option such as a glass of wine or light beer. Ask for dressings, sauces, and syrups on the side. These are usually high in calories, so you should limit the amount you eat. If you want a salad, choose a garden salad and ask for grilled meats. Avoid extra toppings like morales, cheese, or fried items. Ask for the dressing on the side, or ask for olive oil and vinegar or lemon to use as dressing. Estimate how many servings of a food you are given. For example, a serving of cooked rice is cup or about the size of half a baseball. Knowing serving sizes will help you be aware of how much food you are eating at restaurants. The list below tells you how big or small some common portion sizes are based on everyday objects: ?1 oz 4 stacked dice. ?3 oz 1 deck of cards. ?1 tsp 1 . ?1 Tbsp a ping-pong ball. ?2 Tbsp 1 ping-pong ball. ? cup baseball. ?1 cup 1 baseball. Summary Calorie counting means keeping track of how many calories you eat and drink each day. If you eat fewer calories than your body needs, you should lose weight. A healthy amount of weight to lose per week is usually 1 2 lb (0.5 0.9 kg). This usually means reducing your daily calorie intake by 500 750 calories. The number of calories in a food can be found on a Nutrition Facts label. If a food does not have a Nutrition Facts label, try to look up the calories online or ask your dietitian for help. Use your calories on foods and drinks that will fill you up, and not on foods and drinks that will leave you hungry. Use smaller plates, glasses, and bowls to prevent overeating. This information is not intended to replace advice given to you by your health care provider. Make sure you discuss any questions you have with your health care provider. Document Released: 10/31/2006 Document Revised: 07/20/2019 Document Reviewed: 09/30/2017 [employer] Patient Education 2020 [employer]eds. Follow Up Care 06/22/2021 10:43:12 With:Alfa GUAJARDO MD, URL Address: [address] [place], [place] [id number] Business (1) When:Within 1 Year(s) Comments:w/PSA [facility] Evaluation + Plan note Future Appointments Appointment Date:06/27/2023 08:45:00 AM Scheduled Provider:Alfa GUAJARDO MD Location:[facility] Appointment Type:URO Office Visit Diagnostic Tests PendingPSA Total 07/05/22 [facility] Evaluation + Plan note Future Appointments Appointment Date:06/29/2024 08:30:00 AM Scheduled Provider:Alfa GUAJARDO MD Location:[facility] Appointment Type:URO Office Visit Diagnostic Tests PendingPSA Total 06/27/23 [facility] Evaluation + Plan note Future Appointments Appointment Date:06/28/2025 08:15:00 AM Scheduled Provider:Alfa GUAJARDO MD Location:[facility] Appointment Type:URO Office Visit Diagnostic Tests PendingPSA Total 10/14/24 [facility] Evaluation note No assessment inform ation available [facility] Work Phone: Evaluation note Diagnosis Muscle spasm- Primary Spasm of muscle Obstructive sleep apnea syndrome Obstructive sleep apnea (adult) (pediatric) Constipation by delayed colonic transit Slow transit constipation Obesity (BMI 30-39.9) documented [facility] encounter [facility]* Diagnosis Class 1 obesity due to excess calories without serious comorbidity with body mass index (BMI) of 32.0 to 32.9 in adult- Primary documented in this encounter [facility]* Diagnosis Benign essential hypertension (CMS/HCC) Essential hypertension, benign documented [facility]* Diagnosis Nephrolithiasis- Primary Calculus of kidney Flank pain Abdominal pain, unspecified site documented [facility]* Diagnosis Sensorineural hearing loss (SNHL) of both ears- Primary [facility]* Diagnosis Muscle spasm- Primary Spasm of muscle documented [facility]* Diagnosis Muscle spasm- Primary Spasm of muscle documented in [facility]* Diagnosis Paroxysmal atrial fibrillation (CMS-HCC) Atrial fibrillation [facility] Diagnosis Benign essential hypertension (CMS/HCC)- Primary Essential hypertension, benign Atrial fibrillation, persistent (HCC) (CMS/HCC) Mixed hyperlipidemia (CMS/HCC) Mixed hyperlipidemia Mixed conductive and sensorineural hearing loss of left ear, unspecified hearing status on contralateral side Involuntary movements Neuropathy Mononeuritis of unspecified site Pulmonary fibrosis, unspecified (CMS/HCC) documented in this encounter [facility]* Diagnosis Permanent atrial fibrillation (CMS-HCC)- Primary Atrial fibrillation Benign essential hypertension Essential hypertension, benign Dyspnea on exertion Other dyspnea and respiratory abnormality Mixed hyperlipidemia Paroxysmal atrial fibrillation (CMS-HCC) Atrial fibrillation documented in this encounter [facility]* Diagnosis Paroxysmal atrial fibrillation (CMS-HCC)- Primary Atrial fibrillation Chronic atrial fibrillation (CMS-HCC) Atrial fibrillation Benign essential hypertension Essential hypertension, benign Mixed hyperlipidemia Permanent atrial fibrillation (CMS-HCC) Atrial fibrillation documented in this encounter [facility]* Diagnosis Paroxysmal atrial fibrillation (CMS-HCC) Atrial fibrillation Permanent atrial fibrillation (CMS-HCC) Atrial fibrillation Benign essential hypertension Essential hypertension, benign documented in this encounter [facility]* Diagnosis Routine general medical examination at a health care facility- Primary Benign essential hypertension (CMS/HCC) Essential hypertension, benign Atrial fibrillation, persistent (HCC) (CMS/HCC) Mixed hyperlipidemia (CMS/HCC) Mixed hyperlipidemia Obstructive sleep apnea syndrome Obstructive sleep apnea (adult) (pediatric) Obesity (BMI 30-39.9) Encounter for screening for malignant neoplasm of colon Left leg pain Pain in soft tissues of limb Gait disturbance Abnormality of gait documented in this encounter [facility]* Diagnosis Preop examination- Primary Unspecified pre-operative examination Hypertension, unspecified type Permanent atrial fibrillation (CMS-HCC) Atrial fibrillation Preop examination Unspecified pre-operative examination Hypertension, unspecified type Permanent atrial fibrillation (CMS-HCC) Atrial fibrillation documented in this encounter [facility]* Diagnosis Obesity (BMI 30-39.9) documented in this encounter [facility]* Diagnosis Rotator cuff arthropathy, left- Primary Obesity (BMI 30-39.9) Bilateral hand numbness Disturbance of skin sensation Arm weakness Other musculoskeletal symptoms referable to limbs Numbness Disturbance of skin sensation Arm pain, right Pain in soft tissues of limb Arm pain, left Pain in soft tissues of limb documented in this encounter [facility]* Diagnosis Acute pain of left shoulder Rotator cuff arthropathy, left documented in this encounter [facility] Narrative No data available for this section [facility] InstructionsNot on filedocumented [facility] filedocumented in this [facility] filedocumented in [facility] No data available for this section [facility] Summary Purpose Family History No Family History Records FoundNo Family History Records FoundNo Family History Records Found No data available for this section No Family History Records FoundNo Family History Records FoundNo Family History Records Found Advance Directives No Advanced Directives Records Found Advance Directive Response Recorded Date/ Time Advance Directives No April 27 11:43am Documents on File Type Date Recorded 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 Advance Directives and Living Will 04/19/2024 3:08 PM 2024-01-06 advanced directives packet Date Activated Date Inactivated Comments 05/25/2023 10:07 AM 05/26/2023 4:07 PM Latest Code Status on File Code Status Date Activated Date Inactivated Comments Full Code 05/25/2023 10:07 AM 05/26/2023 4:07 PM Documents on File Type Date Recorded 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 Advance Directives and Living Will 04/19/2024 3:08 PM 2024-01-06 advanced directives packet Date Activated Date Inactivated Comments 05/25/2023 10:07 AM 05/26/2023 4:07 PM Chief Complaint and Reason for Visit Chief Complaint m54.2 Chief Complaint m54.2 Tingling in extremities-stenodid of cervical Additional Source Comments (unrecognized sect ion and content) No Status Records FoundNo Status Records FoundNo Status Records FoundNo Status Records FoundNo Status Records FoundNo Status Records Found INFORMATION SOURCE (unrecogn ized section and content) DATE CREATED AUTHOR 06/20/2021 [facility] DATE CREATED AUTHOR AUTHOR'S ORGANIZ ATION 10/23/2022 [facility] DATE CREATED AUTHOR AUTHOR'S ORGANIZ ATION 06/13/2024 [facility] DATE CREATED AUTHOR AUTHOR'S ORGANIZ ATION 06/30/2024 [facility] DATE CREATED AUTHOR AUTHOR'S ORGANIZ ATION 06/21/2025 [facility] DATE CREATED AUTHOR AUTHOR'S ORGANIZ ATION 06/25/2025 [facility] Care Team (unrecognized sect ion and content) Team Status: Active Member Role Status Dates Ramila Brown APRN OPERATIONS SYSTEMS SPECIALIST-C Family Provider Active Nilam Betancourt MD Primary Care Provider Active Team Status: Inactive Member Role Status Dates Nilam Betancourt MD Primary Care Provider Active Sta rt: June 11, 2024 End: June 11, 2024 Pino Rust MD Attending Provider Active Star t: June 11, 2024 End: June 11, 2024 Team Status: Inactive Member Role Status Dates Pino Rust MD Attending Provider Active Star t: June 12, 2024 End: June 12, 2024 Nilam Betancourt MD Primary Care Provider Active Sta rt: June 12, 2024 End: June 12, 2024 Production Tester Relationship Specialty Start Date End Date Nilam Betancourt MD [address] [facility] [address] PCP - Dominik IZQUIERDO 11/14/22 Nilam Betancourt MD [address] [place] [address] PCP - General Family Medicine 04/08/23 Production Tester Relationship Specialty Start Date End Date Nilam Betancourt MD [address] [facility] [place] [address] PCP - Dominik IZQUIERDO 11/14/22 Nilam Betancourt MD [address] [place] [address] PCP - General Family Medicine 04/08/23 Production Tester Relationship Specialty Start Date End Date Nilam Betancourt MD [address] [facility] [place] [address] PCP - Dominik IZQUIERDO 11/14/22 Nilam Betancourt MD [address] [place] [address] PCP - General Family Medicine 04/08/23 Production Tester Relationship Specialty Start Date End Date Nilam Betancourt MD [address] [facility] [place] [address] PCP - Dominik IZQUIERDO 11/14/22 Nilam Beatncourt MD [address] [facility] [place] [address] PCP - General Family Medicine 04/08/23 Production Tester Relationship Specialty Start Date End Date Nilam Betancourt MD [address] [facility] [place] [address] PCP - Dominik IZQUIERDO 11/14/22 Nilam Betancourt MD [address] [facility] [place] [address] PCP - General Family Medicine 04/08/23 Production Tester Relationship Specialty Start Date End Date Nilam Betancourt MD [address] [facility] [place] [address] PCP - Dominik IZQUIERDO 11/14/22 Nilam Betancourt MD [address] [facility] [address] PCP - General Family Medicine 04/08/23 Production Tester Relationship Specialty Start Date End Date Nilam Betancourt MD [address] [facility] [place] [address] PCP - Dominik IZQUIERDO 11/14/22 Nilam Betancourt MD [address] [place] [address] PCP - General Family Medicine 04/08/23 Production Tester Relationship Specialty Start Date End Date Nilam Betancourt MD [address] [place] [address] PCP - Dominik IZQUIERDO 11/14/22 Nilam Betancourt MD [address] [place] [address] PCP - General Family Medicine 04/08/23 Production Tester Relationship Specialty Start Date End Date Nilam Betancourt MD [address] [place] [address] PCP - Dominik IZQUIERDO 11/14/22 Nilam Betancourt MD [address] [place] [address] PCP - General Family Medicine 04/08/23 Production Tester Relationship Specialty Start Date End Date Nilam Betancourt MD [address] [place] [address] PCP - Dominik IZQUIERDO 11/14/22 Nilam Betancourt MD [address] [place] [address] PCP - General Family Medicine 04/08/23 Production Tester Relationship Specialty Start Date End Date Nilam Betancourt MD [address] [place] [address] PCP - Dominik IZQUIERDO 11/14/22 Nilam Betancourt MD [address] [place] [address] PCP - General Family Medicine 04/08/23 Production Tester Relationship Specialty Start Date End Date Nilam Betancourt MD PCP - General Family Medicine 06/08/24 Production Tester Relationship Specialty Start Date End Date Nilam Betancourt MD PCP - General Family Medicine 06/08/24 Production Tester Relationship Specialty Start Date End Date Nilam Betancourt MD PCP - General Family Medicine 06/08/24 Production Tester Relationship Specialty Start Date End Date Nilam Betancourt MD [address] [facility] [place] [address] PCP - General Family Medicine 06/06/17 Production Tester Relationship Specialty Start Date End Date Nilam Betancourt MD [address] [facility] [place] [address] PCP - General Family Medicine 06/06/17 Production Tester Relationship Specialty Start Date End Date Nilam Betancourt MD PCP - General Family Medicine 06/08/24 Production Tester Relationship Specialty Start Date End Date Nilam Betancourt MD [address] [facility] [place] [address] PCP - Dominik IZQUIERDO 11/14/22 Nilam Betancourt MD [address] [facility] [place] [address] PCP - General Family Medicine 04/08/23 Production Tester Relationship Specialty Start Date End Date Nilam Betancourt MD PCP - General Family Medicine 06/08/24 Production Tester Relationship Specialty Start Date End Date Nilam Betancourt MD [address] [place] [address] PCP - Dominik IZQUIERDO 11/14/22 Nilam Betancourt MD [address] [place] [address] PCP - General Family Medicine 04/08/23 Damian Morrison, MONEY MANAGER [address] [place] [id number] Licensed Practical Nurse Family Medicine 03/15/25 Production Tester Relationship Specialty Start Date End Date Nilam Betancourt MD [address] [place] [address] PCP - Dominik IZQUIERDO 11/14/22 Nilam Betancourt MD [address] [place] [address] PCP - General Family Medicine 04/08/23 Damian Morrison, MONEY MANAGER [address] [place] [address], [place] [address] Licensed Practical Nurse Family Medicine 03/15/25 Production Tester Relationship Specialty Start Date End Date Nilam Betancourt MD [address] [place] [address] PCP - Dominik IZQUIERDO 11/14/22 Nilam Betancourt MD [address] [place] [address] PCP - General Family Medicine 04/08/23 Damian Morrison, MONEY MANAGER [address] [place] [address], [place] [address] Licensed Practical Nurse Family Medicine 03/15/25 Production Tester Relationship Specialty Start Date End Date Nilam Betancourt MD [address] [place] [address] PCP - Dominik IZQUIERDO 11/14/22 Nilam Betancourt MD [address] [place] [address] PCP - General Family Medicine 04/08/23 Damian Morrison, MONEY MANAGER [address] [place] [address], [place] [address] Licensed Practical Nurse Family Medicine 03/15/25 Production Tester Relationship Specialty Start Date End Date Nilam Betancoutr MD [address] [place] [address] PCP - Dominik IZQUIERDO 11/14/22 Nilam Betancourt MD [address] [place] [address] PCP - General Family Medicine 04/08/23 Damian Morrison, MONEY MANAGER [address] [place] [address], [place] [address] Licensed Practical Nurse Family Medicine 03/15/25 Production Tester Relationship Specialty Start Date End Date Nilam Betancourt MD [address] [place] [address] PCP - Dominik IZQUIERDO 11/14/22 Nilam Betancourt MD [address] [place] [address] PCP - General Family Medicine 04/08/23 Damian Morrison LPN [address] [place] [id number] Licensed Practical Nurse Family Medicine 03/15/25 Goals (unrecognized section and content) Goals may be documented in a n alternate section Reason for Visit (unrecogniz ed section and content) Reason Comments Spasms Reason Comments Weight Check Reason Comments Flank Pain Went to [facility] on Tuesday due to lower back pain Reason Onset Date Comments Sleep Study 07/25/2024 Reason Comments Med Refill Reason Comments Hypertension Reason Comments Follow-up EST PT 12 MO FU L/S LLD Reason Comments Follow-up EST PT F/U 1 YR L/S TMP SCHED W PT NO TESTS Med Refill All cardiac meds 90 days Reason Onset Date Comments Med Refill 12/25/2024 Reason Comments Medicare Annual Wellness Visit Subsequen t Reason Comments Med Change Request Reason Comments Follow-up Reason Comments Pain Specialty Diagnoses / Procedures Referred By Contac t Referred To Contact Orthopaedic Surgery Diagnoses Rotator cuff arthropathy, left Nilam Betancourt MD [address] [place] [address] Phone: tel: fax: Fabian Quinonez PA [address] [place] [address] Phone: tel: fax: Referral ID Status Reason Start Date Expiration Date V isits Requested Visits Authorized [id number] Closed Specialty Services Required 06/11/2025 12/08/2025 1 1 FOR RECORDS PERTAINING TO PATIENTS WHO ARE OR HAVE BEEN ENROLLED IN A CHEMICAL DEPENDENCY/SUBSTANCEABUSE PROGRAM, SOME INFORMATION MAY BE OMITTED. This clinical summary was aggregated from multiple sources. Caution should be exercised in using it in the provision of clinical care. This summary normalizes information from multiple sources, and as a consequence, information in this document may materially change the coding, format and clinical context of patient data. In addition, data may be omitted in some cases. CLINICAL DECISIONS SHOULD BE BASED ON THE PRIMARY CLINICAL RECORDS. [employer] provides no warranty or guarantee of the accuracy or completeness of information in this document.
[2025-06-27 14:50] LABS: Prostate Specific Antigen Dx 4.40 ng/mL (<=4.00)
== END 2025-06-27 13:36 | disposition home or self-care (01) ==
PROVIDERS: PCP Family Medicine; Visit Provider Urology
DX: Z12.5 Encounter for screening for malignant neoplasm of prostate (principal)
CPT/HCPCS: 36415; 84153